=== PATIENT | female | born 1960 | race Caucasian/White ===

== ENCOUNTER → 2019-01-16 | Outpatient (CLI) | payer SELFPAY ==
--- NOTE | 2019-01-16 16:35 | XR ---
EXAMINATION TYPE: XR ribs LT DATE OF EXAM: 01/16/2019 COMPARISON: None HISTORY: Pain, fall TECHNIQUE: Two-view left RIBS FINDINGS: There are subtle lucencies extending through the cortex of the posterior lateral 11th and l ateral slightly posterior 10th ribs. This area appears to correlate with the patient's reported pain. No pneumothorax is evident. No additional areas suspicious for fracture are evident. IMPRESSION: 1. Posterior lateral fractures left 10th and 11th ribs.
== END | disposition home or self-care (01) ==
LOC: RADXRMAIN 13:20
PROVIDERS: ATTEND Family Medicine
DX: S22.42XA Multiple fractures of ribs, left side, initial encounter for closed fracture (principal)

== ENCOUNTER 2021-06-06 10:35 | Emergency (ER) | payer OTHER ==
[2021-06-06 10:50] VITALS: BP 161/85; PULSE 52; RESP 18; TEMP 98
[2021-06-06] MEDS ORDERED: SODIUM CHLORIDE 0.9% 1,000 ML IV STA (11:14)
[2021-06-06] MEDS ORDERED: ONDANSETRON 4 MG/2 ML VIAL IVP STA (11:15)
[2021-06-06] MEDS ORDERED: LORazepam 2 MG/ML INJ IV STA (11:15)
[2021-06-06 11:56] LABS: Basophils # (A) 0.1 k/uL (0-0.2); Basophils % (A) 1 %; Eosinophils # (A) 0.2 k/uL (0-0.7); Eosinophils % (A) 3 %; HCT 36.8 % (34.0-46.0); HGB 12.8 gm/dL (11.4-16.0); Lymphocytes # (A) 1.1 k/uL (1.0-4.8); Lymphocytes % (A) 16 %; MCH 34.1 pg (25.0-35.0); MCHC 34.8 g/dL (31.0-37.0); Mean Platelet Volume 9.2; Monocytes # (A) 0.5 k/uL (0-1.0); Monocytes % (A) 7 %; Neutrophils # (A) 4.8 k/uL (1.3-7.7); Neutrophils % (A) 70 %; Platelet Count 164 k/uL (150-450); RBC 3.75 m/uL (3.80-5.40); RDW 13.2 % (11.5-15.5); WBC 6.8 k/uL (3.8-10.6)
[2021-06-06 12:12] LABS: ALT 15 U/L (4-34); AST 27 U/L (14-36); African American GFR (CKD) >90 (>60 ml/min/1.73 sqM); Albumin 3.4 g/dL (3.5-5.0); Alkaline Phosphatase 97 U/L (38-126); Anion Gap 7 mmol/L; Blood Urea Nitrogen 11 mg/dL (7-17); Calcium 8.9 mg/dL (8.4-10.2); Carbon Dioxide 24 mmol/L (22-30); Chloride 104 mmol/L (98-107); Glucose 132 mg/dL (74-99); Non-African American GFR(CKD) >90 (>60 ml/min/1.73 sqM); Potassium 3.7 mmol/L (3.5-5.1); Sodium 135 mmol/L (137-145); Total Bilirubin 0.5 mg/dL (0.2-1.3); Total Protein 6.5 g/dL (6.3-8.2)
[2021-06-06 12:19] LABS: INR 0.9 (<1.2); Partial Thromboplastin Time 22.5 sec (22.0-30.0)
--- NOTE | 2021-06-06 12:19 | XR ---
EXAMINATION TYPE: XR chest 2V DATE OF EXAM: 06/06/2021 COMPARISON: NONE HISTORY: Weakness. TECHNIQUE: Frontal and lateral views of the chest are obtained. FINDINGS: There is mild chronic parenchymal change without suspicious focal air space opacity, pleur al effusion, or pneumothorax seen. The cardiac silhouette size is stable and within normal limits. O verlying EKG leads. Underlying scoliotic curvature or positioning seen. IMPRESSION: No acute process.
--- NOTE | 2021-06-06 12:22 | CT ---
EXAMINATION TYPE: CT brain wo con DATE OF EXAM: 06/06/2021 COMPARISON: None HISTORY: Weakness, dizziness, and vomiting. CT DLP: 1062.4 mGycm Automated exposure control for dose reduction was used. Helical imaging through the brain. FINDINGS: Periventricular, subcortical decreased attenuation is noted, there is no hemorrhage or hydrocephalus. Cerebral vascular calcifications are present. Calvarium is intact. Inflammatory change present withi n the maxillary sinus on the left, ethmoid air cells, sphenoid sinus, frontal sinus is atrophic. Orbi ts are symmetric. IMPRESSION: AGE-RELATED CHANGES OF ATROPHY AND PROBABLE CHRONIC SMALL VESSEL ISCHEMIA, CONSIDER MRI, FOLLOW-UP INDICATED. SINUS DISEASE.
--- NOTE | 2021-06-06 13:03 | ED ---
General Adult HPI - General Chief complaint: Dizziness Stated complaint: Vomiting/dizzy Time Seen by Provider: 06/06/21 11:05 Source: patient, RN notes reviewed, old records reviewed Mode of arrival: wheelchair Limitations: no limitations - History of Present Illness Initial comments: 61-year-old female presenting for evaluation of generalized weakness, dizziness. She states that she feels that the room is spinning. This began earlier today and was associated with nausea vomiting. She denies headache. Denies focal numbness or weakness. Denies any changes in her speech. She has had a cough as well as some congestion. No central chest pain. No palpitations. - Related Data Previous Rx's Medication Instructions Recorded Meclizine [Antivert] 25 mg PO BID PRN #10 tab 06/06/21 Allergies Allergy/AdvReac Type Severity Reaction Status Date / Time No Known Allergies Allergy Verified 06/06/21 11:53 Review of Systems ROS Statement: Those systems with pertinent positive or pertinent negative responses have been documented in the HPI. ROS Other: All systems not noted in ROS Statement are negative. Past Medical History Past Medical History: Myocardial Infarction ([place]) History of Any Multi-Drug Resistant Organisms: None Reported Past Surgical History: Appendectomy, Back Surgery, Heart Catheterization With Stent, Hysterectomy Additional Past Surgical History / Comment(s): R oophrectomy Past Psychological History: No Psychological Hx Reported Smoking Status: Current every day smoker Past Alcohol Use History: None Reported Past Drug Use History: None Reported General Exam Limitations: no limitations General appearance: alert, in no apparent distress Head exam: Present: atraumatic, normocephalic Eye exam: Present: normal appearance, PERRL ENT exam: Present: normal exam Neck exam: Present: normal inspection. Absent: tenderness, meningismus Respiratory exam: Present: rhonchi. Absent: respiratory distress Cardiovascular Exam: Present: normal rhythm, bradycardia GI/Abdominal exam: Present: soft. Absent: distended, tenderness, guarding, rebound Extremities exam: Present: normal inspection, normal capillary refill. Absent: pedal edema Neurological exam: Present: alert, oriented X3, CN II-XII intact, other (No ataxia, normal finger to nose bilaterally, nonfocal exam NIH is 0). Absent: motor sensory deficit Psychiatric exam: Present: normal affect, normal mood Skin exam: Present: warm, dry, intact. Absent: cyanosis, diaphoretic Course Vital Signs 06/06/21 10:46 Temperature 98 F Pulse Rate 52 L Respiratory 18 Rate Blood Pressure 161/85 O2 Sat by Pulse 96 Oximetry EKG Findings - EKG Comments: EKG Findings:: EKG: Sinus bradycardia, rate 44 OR interval 166, QRS duration 84, QTC [address] segment elevation. Medical Decision Making - Medical Decision Making 61-year-old female presenting with an episode of dizziness and vomiting. Patient is otherwise well-appearing. She is not ataxic there is no nystagmus. She has no focal neurological findings. No headache. No abdominal pain. She has a normal CBC, normal CMP, negative troponin. She has no urinary symptoms but was unable to give a urine analysis in the emergency department. Head CT was performed which shows cerebral atrophy without acute change. Chest x-ray is clear. Patient reevaluated multiple times. She is feeling better, vomiting and vertigo resolved. She is eager for discharge. Strict return parameters were discussed. - Lab Data Result diagrams: 06/06/21 11:24 06/06/21 11:24 Lab Results 06/06/21 06/06/21 06/06/21 Range/Units 11:24 11:24 11:24 WBC 6.8 (3.8-10.6) k/uL RBC 3.75 L (3.80-5.40) m/uL Hgb 12.8 (11.4-16.0) gm/dL Hct 36.8 (34.0-46.0) % MCV 98.0 (80.0-100.0) fL MCH 34.1 (25.0-35.0) pg MCHC 34.8 (31.0-37.0) g/dL RDW 13.2 (11.5-15.5) % Plt Count 164 (150-450) k/uL MPV 9.2 Neutrophils % 70 % Lymphocytes % 16 % Monocytes % 7 % Eosinophils % 3 % Basophils % 1 % Neutrophils # 4.8 (1.3-7.7) k/uL Lymphocytes # 1.1 (1.0-4.8) k/uL Monocytes # 0.5 (0-1.0) k/uL Eosinophils # 0.2 (0-0.7) k/uL Basophils # 0.1 (0-0.2) k/uL PT 10.0 (9.0-12.0) sec INR 0.9 (<1.2) APTT 22.5 (22.0-30.0) sec Sodium 135 L (137-145) mmol/L Potassium 3.7 (3.5-5.1) mmol/L Chloride 104 (98-107) mmol/L Carbon Dioxide 24 (22-30) mmol/L Anion Gap 7 mmol/L BUN 11 (7-17) mg/dL Creatinine 0.67 (0.52-1.04) mg/dL Est GFR (CKD-EPI)AfAm >90 (>60 ml/min/1.73 sqM) Est GFR (CKD-EPI)NonAf >90 (>60 ml/min/1.73 sqM) Glucose 132 H (74-99) mg/dL Plasma Lactic Acid [place] (0.7-2.0) mmol/L Calcium 8.9 (8.4-10.2) mg/dL Magnesium 2.0 (1.6-2.3) mg/dL Total Bilirubin 0.5 (0.2-1.3) mg/dL AST 27 (14-36) U/L ALT 15 (4-34) U/L Alkaline Phosphatase 97 (38-126) U/L Troponin I (0.000-0.034) ng/mL Total Protein 6.5 (6.3-8.2) g/dL Albumin 3.4 L (3.5-5.0) g/dL Coronavirus (PCR) (Not Detectd) 06/06/21 06/06/21 06/06/21 Range/Units 11:24 11:24 11:37 WBC (3.8-10.6) k/uL RBC (3.80-5.40) m/uL Hgb (11.4-16.0) gm/dL Hct (34.0-46.0) % MCV (80.0-100.0) fL MCH (25.0-35.0) pg MCHC (31.0-37.0) g/dL RDW (11.5-15.5) % Plt Count (150-450) k/uL MPV Neutrophils % % Lymphocytes % % Monocytes % % Eosinophils % % Basophils % % Neutrophils # (1.3-7.7) k/uL Lymphocytes # (1.0-4.8) k/uL Monocytes # (0-1.0) k/uL Eosinophils # (0-0.7) k/uL Basophils # (0-0.2) k/uL PT (9.0-12.0) sec INR (<1.2) APTT (22.0-30.0) sec Sodium (137-145) mmol/L Potassium (3.5-5.1) mmol/L Chloride (98-107) mmol/L Carbon Dioxide (22-30) mmol/L Anion Gap mmol/L BUN (7-17) mg/dL Creatinine (0.52-1.04) mg/dL Est GFR (CKD-EPI)AfAm (>60 ml/min/1.73 sqM) Est GFR (CKD-EPI)NonAf (>60 ml/min/1.73 sqM) Glucose (74-99) mg/dL Plasma Lactic Acid [place] 1.1 (0.7-2.0) mmol/L Calcium (8.4-10.2) mg/dL Magnesium (1.6-2.3) mg/dL Total Bilirubin (0.2-1.3) mg/dL AST (14-36) U/L ALT (4-34) U/L Alkaline Phosphatase (38-126) U/L Troponin I <0.012 (0.000-0.034) ng/mL Total Protein (6.3-8.2) g/dL Albumin (3.5-5.0) g/dL Coronavirus (PCR) Not Detected (Not Detectd) Disposition Clinical Impression: Vertigo Disposition: HOME SELF-CARE Condition: Good Instructions (If sedation given, give patient instructions): Dizziness (ED) Prescriptions: Meclizine [Antivert] 25 mg PO BID PRN #10 tab PRN Reason: Vertigo Is patient prescribed a controlled substance at d/c from ED?: No Referrals: Bello Travis MD [Primary Care Provider] - 1-2 days Time of Disposition: 14:50
== END 2021-06-06 15:30 | disposition home or self-care (01) ==
LOC: EC 10:35
DX: R42 Dizziness and giddiness (principal); I25.2 Old myocardial infarction; F17.200 Nicotine dependence, unspecified, uncomplicated
CPT/HCPCS: 93005; 80053; 83605; 83735; 84484; 85025; 85610; 85730; 87635; 71046; 70450; 99284; 96374; 96375; J2060; J2405

== ENCOUNTER 2021-10-04 08:56 | Inpatient (IN) | payer OTHER ==
[2021-10-04] MEDS ORDERED: SODIUM CHLORIDE 0.9% 500 ML 500 ML IV STA (09:04)
[2021-10-04] MEDS ORDERED: KETOROLAC 15 MG/ML 1 ML VIAL IVP STA (09:16)
--- NOTE | 2021-10-04 09:22 | ED ---
General Adult HPI <Olvin Durand - Last Filed: 10/04/21 09:56> - General Source: patient, RN notes reviewed, old records reviewed Mode of arrival: wheelchair Limitations: no limitations - History of Present Illness -: days(s) (2) Location: left, upper extremity (arm) Severity scale (1-10): 4 Quality: constant, other ("feels like gas pain") Consistency: constant Improves with: none Worsens with: none Associated Symptoms: other (Epigastric pain) Treatments Prior to Arrival: Aspirin <Serge De Anda - Last Filed: 10/04/21 15:11> - General Chief complaint: Extremity Injury, Upper Stated complaint: L arm pain Time Seen by Provider: 10/04/21 09:10 - History of Present Illness Initial comments: This is a well-appearing 61-year-old female that presents to the emergency room with 2 days of left arm pain and epigastric pain. Patient states that the arm pain did not go away so she called her daughter to bring her to the hospital today. She states that the pain in the left arm originates mid forearm and goes up into her neck. She denies any chest pain or shortness of breath. No nausea, vomiting, diarrhea or fevers. She states that she did feel a little sweaty this morning. She does have a history of an [place] [address] Person. She did take a baby aspirin this morning. (Serge De Anda) - Related Data Home Medications Medication Instructions Recorded Confirmed Meclizine [Antivert] 25 mg PO DAILY PRN 10/04/21 10/04/21 Allergies Allergy/AdvReac Type Severity Reaction Status Date / Time No Known Allergies Allergy Verified 10/04/21 11:01 Review of Systems ROS Other: All systems not noted in ROS Statement are negative. <Olvin Durand - Last Filed: 10/04/21 09:56> ROS Other: All systems not noted in ROS Statement are negative. <Serge De Anda - Last Filed: 10/04/21 15:11> ROS Statement: Those systems with pertinent positive or pertinent negative responses have been documented in the HPI. Past Medical History Past Medical History: Myocardial Infarction ([place]) History of Any Multi-Drug Resistant Organisms: None Reported Past Surgical History: Appendectomy, Back Surgery, Heart Catheterization With Stent, Hysterectomy Additional Past Surgical History / Comment(s): R oophrectomy Past Psychological History: No Psychological Hx Reported Smoking Status: Current every day smoker Past Alcohol Use History: None Reported Past Drug Use History: None Reported <Serge De Anda - Last Filed: 10/04/21 15:11> General Exam Limitations: no limitations General appearance: alert, in no apparent distress Head exam: Absent: atraumatic Eye exam: Absent: scleral icterus, conjunctival injection Neck exam: Present: normal inspection, full ROM. Absent: tenderness, meni ngismus, lymphadenopathy, thyromegaly Respiratory exam: Present: normal lung sounds bilaterally. Absent: respiratory distress, wheezes, rales, rhonchi, stridor, chest wall tenderness, accessory muscle use, decreased breath sounds Cardiovascular Exam: Present: bradycardia (51), normal heart sounds. Absent: irregular rhythm, JVD GI/Abdominal exam: Present: soft. Absent: distended, tenderness, guarding, rebound, rigid Extremities exam: Present: normal inspection, normal capillary refill. Absent: tenderness, pedal edema, joint swelling Left Upper Arm exam: Present: normal inspection, full ROM. Absent: tenderness Elbow exam: Present: normal inspection, full ROM. Absent: tenderness Forearm Wrist exam: Present: normal inspection, full ROM, tenderness (mid forearm with deep palpation). Absent: swelling, erythema, tenderness over anatomical snuff box Hand Wrist exam: Present: normal inspection, full ROM. Absent: tenderness, swelling, erythema Vascular: Present: normal capillary refill, radial pulse. Absent: vascular compromise Back exam: Absent: tenderness, CVA tenderness (R), CVA tenderness (L) Neurological exam: Present: alert, oriented X3 Psychiatric exam: Present: normal affect, normal mood Skin exam: Present: warm, dry, intact, normal color. Absent: rash, cyanosis, diaphoretic, petechiae, pallor <Serge De Anda - Last Filed: 10/04/21 15:11> Course - Reevaluation(s) Time: 09:30 <Serge De Anda - Last Filed: 10/04/21 15:11> Vital Signs 10/04/21 10/04/21 10/04/21 08:57 09:56 10:03 Temperature 96.5 F L Pulse Rate 49 L 58 L 51 L Respiratory 18 19 18 Rate Blood Pressure 160/83 193/84 184/83 O2 Sat by Pulse 99 99 100 Oximetry - Reevaluation(s) Reevaluation #1: 10/04/21 09:43 Dr. Durand reviewed EKG, at bedside to evaluate patient. (Serge De Anda) EKG Findings - EKG Results: EKG: sinus rhythm EKG shows: bradycardia (Ventricular rate 51, GA interval 0.128, QRS 0.94, QTC 0.493; old EKG 10/04/21; ST elevation noted in leads III and aVF) <Serge De Anda - Last Filed: 10/04/21 15:11> Medical Decision Making - Lab Data Result diagrams: 10/04/21 09:23 10/04/21 09:23 <Olvin Durand - Last Filed: 10/04/21 09:56> - Lab Data Result diagrams: 10/04/21 09:23 10/04/21 09:23 <Serge De Anda - Last Filed: 10/04/21 15:11> - Medical Decision Making PA attestation: I, Dr. Olvin Durand, personally saw and examined the patient. I have reviewed and agree with the resident/PA findings, including all diagnostic interpretations and treatment plans as written unless otherwise stated. I was present for the guy portions of any procedures performed and inclusive time noted for any critical care statement. Patient was seen and evaluated at the bedside along with nurse practitioner. Briefly patient is a 61-year-old female presents to the emergency Department with atypical chest pain with typical features. She initially states that she had epigastric pain and left wrist pain that radiated up her upper extremity into her axilla. Initial EKG showed mild See elevations in 2 of the 3 inferior leads. Repeat EKG showed dynamic changes with STEMI changes in inferior leads and also reciprocal changes. Code STEMI page. Case discussed with furniture restorer television news photographer, Dr. Manriquez was agreeable with [facility] activation. Patient given full dose of aspirin. (Olvin Durand) 61-year-old female that presents with left arm pain and epigastric pain for 2 days. EKG shows some concerning ST changes in leads III and aVF. Dr. Durand at bedside to evaluate patient. Repeat EKG completed and given to Dr. Bayudan now showing ST elevating with reciprocal changes. Troponin is positive at 0.40 . Code STEMI was paged and patient was taken to [facility]. (Serge De Anda) - Lab Data Lab Results 10/04/21 10/04/21 10/04/21 Range/Units 09:23 09:23 09:23 WBC 5.6 (3.8-10.6) k/uL RBC 4.18 (3.80-5.40) m/uL Hgb 13.9 (11.4-16.0) gm/dL Hct 41.6 (34.0-46.0) % MCV 99.5 (80.0-100.0) fL MCH 33.1 (25.0-35.0) pg MCHC 33.3 (31.0-37.0) g/dL RDW 13.7 (11.5-15.5) % Plt Count 159 (150-450) k/uL MPV 8.6 Neutrophils % 73 % Lymphocytes % 17 % Monocytes % 5 % Eosinophils % 3 % Basophils % 1 % Neutrophils # 4.1 (1.3-7.7) k/uL Lymphocytes # 0.9 L (1.0-4.8) k/uL Monocytes # 0.3 (0-1.0) k/uL Eosinophils # 0.2 (0-0.7) k/uL Basophils # 0.0 (0-0.2) k/uL PT 10.0 (9.0-12.0) sec INR 0.9 (<1.2) APTT 21.9 L (22.0-30.0) sec Sodium (137-145) mmol/L Potassium (3.5-5.1) mmol/L Chloride (98-107) mmol/L Carbon Dioxide (22-30) mmol/L Anion Gap mmol/L BUN (7-17) mg/dL Creatinine (0.52-1.04) mg/dL Est GFR (CKD-EPI)AfAm (>60 ml/min/1.73 sqM) Est GFR (CKD-EPI)NonAf (>60 ml/min/1.73 sqM) Glucose (74-99) mg/dL Plasma Lactic Acid [place]isteo (0.7-2.0) mmol/L Calcium (8.4-10.2) mg/dL Total Bilirubin (0.2-1.3) mg/dL AST (14-36) U/L ALT (4-34) U/L Alkaline Phosphatase (38-126) U/L Troponin I (0.000-0.034) ng/mL Total Protein (6.3-8.2) g/dL Albumin (3.5-5.0) g/dL Amylase (30-110) U/L Lipase (23-300) U/L Urine Color Light Yellow Urine Appearance Clear (Clear) Urine pH 6.5 (5.0-8.0) Ur Specific [place] 1.050 H (1.001-1.035) Urine Protein Negative (Negative) Urine Glucose (UA) Negative (Negative) Urine Ketones Negative (Negative) Urine Blood Negative (Negative) Urine Nitrite Negative (Negative) Urine Bilirubin Negative (Negative) Urine Urobilinogen <2.0 (<2.0) mg/dL Ur Leukocyte Esterase Negative (Negative) 10/04/21 10/04/21 10/04/21 Range/Units 09:23 09:23 09:23 WBC (3.8-10.6) k/uL RBC (3.80-5.40) m/uL Hgb (11.4-16.0) gm/dL Hct (34.0-46.0) % MCV (80.0-100.0) fL MCH (25.0-35.0) pg MCHC (31.0-37.0) g/dL RDW (11.5-15.5) % Plt Count (150-450) k/uL MPV Neutrophils % % Lymphocytes % % Monocytes % % Eosinophils % % Basophils % % Neutrophils # (1.3-7.7) k/uL Lymphocytes # (1.0-4.8) k/uL Monocytes # (0-1.0) k/uL Eosinophils # (0-0.7) k/uL Basophils # (0-0.2) k/uL PT (9.0-12.0) sec INR (<1.2) APTT (22.0-30.0) sec Sodium 134 L (137-145) mmol/L Potassium 4.6 (3.5-5.1) mmol/L Chloride 103 (98-107) mmol/L Carbon Dioxide 26 (22-30) mmol/L Anion Gap 5 mmol/L BUN 16 (7-17) mg/dL Creatinine 0.77 (0.52-1.04) mg/dL Est GFR (CKD-EPI)AfAm >90 (>60 ml/min/1.73 sqM) Est GFR (CKD-EPI)NonAf 83 (>60 ml/min/1.73 sqM) Glucose 122 H (74-99) mg/dL Plasma Lactic Acid [place] 1.0 (0.7-2.0) mmol/L Calcium 8.6 (8.4-10.2) mg/dL Total Bilirubin 0.7 (0.2-1.3) mg/dL AST 34 (14-36) U/L ALT 15 (4-34) U/L Alkaline Phosphatase 67 (38-126) U/L Troponin I 0.400 H* (0.000-0.034) ng/mL Total Protein 7.5 (6.3-8.2) g/dL Albumin 4.1 (3.5-5.0) g/dL Amylase 99 (30-110) U/L Lipase 146 (23-300) U/L Urine Color Urine Appearance (Clear) Urine pH (5.0-8.0) Ur Specific [place] (1.001-1.035) Urine Protein (Negative) Urine Glucose (UA) (Negative) Urine Ketones (Negative) Urine Blood (Negative) Urine Nitrite (Negative) Urine Bilirubin (Negative) Urine Urobilinogen (<2.0) mg/dL Ur Leukocyte Esterase (Negative) Critical Care Time Critical Care Time: Yes Total Critical Care Time: 35 <Serge De Anda - Last Filed: 10/04/21 15:11> Disposition <Olvin Durand - Last Filed: 10/04/21 09:56> Decision Date: 10/04/21 <Serge De Anda - Last Filed: 10/04/21 15:11> Clinical Impression: STEMI (ST elevation myocardial infarction) Disposition: ADMITTED IP TO THIS HOSP
[2021-10-04] MEDS ORDERED: PANTOPRAZOLE 40 MG/10 ML VIAL IVP STA (09:30)
[2021-10-04] MEDS ORDERED: ASPIRIN 81 MG PO STA ×2 (09:30→09:44)
[2021-10-04 09:37] LABS: Basophils % (A) 1 %; Eosinophils # (A) 0.2 k/uL (0-0.7); Eosinophils % (A) 3 %; HCT 41.6 % (34.0-46.0); HGB 13.9 gm/dL (11.4-16.0); Lymphocytes # (A) 0.9 k/uL (1.0-4.8); Lymphocytes % (A) 17 %; MCH 33.1 pg (25.0-35.0); MCHC 33.3 g/dL (31.0-37.0); MCV 99.5 fL (80.0-100.0); Mean Platelet Volume 8.6; Monocytes # (A) 0.3 k/uL (0-1.0); Monocytes % (A) 5 %; Neutrophils # (A) 4.1 k/uL (1.3-7.7); Neutrophils % (A) 73 %; Platelet Count 159 k/uL (150-450); RBC 4.18 m/uL (3.80-5.40); RDW 13.7 % (11.5-15.5); WBC 5.6 k/uL (3.8-10.6)
[2021-10-04] MEDS ORDERED: HYDROmorphone 0.5 MG/0.5 ML SYRINGE IVP STA (09:41)
[2021-10-04 09:44] LABS: ALT 15 U/L (4-34); AST 34 U/L (14-36); African American GFR (CKD) >90 (>60 ml/min/1.73 sqM); Albumin 4.1 g/dL (3.5-5.0); Alkaline Phosphatase 67 U/L (38-126); Amylase 99 U/L (30-110); Anion Gap 5 mmol/L; Blood Urea Nitrogen 16 mg/dL (7-17); Calcium 8.6 mg/dL (8.4-10.2); Carbon Dioxide 26 mmol/L (22-30); Chloride 103 mmol/L (98-107); Glucose 122 mg/dL (74-99); Lipase 146 U/L (23-300); Non-African American GFR(CKD) 83 (>60 ml/min/1.73 sqM); Potassium 4.6 mmol/L (3.5-5.1); Sodium 134 mmol/L (137-145); Total Bilirubin 0.7 mg/dL (0.2-1.3); Total Protein 7.5 g/dL (6.3-8.2)
[2021-10-04] MEDS ORDERED: HEPARIN SODIUM 1,000 UN/ML (10ML VL) IV PRN (09:45)
[2021-10-04] MEDS ORDERED: HEPARIN SODIUM 1,000 UN/ML (10ML VL) IV ONE (09:45)
[2021-10-04] MEDS ORDERED: HEPARIN SOD,PORK IN 0.45% NACL 25,000 UNIT in 0.45% NACL 1 250ML.BAG IV SCH (09:45)
[2021-10-04] MEDS ORDERED: NALOXONE 0.4 MG/ML 1 ML VIAL IV PRN (09:46)
[2021-10-04 09:48] LABS: INR 0.9 (<1.2)
[2021-10-04 09:50] LABS: Partial Thromboplastin Time 21.9 sec (22.0-30.0)
[2021-10-04] MEDS: SODIUM CHLORIDE 0.9% 1,000 ML IV SCH ×2 (10:02→20:11)
[2021-10-04] MEDS ORDERED: HEPARIN SODIUM 1,000 UN/ML (10ML VL) ONE (10:15)
[2021-10-04] MEDS ORDERED: VERAPAMIL 2.5 MG/ML 2 ML AMP ONE (10:15)
[2021-10-04] MEDS ORDERED: LIDOCAINE 1% INJ 10MG/ML (20 ML MDV) ONE (10:15)
[2021-10-04] MEDS ORDERED: fentaNYL (PF) 50 MCG/ML 2 ML AMP ONE (10:15)
--- NOTE | 2021-10-04 10:17 | P.CRDCN ---
History of Present Illness Consult date: 10/04/21 History of present illness: History of Present Illness: The patient is a 61-year-old female with a known history of chronic tobacco use who presented with bilateral arm discomfort going on for the last few days worse today. Her initial EKG showed mild ST segment changes but subsequently had significant ST elevation inferiorly with ST depression anteriorly. The patient has a prior history of CAD status post [place] [address] Person but has not been followed. She has some dyspnea on exertion but no chronic chest discomfort. She denies any dizziness, palpitations or syncope. She denies any PND, orthopnea or peripheral edema. She is only taking aspirin and meclizine on a when necessary basis. She smokes on a regular basis. She denies any diabetes, her lipid profile is not available to me. Review of Systems: Respiratory: She has chronic tobacco use and some dyspnea on exertion GI: She had nausea and vomiting today. No history of peptic ulcer disease. No recent GI bleed. : No hematuria or dysuria. Nervous System: No stroke or seizure. Physical Examination: 61-year-old female with small body weight, no apparent distress. Blood pressure 184/80 with a heart rate in the 50s Head: Normocephalic. Eyes: Sclerae nonicteric. Neck: Good carotid upstroke, no bruit, no jugular venous distention. Lungs: Decrease air exchange bilaterally Heart: Regular rate and rhythm, S1-S2, no S3, no rub. No murmur. Abdomen: Soft nontender, positive bowel sounds no organomegaly. Extremities: No edema, intact distal pulses. Labs: Significant EKG shows sinus mechanism with ST segment elevation in lead [address] depression in the anterior precordial leads. Troponin 0.4, BUN/creatinine 16 and 0.77, hemoglobin 13.9. Impression: 1. Acute inferolateral wall myocardial infarction with ST depression anteriorly consistent with probable RV infarct or posterior extension 2. History of chronic tobacco use 3. Prior history of CAD and stenting, details not available Plan: 1. Proceed with emergency cardiac catheterization, the procedure as well as the risks and the complications were discussed with the patient and her family. They are in full understanding and agreement 2. Add statin 3. Obtain an echocardiogram with Doppler 4. Depending on her progress further recommendations will be made 5. Thank you for this consult we will follow with you. Past Medical History Past Medical History: Myocardial Infarction ([place]) History of Any Multi-Drug Resistant Organisms: None Reported Past Surgical History: Appendectomy, Back Surgery, Heart Catheterization With Stent, Hysterectomy Additional Past Surgical History / Comment(s): R oophrectomy Past Psychological History: No Psychological Hx Reported Smoking Status: Current every day smoker Past Alcohol Use History: None Reported Past Drug Use History: None Reported Medications and Allergies Home Medications Medication Instructions Recorded Confirmed Type Meclizine [Antivert] 25 mg PO BID PRN #10 tab 06/06/21 Rx Allergies Allergy/AdvReac Type Severity Reaction Status Date / Time No Known Allergies Allergy Verified 10/04/21 09:02 Physical Exam Vitals: Vital Signs Temp Pulse Resp BP Pulse Ox 10/04/21 10:03 51 L 18 184/83 100 10/04/21 09:56 58 L 19 193/84 99 10/04/21 08:57 96.5 F L 49 L 18 160/83 99 Intake and Output 10/03/21 10/04/21 10/04/21 22:59 06:59 14:59 Other: Weight 40.37 kg Results 10/04/21 09:23 10/04/21 09:23 Cardiac Enzymes 10/04/21 10/04/21 Range/Units 09:23 09:23 AST 34 (14-36) U/L Troponin I 0.400 H* (0.000-0.034) ng/mL Coagulation 10/04/21 Range/Units 09:23 PT 10.0 (9.0-12.0) sec APTT 21.9 L (22.0-30.0) sec CBC 10/04/21 Range/Units 09:23 WBC 5.6 (3.8-10.6) k/uL RBC 4.18 (3.80-5.40) m/uL Hgb 13.9 (11.4-16.0) gm/dL Hct 41.6 (34.0-46.0) % Plt Count 159 (150-450) k/uL Comprehensive Metabolic Panel 10/04/21 Range/Units 09:23 Sodium 134 L (137-145) mmol/L Potassium 4.6 (3.5-5.1) mmol/L Chloride 103 (98-107) mmol/L Carbon Dioxide 26 (22-30) mmol/L BUN 16 (7-17) mg/dL Creatinine 0.77 (0.52-1.04) mg/dL Glucose 122 H (74-99) mg/dL Calcium 8.6 (8.4-10.2) mg/dL AST 34 (14-36) U/L ALT 15 (4-34) U/L Alkaline Phosphatase 67 (38-126) U/L Total Protein 7.5 (6.3-8.2) g/dL Albumin 4.1 (3.5-5.0) g/dL Current Medications Generic Name Dose Route Start Last Admin Trade Name Freq PRN Reason Stop Dose Admin Heparin Sodium (Porcine) 0 unit 10/04/21 09:45 Heparin Sodium 1,000 Un/Ml (10ml Vl) IV PER PROTOCOL PRN Low PTT Protocol Heparin Sodium/Sodium Chloride 250 mls @ 4.844 mls/hr 10/04/21 09:45 25,000 unit/ Sodium Chloride IV .Q24H PRINCE Protocol 12 UNITS/KG/HR Sodium Chloride 1,000 mls @ 80 mls/hr 10/04/21 10:00 10/04/21 10:02 Saline 0.9% IV 80 mls/hr .[id number] PRINCE Administration Naloxone HCl 0.2 mg 10/04/21 09:46 Naloxone 0.4 Mg/Ml 1 Ml Vial IV Q2M PRN Opioid Reversal Intake and Output 10/03/21 10/04/21 10/04/21 22:59 06:59 14:59 Other: Weight 40.37 kg Patient Weight 10/05/21 06:59 Weight 40.37 kg 10/04/21 09:23 10/04/21 09:23
--- NOTE | 2021-10-04 10:22 | XR ---
EXAMINATION TYPE: XR chest 1V portable DATE OF EXAM: 10/04/2021 9:54 AM COMPARISON:Chest radiographs from 06/06/2021 TECHNIQUE: XR chest 1V portable Frontal view of the chest. CLINICAL INDICATION:Female, 61 years old with history of abdominal pain; FINDINGS: Lungs/Pleura: There is flattening of the diaphragm with increased lucency of the lungs. No evidence o f pneumothorax, pleural effusion or focal consolidation. Pulmonary vascularity: Unremarkable. Heart/mediastinum: Cardiomediastinal silhouette is unremarkable. Musculoskeletal: No acute osseous pathology. IMPRESSION: 1. No acute cardiopulmonary disease process. 2. COPD changes.
[2021-10-04] MEDS ORDERED: fentaNYL (PF) 50 MCG/ML 2 ML AMP IV ONE (10:28)
[2021-10-04] MEDS ORDERED: LIDOCAINE 1% INJ 10MG/ML (20 ML MDV) SQ ONE (10:30)
[2021-10-04] MEDS ORDERED: IV FLUID CONTINUATION 1,000 ML IV ONE (10:33)
[2021-10-04] MEDS ORDERED: VERAPAMIL SYRINGE (5 MG/10 ML) INTRAARTER ONE (10:33)
[2021-10-04] MEDS ORDERED: TICAGRELOR 90 MG TAB ONE (10:37)
[2021-10-04] MEDS ORDERED: TICAGRELOR 90 MG TAB PO ONE (10:41)
[2021-10-04] MEDS: NITROGLYCERIN 1000MCG/10ML SYRINGE INTRACORON ONE ×2 (10:42→10:59)
[2021-10-04] MEDS ORDERED: IOPAMIDOL-370 125ML BTL INJ ONE (10:52)
[2021-10-04] MEDS ORDERED: amLODIPine 5 MG TAB ONE (11:14)
[2021-10-04] MEDS ORDERED: amLODIPine 5 MG TAB PO ONE (11:15)
[2021-10-04] MEDS ORDERED: IOPAMIDOL-370 100ML BTL INJ ONE (11:20)
[2021-10-04] MEDS ORDERED: NITROGLYCERIN SL TABS 0.4 MG TAB SUBLINGUAL PRN (11:28)
[2021-10-04] MEDS ORDERED: MAG HYDROX/AL HYDROX/SIMETH 30 ML CUP PO PRN (11:28)
[2021-10-04] MEDS ORDERED: ZOLPIDEM 5 MG TAB PO PRN (11:28)
[2021-10-04] MEDS ORDERED: ATROPINE SULFATE 0.1 MG/ML 10ML SYRINGE IV PRN (11:28)
[2021-10-04] MEDS ORDERED: RX INFO: IV CONTRAST WAS GIVEN 1 EACH MISC MISCELLANE PRN (11:28)
[2021-10-04] MEDS ORDERED: SODIUM CHLORIDE 0.9% 1,000 ML in EMPTY BAG 1 BAG IV SCH (11:30)
--- NOTE | 2021-10-04 11:45 | P.CARDCATH ---
Date of Procedure: 10/04/21 Description of Procedure: Cardiac Catheterization: The patient is a 53-year-old female with a known history of coronary disease, status post stenting of the circumflex in 2008, history of chronic tobacco use who has not been followed in the office and presents with arm discomfort. Initial EKG shows no acute diagnostic changes and on a follow-up EKG she had ST segment elevation in the inferior leads. Recommendations were made regarding cardiac catheterization, the risks and the complications were discussed with the patient who is in full understanding and agreement. Procedure Description: Patient was brought to prosthetic lab technician in fasting semi-sedated state after receiving Fentanyl and Benadryl achieiving moderate conscious sedated state. Using Xylocaine Anesthesia and Seldinger technique, a 6-Cambodian sheath was introduced in the right radial artery . Subsequently, selective coronary angiography performed using a 5-Cambodian 3-1/2 bend left Herminia and 6-Cambodian 4 bend right guiding catheter. After performing angioplasty and stenting of the RCA images of the left coronary system were performed. Multiple views of the coronary artery including hemiaxial views were obtained. The 5-Cambodian Pigtail catheter was used to cross the aortic valve and LVEDP was calculated. . There was no immediate complication. Patient was returned to room in stable condition. Of note, the patient received a total of 2000 units of intravenous heparin as well as intra-arterial verapamil. There was no immediate complications. Findings: Fluoroscopy showed severe calcifications of the coronary arteries Left main: This is a short sized vessel, bifurcating into LAD and left circumflex left main has no evidence of high-grade stenosis LAD: This is a large size vessel, reaching to the apex giving rise to 2 small diagonal branch the LAD has intimal disease in the proximal and midsegment of 20-30% with no high-grade stenosis Left circumflex: This is a nondominant vessel, giving rise to 2 large obtuse margin branch. The stented segment proximally is patent with mild in-stent restenosis of 2030%, there is diffuse intimal disease in the proximal ascending in the obtuse marginal branch with no high-grade stenosis. RCA: This is a large dominant vessel, bifurcating distally to PDA and PLV, the mid segment is calcified and has areas stenosis up to 70%. At the distal segment prior to the bifurcation there is 99% stenosis. The PLV has 60-70% stenosis Left Ventriculogram: Was not performed Hemodynamics: There was no gradient across the aortic valve, LVEDP 20 mmHg Conclusion: 1. Calcified coronary arteries 2. Subtotally occluded distal RCA with diffuse significant disease in the midsegment 3. Patent stent in the circumflex with mild disease 4. Mild disease in the RCA Recommendations: I have recommended to proceed with angioplasty and stenting, the procedure as well as the risks and the complications were discussed with the patient who was in full understanding and agreement.
[2021-10-04 11:48] LABS: Glucose,Whole Blood 117 mg/dL (75-99)
--- NOTE | 2021-10-04 11:52 | P.CARDCATH ---
Date of Procedure: 10/04/21 Description of Procedure: PERCUTANEOUS TRANSLUMINAL CORONARY ANGIOPLASTY CLINICAL INFORMATION: The patient is a 61-year-old female with a known history of coronary disease who presented with arm discomfort, initial EKG showed no acute changes on the subsequent EKG she had ST segment elevation inferiorly, she underwent cardiac catheterization and was found to have subtotally occluded distal RCA with diffuse significant disease in the mid RCA. Recommendations were made regarding angioplasty and stenting. The procedure as well as the risks and the complications were discussed with the patient who is in full agreement and understanding. PROCEDURE: A 6 [place] 4 bend right Herminia guiding catheter was introduced into the system. After cannulating the right coronary ostium, a 0.014 balanced medium J-wire was advanced across the lesion and positioned distally. Following that the 2.5 x 12 mm Treck balloon was advanced into inflation at 8 hira were done. Following that a 2.5 x 15 mm Xience myra point stent was deployed. It was dilated at 16. Proximal to that stent 2.5 x 33 mm Xience myra point stent deployed and postdilated at 16 hira and after removing the balloon another 2.75 x 28 mm Xience myra point stent was deployed and postdilated at 16 hira. Following that a 2.0 x 3 mm NC Treck balloon was advanced and multiple inflation at maximum of 10 hira were done. After the last inflation, after appropriate wait, the balloon and the guidewire were withdrawn back into the guiding catheter. Images were obtained and repeated. Those images reveal stable successful stenting. At that point, the guiding catheter, the balloon, and guidewire were removed. Images of the left coronary system and LVEDP were obtained The sheath was removed. Hemostasis was obtained with deployment for TR band. There were no immediate complications. The patient was returned to the room in stable condition. Of note, the patient received 2000 units of heparin as well as Brilinta. Her ACT was followed. She had arm discomfort and EKG changes that resolved at the end of the procedure RESULTS: Successful stenting of the distal RCA with a long lesion in the midsegment with reduction of stenosis from 99 % to 0 %. RECOMMENDATIONS: The patient will be continued on dual antiplatelet treatment for one year. The importance of close follow-up and aggressive risk modification was discussed with the patient and her family and therefore and standing and agreement. Duration of sedation 54 minutes.
[2021-10-04 12:25] LABS: Appearance,Urine Clear (Clear); Bilirubin,Urine Negative (Negative); Blood,Urine Negative (Negative); Color,Urine Light Yellow; Glucose,Urine (UA) Negative (Negative); Ketones,Urine Negative (Negative); Leukocyte Esterase,Urine Negative (Negative); Nitrite,Urine Negative (Negative); PH, Urine 6.5 (5.0-8.0); Protein,Urine Negative (Negative); Urobilinogen,Urine <2.0 mg/dL (<2.0)
[2021-10-04] MEDS: lisinopriL 5 MG TAB PO SCH ×2 (12:36→20:05)
--- NOTE | 2021-10-04 16:00 | P.HPIM ---
History of Present Illness This is a pleasant 61 years old female with past medical history of coronary artery disease and stent placement, she is current cigarette smoker, who presents with bilateral arm pain for the last 2 days, this morning her pain was worse so she decided to come to the hospital. She denies any chest pain or dyspnea, she does not look in distress while sitting in bed. No other specific complaints. She admits to smoking half pack per day and she was counseled to quit. No alcohol or illicit drug Review of Systems Review of systems CONSTITUTIONAL: No fever, no malaise, no fatigue. HEENT: No recent visual problems or hearing problems. Denied any sore throat. CARDIOVASCULAR: No orthopnea, PND, no palpitations, no syncope. PULMONARY: No shortness of breath, no cough, no hemoptysis. GASTROINTESTINAL: No diarrhea, no nausea, no vomiting, no abdominal pain. Normoactive bowel sounds. NEUROLOGICAL: No headaches, no weakness, no numbness. HEMATOLOGICAL: Denies any bleeding or petechiae. GENITOURINARY: Denies any burning micturition, frequency, or urgency. MUSCULOSKELETAL/RHEUMATOLOGICAL: Denies any joint pain, swelling, or any muscle pain. ENDOCRINE: Denies any polyuria or polydipsia. Past Medical History Past Medical History: Myocardial Infarction ([place]) History of Any Multi-Drug Resistant Organisms: None Reported Past Surgical History: Appendectomy, Back Surgery, Heart Catheterization With S tent, Hysterectomy Additional Past Surgical History / Comment(s): R oophrectomy Past Psychological History: No Psychological Hx Reported Smoking Status: Current every day smoker Past Alcohol Use History: None Reported Past Drug Use History: None Reported - Past Family History Mother Family Medical History: Unable to Obtain Medications and Allergies Home Medications Medication Instructions Recorded Confirmed Type Meclizine [Antivert] 25 mg PO DAILY PRN 10/04/21 10/04/21 History Allergies Allergy/AdvReac Type Severity Reaction Status Date / Time No Known Allergies Allergy Verified 10/04/21 11:01 Physical Exam Vitals: Vital Signs Temp Pulse Resp BP Pulse Ox 10/04/21 09:56 58 L 19 193/84 99 10/04/21 08:57 96.5 F L 49 L 18 160/83 99 Intake and Output 10/03/21 10/04/21 10/04/21 22:59 06:59 14:59 Other: Weight 40.37 kg -GENERAL: The patient is alert and oriented x3, not in any acute distress. Thin built HEENT: Pupils are round and equally reacting to light. EOMI. No scleral icterus. No conjunctival pallor. Normocephalic, atraumatic. No pharyngeal erythema. No thyromegaly. CARDIOVASCULAR: S1 and S2 present. No murmurs, rubs, or gallops. PULMONARY: Chest is clear to auscultation, no wheezing or crackles. ABDOMEN: Soft, nontender, nondistended, normoactive bowel sounds. No palpable organomegaly. MUSCULOSKELETAL: No joint swelling or deformity. EXTREMITIES: No cyanosis, clubbing, or pedal edema. NEUROLOGICAL: Gross neurological examination did not reveal any focal deficits. SKIN: No rashes. no petechiae. Results CBC & Chem 7: 10/04/21 09:23 10/04/21 09:23 Labs: Abnormal Lab Results - Last 24 Hours (Table) 10/04/21 10/04/21 10/04/21 Range/Units 09:23 09:23 09:23 Lymphocytes # 0.9 L (1.0-4.8) k/uL APTT 21.9 L (22.0-30.0) sec Sodium 134 L (137-145) mmol/L Glucose 122 H (74-99) mg/dL Assessment and Plan Assessment: Acute ST elevation myocardial infarction Nicotine dependence Elevated blood pressure, deep monitoring for possible hypertension History of coronary artery disease with previous stenting Thin built with BMI of 15.8, possible elements of mild to moderate protein- calorie malnutrition Plan: This is a pleasant 61 race old female who presents with STEMI Patient is taken to cardiac cath emergently Follow-up with muffler mechanic recommendation Follow up on echocardiogram consult dietitian Labs and medication were reviewed.. Continue same treatment. Continue with symptomatic treatment. Resume home medication. Monitor lytes and vitals. DVT and GI prophylaxis. Further recommendations as per clinical course of the patient DVT prophylaxis: Subcutaneous heparin GI Prophylaxis: Pepcid
[2021-10-04 16:12] LABS: Chol/HDL Ratio 3.92 Ratio; LDL Cholesterol,Calculated 112.8 mg/dL (0.0-131.0)
--- NOTE | 2021-10-04 16:44 | ECHOF ---
Referral Reason:mi MEASUREMENTS -------- HEIGHT: 160.0 cm WEIGHT: 40.4 kg BP: 184/83 IVSd: 1.4 cm (0.6 - 1.1) LVIDd: 3.8 cm (3.9 - 5.3) LVPWd: 1.4 cm (0.6 - 1.1) EDV(Teich): 63 ml IVSs: 1.6 cm LVIDs: 2.8 cm LVPWs: 1.8 cm %IVS Thck: 13 % ESV(Teich): 29 ml EF(Teich): 54 % %FS: 27 % SV(Teich): 34 ml RVIDd: 3.4 cm (< 3.3) RA Diam: 3.6 cm LALs A4C: 5.3 cm LAAs A4C: 21.8 cm LAESV A-L A4C: 76 ml LAESV MOD A4C: 74 ml LALs A2C: 5.1 cm LAAs A2C: 16.5 cm LAESV A-L A2C: 45 ml LAESV MOD A2C: 42 ml LAESV(A-L): 60 ml LAESV Index (A-L): 43.70 ml/m Ao Diam: 3.2 cm (2.0 - 3.7) LA Diam: 3.2 cm (2.7 - 3.8) AV Cusp: 1.9 cm (1.5 - 2.6) EPSS: 0.6 cm MV E Tutu: 0.71 m/s MV DecT: 252 ms MV Dec [place]: 2.8 m/s MV A Tutu: 1.29 m/s MV E/A Ratio: 0.55 MV PHT: 73 ms AV Vmax: 1.55 m/s AV maxP.58 mmHg TR Vmax: 2.28 m/s TR maxP.86 mmHg RAP: 5.00 mmHg RVSP: 25.86 mmHg MV EF SLOPE: 78.11 mm/s (70 - 150) MV EXCURSION: 20.02 mm (> 18.000) FINDINGS -------- Sinus rhythm. This was a technically adequate study. The left ventricular size is normal. There is moderate concentric left ventricular hypertrophy. O verall left ventricular systolic function is low-normal with, an EF between 50 - 55 %. Basal inferi or LV wall motion is hypokinetic. Basal inferoseptal LV wall motion is hypokinetic. The right ventricle is mildly enlarged. LA is moderately dilated 34-39 ml/m2 The right atrial size is normal. Interatrial and interventricular septum intact. The aortic valve is trileaflet, and appears structurally normal. No aortic stenosis or regurgitation. The mitral valve leaflets are mildly thickened. Moderate mitral regurgitation is present. The tricuspid valve appears structurally normal. Mild tricuspid regurgitation present. Right vent ricular systolic pressure is normal at < 35 mmHg. The right ventricular systolic pressure, as measu red by Doppler, is 25.86mmHg. Trace/mild (physiologic) pulmonic regurgitation. The aortic root size is normal. IVC Not well visulized. There is no pericardial effusion. CONCLUSIONS -------- 1. There is moderate concentric left ventricular hypertrophy. 2. Overall left ventricular systolic function is low-normal with, an EF between 50 - 55 %. 3. Basal inferior LV wall motion is hypokinetic. 4. Basal inferoseptal LV wall motion is hypokinetic. 5. The right ventricle is mildly enlarged. 6. LA is moderately dilated 34-39 ml/m2 7. The aortic valve is trileaflet, and appears structurally normal. No aortic stenosis or regurgitati on. 8. Moderate mitral regurgitation is present. 9. Mild tricuspid regurgitation present. 10. Trace/mild (physiologic) pulmonic regurgitation. FUEL CELL REPAIRER: Tawanna Ashraf RDCS
[2021-10-04] MEDS ORDERED: ACETAMINOPHEN TAB 325 MG TAB PO PRN (19:53)
[2021-10-04] MEDS: ATORVASTATIN 80 MG TAB PO SCH (20:05)
[2021-10-04] MEDS: HEPARIN SODIUM,PORCINE/PF 5,000 UNIT/0.5 ML SYRINGE SQ SCH (20:06)
[2021-10-04] MEDS: FAMOTIDINE 20 MG/2 ML VIAL IV SCH (20:06)
[2021-10-04] MEDS: TICAGRELOR 90 MG TAB PO SCH (20:06)
[2021-10-04] MEDS: METOPROLOL TARTRATE 25 MG TAB PO SCH (20:06)
[2021-10-05 04:16] LABS: Calcium 8.1 mg/dL (8.4-10.2); Potassium 4.3 mmol/L (3.5-5.1)
--- NOTE | 2021-10-05 09:25 | P.PN ---
Subjective Progress Note Date: 10/05/21 PROGRESS NOTE The patient is a 61-year-old male with a history of CAD, chronic tobacco use who presented with an acute myocardial infarction and underwent cardiac catheterization and stenting of the long segment of the RCA. She is doing well this morning, denies any chest discomfort, dizziness or palpitations. She is in sinus mechanism. She has no further arm discomfort. She continues to be on aspirin once a day, Lipitor 80 mg daily, Zestril 5 mg twice a day, metoprolol 25 mg twice a day PHYSICAL EXAMINATION: Blood pressure 138/70 heart rate 58 LUNGS: [Clear to auscultation] HEART: [Regular rate and rhythm, S1, S2. No S3. No systolic murmur] ABDOMEN: [Soft, nontender, no organomegaly] EXTREMETIES: Right radial pulse intact, no edema LAB: BUN 18, creatinine 0.84, troponin 11.5. Echocardiogram with ejection fraction 50-55% IMPRESSION: 1. Status post acute inferolateral wall myocardial infarction and stenting of the RCA 2. Prior stenting of the left circumflex, patent 3. Chronic tobacco use 4. hyperlipidemia PLAN: 1. Decrease dose of beta marcela because of bradycardia 2. Increase physical activity 3. Transfer to telemetry 4. If stable probable discharge tomorrow. Objective - Vital Signs Vital signs: Vital Signs Temp 97.7 F 10/05/21 04:00 Pulse 58 L 10/05/21 07:00 Resp 15 10/05/21 07:00 BP 162/86 10/05/21 07:00 Pulse Ox 91 L 10/05/21 07:00 Intake & Output 10/04/21 10/05/21 10/05/21 18:59 06:59 18:59 Intake Total 695 950 80 Output Total 1350 1125 200 Balance -655 -175 -120 Weight 40.37 kg 41.8 kg Intake: IV 695 950 80 Sodium Chloride 0.9% 1, 545 950 80 000 ml @ 80 mls/hr IV . [id number] [facility] Rx#:[id number] Output: Urine 1350 1125 200 - Labs CBC & Chem 7: 10/04/21 09:23 10/05/21 03:37 Labs: Abnormal Lab Results - Last 24 Hours (Table) 10/04/21 10/04/21 10/04/21 Range/Units 09:23 09:23 09:23 Lymphocytes # 0.9 L (1.0-4.8) k/uL APTT 21.9 L (22.0-30.0) sec Sodium (137-145) mmol/L BUN (7-17) mg/dL Glucose (74-99) mg/dL POC Glucose (mg/dL) (75-99) mg/dL Calcium (8.4-10.2) mg/dL Troponin I (0.000-0.034) ng/mL Triglycerides (0.00-149.00) mg/dL Cholesterol (0.00-200.00) mg/dL VLDL Cholesterol, Calc (5.00-40.00) mg/dL Ur Specific [place] 1.050 H (1.001-1.035) 10/04/21 10/04/21 10/04/21 Range/Units :03 04: 09: Lymphocytes # (1.0-4.8) k/uL APTT (22.0-30.0) sec Sodium 134 L (137-145) mmol/L BUN (7-17) mg/dL Glucose 122 H (74-99) mg/dL POC Glucose (mg/dL) (75-99) mg/dL Calcium (8.4-10.2) mg/dL Troponin I 0.400 H* (0.000-0.034) ng/mL Triglycerides 207.00 H (0.00-149.00) mg/dL Cholesterol 207.00 H (0.00-200.00) mg/dL VLDL Cholesterol, Calc 41.40 H (5.00-40.00) mg/dL Ur Specific [place] (1.001-1.035) 10/04/21 10/04/21 10/04/21 Range/Units 11:46 11:55 15:35 Lymphocytes # (1.0-4.8) k/uL APTT (22.0-30.0) sec Sodium (137-145) mmol/L BUN (7-17) mg/dL Glucose (74-99) mg/dL POC Glucose (mg/dL) 117 H (75-99) mg/dL Calcium (8.4-10.2) mg/dL Troponin I 3.590 H* 11.500 H* (0.000-0.034) ng/mL Triglycerides (0.00-149.00) mg/dL Cholesterol (0.00-200.00) mg/dL VLDL Cholesterol, Calc (5.00-40.00) mg/dL Ur Specific [place] (1.001-1.035) 10/05/21 Range/Units 03:37 Lymphocytes # (1.0-4.8) k/uL APTT (22.0-30.0) sec Sodium 133 L (137-145) mmol/L BUN 18 H (7-17) mg/dL Glucose (74-99) mg/dL POC Glucose (mg/dL) (75-99) mg/dL Calcium 8.1 L (8.4-10.2) mg/dL Troponin I (0.000-0.034) ng/mL Triglycerides (0.00-149.00) mg/dL Cholesterol (0.00-200.00) mg/dL VLDL Cholesterol, Calc (5.00-40.00) mg/dL Ur Specific [place] (1.001-1.035)
[2021-10-05] MEDS: TICAGRELOR 90 MG TAB PO SCH ×2 (09:37→20:29)
[2021-10-05] MEDS: FAMOTIDINE 20 MG/2 ML VIAL IV SCH (09:37)
[2021-10-05] MEDS: lisinopriL 5 MG TAB PO SCH ×2 (09:37→20:29)
[2021-10-05] MEDS: HEPARIN SODIUM,PORCINE/PF 5,000 UNIT/0.5 ML SYRINGE SQ SCH ×2 (09:37→20:28)
[2021-10-05] MEDS: ASPIRIN 81 MG PO SCH (09:37)
--- NOTE | 2021-10-05 15:56 | P.PN ---
Subjective This is a pleasant 61 years old female with past medical history of coronary artery disease and stent placement, she is current cigarette smoker, who presents with bilateral arm pain for the last 2 days, this morning her pain was worse so she decided to come to the hospital. She denies any chest pain or dyspnea, she does not look in distress while sitting in bed. No other specific complaints. She admits to smoking half pack per day and she was counseled to quit. No alcohol or illicit drug 10/05/2021 Patient seen in the ICU, fully awake and oriented, asymptomatic, no arm pain or chest pain or other symptoms. She is status post PCI to the distal RCA, she is currently placed on aspirin and brillinta , and the importance of dual antiplat elet therapy are explained to her. Creatinine 0.8 Ejection fraction 50-55% Objective - Vital Signs Vital signs: Vital Signs Temp 98.1 F 10/05/21 08:00 Pulse 50 L 10/05/21 08:00 Resp 18 10/05/21 08:00 BP 159/72 10/05/21 08:00 Pulse Ox 95 10/05/21 08:00 Intake & Output 10/04/21 10/05/21 10/05/21 18:59 06:59 18:59 Intake Total 695 950 160 Output Total 1350 1125 650 Balance -877 -425 -490 Weight 40.37 kg 41.8 kg Intake: IV 695 950 160 Sodium Chloride 0.9% 1, 545 950 160 000 ml @ 80 mls/hr IV . [id number] ON LICENSE OF [facility] Rx#:[id number] Output: Urine 1350 1125 650 - Exam GENERAL: The patient is alert and oriented x3, not in any acute distress. Well developed, well nourished. HEENT: Pupils are round and equally reacting to light. EOMI. No scleral icterus. No conjunctival pallor. Normocephalic, atraumatic. No pharyngeal erythema. No thyromegaly. CARDIOVASCULAR: S1 and S2 present. No murmurs, rubs, or gallops. PULMONARY: Chest is clear to auscultation, no wheezing or crackles. ABDOMEN: Soft, nontender, nondistended, normoactive bowel sounds. No palpable organomegaly. MUSCULOSKELETAL: No joint swelling or deformity. EXTREMITIES: No cyanosis, clubbing, or pedal edema. NEUROLOGICAL: Gross neurological examination did not reveal any focal deficits. SKIN: No rashes. no petechiae. - Labs CBC & Chem 7: 10/04/21 09:23 10/05/21 03:37 Labs: Abnormal Lab Results - Last 24 Hours (Table) 10/04/21 10/04/21 10/04/21 Range/Units 09:23 09:23 11:55 Sodium (137-145) mmol/L BUN (7-17) mg/dL Calcium (8.4-10.2) mg/dL Troponin I 3.590 H* (0.000-0.034) ng/mL Triglycerides 207.00 H (0.00-149.00) mg/dL Cholesterol 207.00 H (0.00-200.00) mg/dL VLDL Cholesterol, Calc 41.40 H (5.00-40.00) mg/dL Ur Specific [place] 1.050 H (1.001-1.035) 10/04/21 10/05/21 Range/Units 15:35 03:37 Sodium 133 L (137-145) mmol/L BUN 18 H (7-17) mg/dL Calcium 8.1 L (8.4-10.2) mg/dL Troponin I 11.500 H* (0.000-0.034) ng/mL Triglycerides (0.00-149.00) mg/dL Cholesterol (0.00-200.00) mg/dL VLDL Cholesterol, Calc (5.00-40.00) mg/dL Ur Specific [place] (1.001-1.035) Assessment and Plan Assessment: Acute ST elevation myocardial infarction, status post PCI to distal RCA Nicotine dependence Elevated blood pressure, possible hypertension History of coronary artery disease with previous stenting Thin built with BMI of 15.8, possible elements of mild to moderate protein- calorie malnutrition Plan: This is a pleasant 61 race old female who presents with STEMI Continue with aspirin and brillinta Continue with antihypertensive medication including metoprolol Follow-up with full stack software engineer recommendation consult dietitian Labs and medication were reviewed.. Continue same treatment. Continue with symptomatic treatment. Resume home medication. Monitor lytes and vitals. DVT and GI prophylaxis. Further recommendations as per clinical course of the patient DVT prophylaxis: Subcutaneous heparin GI Prophylaxis: Pepcid
[2021-10-05] MEDS: METOPROLOL TARTRATE 25 MG TAB PO SCH (18:43)
[2021-10-05] MEDS: ATORVASTATIN 80 MG TAB PO SCH (20:28)
[2021-10-05] MEDS: METOPROLOL TARTRATE 12.5 MG TAB PO SCH (20:28)
--- NOTE | 2021-10-06 08:42 | P.DS ---
Providers Date of admission: 10/04/21 09:47 Attending physician: Bello Travis Consults: 10/04/21 09:46 Consult Physician Stat Consulting Provider: Maame Manriquez Consult Reason/Comments: stemi Do you want consulting provider notified?: Already Contacted 10/04/21 11:28 Consult Physician Routine Consulting Provider: [facility] Consult Reason/Comments: Post Interventional patient Do you want consulting provider notified?: Already Contacted Primary care physician: Bello Travis Hospital Course: This discharge summary 59-year-old white female who has essentially had enzymatic elevation after having chest pressure. The patient ended up having cardiac catheterization with appropriate stent placement. The patient did quite well and will be discharged once cleared by cardiology. She's pain-free tolerating diet without difficulty and started on empiric treatment for post ID. Patient Condition at Discharge: Stable Plan - Discharge Summary Discharge Rx Participant: Yes New Discharge Prescriptions: New Aspirin 81 mg PO DAILY Ticagrelor [Brilinta] 90 mg PO BID #60 tab Atorvastatin [Lipitor] 80 mg PO HS #30 tab Metoprolol Tartrate [Lopressor] 12.5 mg PO BID #60 tab lisinopriL [Zestril] 5 mg PO BID #60 tab Nitroglycerin Sl Tabs [Nitrostat] 0.4 mg SUBLINGUAL Q5M PRN #50 tab PRN Reason: Chest Pain Continue Meclizine [Antivert] 25 mg PO DAILY PRN PRN Reason: Vertigo Discharge Medication List Meclizine [Antivert] 25 mg PO DAILY PRN 10/04/21 [History] Aspirin 81 mg PO DAILY 10/06/21 [Rx] Atorvastatin [Lipitor] 80 mg PO HS #30 tab 10/06/21 [Rx] Metoprolol Tartrate [Lopressor] 12.5 mg PO BID #60 tab 10/06/21 [Rx] Nitroglycerin Sl Tabs [Nitrostat] 0.4 mg SUBLINGUAL Q5M PRN #50 tab 10/06/21 [Rx] Ticagrelor [Brilinta] 90 mg PO BID #60 tab 10/06/21 [Rx] lisinopriL [Zestril] 5 mg PO BID #60 tab 10/06/21 [Rx] Follow up Appointment(s)/Referral(s): Bello Travis MD [Primary Care Provider] - 1-2 days
[2021-10-06 08:51] VITALS: BP 160/70; PULSE 48; RESP 17; TEMP 97.4
[2021-10-06] MEDS: HEPARIN SODIUM,PORCINE/PF 5,000 UNIT/0.5 ML SYRINGE SQ SCH (08:57)
[2021-10-06] MEDS: lisinopriL 5 MG TAB PO SCH (08:57)
[2021-10-06] MEDS: ASPIRIN 81 MG PO SCH (08:57)
[2021-10-06] MEDS: TICAGRELOR 90 MG TAB PO SCH (08:57)
[2021-10-06] MEDS ORDERED: FAMOTIDINE 20 MG TAB PO SCH (09:00)
[2021-10-06 09:02] LABS: Calcium 8.4 mg/dL (8.4-10.2); Potassium 3.9 mmol/L (3.5-5.1)
[2021-10-06] MEDS: METOPROLOL TARTRATE 12.5 MG TAB PO SCH (09:52)
--- NOTE | 2021-10-06 10:52 | P.PN ---
Subjective Progress Note Date: 10/06/21 HISTORY OF PRESENT ILLNESS: Patient is status post cardiac catheterization with PCI to the RCA. Patient examined this morning at the bedside. Patient denies chest pain or pressure. She denies shortness of breath. Patient's heart rate is currently running in the 40s. Her beta marcela was decreased yesterday artery secondary to bradycardia. Vital signs are stable. Right groin cardiac catheterization site with pulse present. PHYSICAL EXAM: VITAL SIGNS: Reviewed. GENERAL: Well-developed in no acute distress. NECK: Supple. No JVD or thyromegaly LUNGS: Respirations even and unlabored. Lungs essentially clear to auscultation bilaterally. HEART: Regular rate and rhythm. S1 and S2 heard. EXTREMITIES: Normal range of motion. No clubbing or cyanosis. Peripheral pulses intact. No lower extremity edema ASSESSMENT: 1. Status post acute inferolateral wall myocardial infarction and stenting of the RCA 2. Prior stenting of the left circumflex, patent 3. Chronic tobacco use 4. Hyperlipidemia PLAN: Continue current cardiac medications Continue dual antiplatelet therapy with aspirin and Brilinta Discontinue beta marcela secondary to bradycardia with heart rates in the 30s and 40s. Will reassess on an outpatient basis Patient may be discharged home this afternoon She is to follow up outpatient with Dr. Person Nurse practitioner note has been reviewed by physician. Signing provider agrees with the documented findings, assessment, and plan of care. Objective - Vital Signs Vital signs: Vital Signs Temp 97.4 F L 10/06/21 08:05 Pulse 48 L 10/06/21 08:05 Resp 17 10/06/21 08:05 BP 160/70 10/06/21 08:05 Pulse Ox 99 10/06/21 08:05 Intake & Output 10/05/21 10/06/21 10/06/21 18:59 06:59 18:59 Intake Total 160 240 Output Total 650 200 Balance -490 -200 240 Intake: IV 160 Sodium Chloride 0.9% 1, 160 000 ml @ 80 mls/hr IV . [id number] [facility] Rx#:[id number] Oral 240 Output: Urine 650 200 Other: Voiding Method Toilet # Voids 2 1 - Labs CBC & Chem 7: 10/04/21 09:23 10/06/21 08:16 Labs: Abnormal Lab Results - Last 24 Hours (Table) 10/06/21 Range/Units 08:16 Sodium 136 L (137-145) mmol/L BUN 19 H (7-17) mg/dL Glucose 141 H (74-99) mg/dL
[2021-10-06 13:26] VITALS: BMI 16.3
== END 2021-10-06 11:46 | disposition home or self-care (01) | DRG 247 ==
LOC: EC 08:56 → 2SICU 09:47 → 3SCARD 10-05 18:23
PROVIDERS: ADMIT Family Medicine; ATTEND Family Medicine
PROC: 4A023N7 Measurement of Cardiac Sampling and Pressure, Left Heart, Percutaneous Approach (ICD-10-PCS; principal; 2021-10-04 10:15)
PROC: 027036Z Dilation of Coronary Artery, One Artery with Three Drug-eluting Intraluminal Devices, Percutaneous Approach (ICD-10-PCS; principal; 2021-10-04 10:15)
PROC: B2111ZZ Fluoroscopy of Multiple Coronary Arteries using Low Osmolar Contrast (ICD-10-PCS; principal; 2021-10-04 10:15)
DX: I21.19 ST elevation (STEMI) myocardial infarction involving other coronary artery of inferior wall (principal); E44.0 Moderate protein-calorie malnutrition; Z68.1 Body mass index [BMI] 19.9 or less, adult; E78.5 Hyperlipidemia, unspecified; F17.210 Nicotine dependence, cigarettes, uncomplicated; R03.0 Elevated blood-pressure reading, without diagnosis of hypertension; I25.10 Atherosclerotic heart disease of native coronary artery without angina pectoris; I25.2 Old myocardial infarction; Z79.899 Other long term (current) drug therapy; Z90.710 Acquired absence of both cervix and uterus; Z95.5 Presence of coronary angioplasty implant and graft; Z71.3 Dietary counseling and surveillance; Z98.890 Other specified postprocedural states; Z90.721 Acquired absence of ovaries, unilateral; Z90.49 Acquired absence of other specified parts of digestive tract
CPT/HCPCS: 36415; 71045; 80048; 80053; 80061; 81003; 82150; 83605; 83690; 84484; 85025; 85610; 85730; 93005; 93306; 93458; 96361; 96374; 96375; 99291

== ENCOUNTER → 2021-12-13 | Outpatient (CLI) | payer SELFPAY ==
[2021-12-13 19:41] LABS: ALT 28 U/L (8-44); AST 31 U/L (13-35); African American GFR (CKD) 72.6 (60.0-200.0); Albumin 4.5 g/dL (3.8-4.9); Albumin/Globulin Ratio 1.68 (1.60-3.17); Alkaline Phosphatase 82 U/L (41-126); BUN/Creat Ratio 20.95 Ratio (12.00-20.00); Blood Urea Nitrogen 20.3 mg/dL (9.0-27.0); Calcium 9.3 mg/dL (8.7-10.3); Carbon Dioxide 22.1 mmol/L (20.0-27.5); Chloride 102 mmol/L (96-109); Chol/HDL Ratio 2.35 Ratio; Globulin 2.7 g/dL (1.6-3.3); Glucose 107 mg/dL (70-110); LDL Cholesterol,Calculated 62.7 mg/dL (0.0-131.0); Non-African American GFR(CKD) 62.7 (60.0-200.0); Potassium 4.8 mmol/L (3.5-5.5); Sodium 136 mmol/L (135-145); Total Protein 7.2 g/dL (6.2-8.2); VLDL Calculation 16.46 mg/dL (5.00-40.00)
== END | disposition home or self-care (01) ==
LOC: LABWHC1 10:49
PROVIDERS: ATTEND Internal Medicine Interventional Cardiology
DX: E78.2 Mixed hyperlipidemia (principal)
CPT/HCPCS: 36415; 80053; 80061

== ENCOUNTER → 2022-02-03 | Outpatient (CLI) | payer BC ==
--- NOTE | 2022-02-03 12:41 | MM ---
Reason for Exam: Screening (asymptomatic). Last mammogram was performed 10 year(s) and 0 month(s) ago. Patient History: Menarche at age 11. First Full-Term at age 18. Right ovary removed at age 24. Patient used Hormonal Contraceptives for 1 year. 1981, Lumpectomy on the Right side. Benign Excisional Biopsy on the right side. Maternal cousin had breast cancer, age 37. Maternal aunt had breast cancer under age 50. Maternal cousin had breast cancer, age 55. Risk Values: Bessy 5 year model risk: 1.3%. NCI Lifetime model risk: 5.9%. Prior Study Comparison: 06/16/2006 Bilateral Screening Mammogram, [facility]. 06/20/2007 Bilateral Screening Mammogram, [facility]. 02/05/2012 Bilateral Screening Mammogram, [facility]. Tissue Density: There are scattered fibroglandular densities. Findings: Analyzed By CAD. There is no suspicious group of microcalcifications or new suspicious mass in either breast. Benign-appearing calcifications within both breasts. Overall Assessment: Benign, BI-RAD 2 Management: Screening Mammogram of both breasts in 1 year. A clinical breast exam by your physician is recommended on an annual basis and results should be correlated with mammographic findings. Electronically signed and approved by: Jose Jones D.O.
== END | disposition home or self-care (01) ==
LOC: RADMAMWWP 07:05
PROVIDERS: ATTEND Family Medicine
DX: Z12.31 Encounter for screening mammogram for malignant neoplasm of breast (principal); Z80.3 Family history of malignant neoplasm of breast
CPT/HCPCS: 77063; 77067

== ENCOUNTER → 2022-04-23 | Outpatient (CLI) | payer BC ==
[2022-04-23 15:06] LABS: ALT 24 U/L (8-44); AST 29 U/L (13-35); African American GFR (CKD) 81.3 (60.0-200.0); Albumin 4.4 g/dL (3.8-4.9); Albumin/Globulin Ratio 1.67 (1.60-3.17); Alkaline Phosphatase 63 U/L (41-126); BUN/Creat Ratio 24.37 Ratio (12.00-20.00); Blood Urea Nitrogen 21.4 mg/dL (9.0-27.0); Calcium 9.3 mg/dL (8.7-10.3); Carbon Dioxide 24.5 mmol/L (20.0-27.5); Chloride 106 mmol/L (96-109); Chol/HDL Ratio 2.27 Ratio; Globulin 2.6 g/dL (1.6-3.3); Glucose 93 mg/dL (70-110); LDL Cholesterol,Calculated 49.1 mg/dL (0.0-131.0); Non-African American GFR(CKD) 70.1 (60.0-200.0); Potassium 5.1 mmol/L (3.5-5.5); Sodium 140 mmol/L (135-145); VLDL Calculation 15.94 mg/dL (5.00-40.00)
== END | disposition home or self-care (01) ==
LOC: LABWHC1 09:33
PROVIDERS: ATTEND Internal Medicine Interventional Cardiology
DX: I10 Essential (primary) hypertension (principal); E78.2 Mixed hyperlipidemia
CPT/HCPCS: 36415; 80053; 80061

== ENCOUNTER → 2022-07-20 | Outpatient (CLI) | payer BC ==
[2022-07-20 14:50] LABS: HCT 35.1 % (37.2-46.3); HGB 11.1 g/dL (12.0-15.0); MCH 32.8 pg (27.0-32.0); MCHC 31.6 g/dL (32.0-37.0); MCV 103.8 fL (80.0-97.0); Mean Platelet Volume 12.7 fL (9.5-12.2); NRBC Per 100 WBC 0 /100 WBCS (0.0-0.0); Platelet Count 156 X 10*3/uL (140-440); RBC 3.38 X 10*6/uL (4.10-5.20); WBC 5.73 X 10*3/uL (4.50-10.00)
[2022-07-20 15:10] LABS: African American GFR (CKD) 69.4 (60.0-200.0); Anion Gap 14.8 mmol/L (10.00-18.00); Blood Urea Nitrogen 13.1 mg/dL (9.0-27.0); Carbon Dioxide 19.2 mmol/L (20.0-27.5); Non-African American GFR(CKD) 59.9 (60.0-200.0); Potassium 5.3 mmol/L (3.5-5.5)
== END | disposition home or self-care (01) ==
LOC: LABPAT 10:22
PROVIDERS: ATTEND Internal Medicine Interventional Cardiology
DX: Z01.812 Encounter for preprocedural laboratory examination (principal); I25.10 Atherosclerotic heart disease of native coronary artery without angina pectoris
CPT/HCPCS: 36415; 80051; 82565; 84520; 85027

== ENCOUNTER 2022-07-30 05:48 | Day surgery (SDC) | payer BC ==
[2022-07-30] MEDS ORDERED: ALPRAZolam 0.25 MG TAB PO PRN (05:51)
[2022-07-30] MEDS ORDERED: HEPARIN SODIUM,PORCINE 10,000 UNIT in SODIUM CHLORIDE 0.9% 1,000 ML IRRIGATION PRN (05:51)
[2022-07-30] MEDS ORDERED: HEPARIN SODIUM,PORCINE 2,500 UNIT in SODIUM CHLORIDE 0.9% 250 ML IRRIGATION PRN (05:51)
[2022-07-30] MEDS ORDERED: NITROGLYCERIN SL TABS 0.4 MG TAB SUBLINGUAL PRN ×2 (05:51→08:44)
[2022-07-30] MEDS ORDERED: ALPRAZolam 0.5 MG TAB PO PRN (05:51)
[2022-07-30] MEDS ORDERED: SODIUM CHLORIDE 0.9% 1,000 ML in EMPTY BAG 1 BAG IV SCH ×2 (06:00→08:45)
[2022-07-30 06:24] VITALS: RESP 16; TEMP 97.9
[2022-07-30] MEDS ORDERED: SODIUM CHLORIDE 0.9% 1,000 ML IV ONE (06:24)
[2022-07-30] MEDS ORDERED: ATORVASTATIN 80 MG TAB PO ONE (07:00)
[2022-07-30] MEDS ORDERED: ASPIRIN 325 MG TAB PO ONE (07:00)
[2022-07-30] MEDS ORDERED: fentaNYL (PF) 50 MCG/ML 2 ML AMP ONE (07:31)
[2022-07-30] MEDS ORDERED: HEPARIN SODIUM 1,000 UN/ML (10ML VL) ONE (07:31)
[2022-07-30] MEDS ORDERED: fentaNYL (PF) 50 MCG/ML 2 ML AMP IV ONE (07:50)
[2022-07-30] MEDS ORDERED: LIDOCAINE 1% INJ 10MG/ML (5 ML VIAL-PF) SQ ONE (07:54)
[2022-07-30] MEDS: VERAPAMIL SYRINGE (5 MG/10 ML) INTRAARTER ONE ×2 (08:04→08:09)
[2022-07-30] MEDS ORDERED: MIDAZOLAM 2 MG/2 ML VIAL IV ONE (08:07)
[2022-07-30] MEDS ORDERED: HEPARIN SODIUM 1,000 UN/ML (10ML VL) IV ONE (08:08)
[2022-07-30] MEDS ORDERED: VERAPAMIL 2.5 MG/ML 2 ML AMP ONE (08:08)
[2022-07-30] MEDS ORDERED: NITROGLYCERIN 1000MCG/10ML SYRINGE INTRACORON ONE (08:33)
[2022-07-30] MEDS ORDERED: IOPAMIDOL-370 125ML BTL INJ ONE (08:38)
[2022-07-30] MEDS ORDERED: ATROPINE SULFATE 0.1 MG/ML 10ML SYRINGE IV PRN (08:44)
[2022-07-30] MEDS ORDERED: ZOLPIDEM 5 MG TAB PO PRN (08:44)
[2022-07-30] MEDS ORDERED: MAG HYDROX/AL HYDROX/SIMETH 30 ML CUP PO PRN (08:44)
[2022-07-30] MEDS ORDERED: RX INFO: IV CONTRAST WAS GIVEN 1 EACH MISC MISCELLANE PRN (08:44)
--- NOTE | 2022-07-30 08:54 | P.CARDCATH ---
Date of Procedure: 07/30/22 Description of Procedure: Cardiac Catheterization: The patient is a 62-year-old female with known history of hypertension hyperlipidemia history of coronary disease and prior PCI who had a recent abnormal MPI. Recommendations were made regarding cardiac catheterization, the risks and the complications were discussed with the patient who is in full understanding and agreement. Procedure Description: Patient was brought to label stitcher in fasting semi-sedated state after receiving Fentanyl and Benadryl achieiving moderate conscious sedated state. Using Xylocaine Anesthesia and Seldinger technique, a 6-Yemeni sheath was introduced in the right radial artery . Subsequently, selective coronary angiography was performed using a 3.5-Yemeni 5 bend Herminia catheter. Multiple views of the coronary artery including hemiaxial views were obtained. The left Herminia catheter was used to cross the aortic valve and LVEDP was calculated. Following that a 6-Yemeni right 4 bend Herminia catheter was introduced into system and the ostium of the RCA was cannulated. A 0.014 BMW J-wire was positioned in the distal RCA subsequently a 2.5 x 12 mm NC Treck balloon was advanced and inflation up to 12 hira were done, after removing the balloon a 3.0 x 12 mm Xience myra point was deployed at 14 hira, after removing the balloon 3.0 x 15 mm NC Treck was advanced and multiple inflation up to 12 hira were done. After removing the wire images were obtained and revealed stable successful stenting. Following that, catheter and sheath were removed. Hemostasis was obtained with deployment of TR band . There was no immediate complication. Patient was returned to room in stable condition. Of note, the patient received a total of 5000 units of intravenous heparin as well as intra-arterial verapamil. She was continued on Brilinta, she had no chest discomfort or significant EKG changes. Her ACT was monitored. Findings: Left main: This is a short sized vessel, bifurcating into LAD and left circumflex, left main has no high-grade stenosis LAD: This is a large size vessel, reaching to the apex, the LAD has mild disease of 10-20% in the midsegment with no high-grade stenosis Left circumflex: This is a large size vessel nondominant giving rise to a large obtuse marginal branch, the stented segment in the proximal left circumflex is patent with 20% in-stent restenosis, the obtuse marginal branch has mild disease with no high-grade stenosis RCA: This is a large dominant vessel bifurcating into PDA and by mouth the mid stented segment of the RCA has a focal area of stenosis of 85-90% the rest of the vessel has no high-grade stenosis Left Ventriculogram: Not performed Hemodynamics: There was no gradient across the aortic valve , LVEDP was 16-18 mmHg Conclusion: 1. In-stent restenosis in the mid RCA 2. Patent stent of the left circumflex with mild disease 3. Mild mid LAD disease 4. Successful stenting of the mid RCA with reduction of stenosis from 85% to 0% Recommendations: The patient will continue on aspirin and Brilinta without any disruption in addition to aggressive coronary risks modifications. The findings and the recommendations were discussed with the patient and the family and they were in full understanding and agreement. Duration of sedation is 42 minutes.
[2022-07-30 13:29] VITALS: BP 123/65; PULSE 54
[2022-07-30] MEDS ORDERED: ATORVASTATIN 80 MG TAB PO SCH (21:00)
[2022-07-30] MEDS ORDERED: TICAGRELOR 90 MG TAB PO SCH (21:00)
[2022-07-31] MEDS ORDERED: lisinopriL 5 MG TAB PO SCH (09:00)
[2022-07-31] MEDS ORDERED: ASPIRIN 81 MG PO SCH (09:00)
== END 2022-07-30 13:51 | disposition home or self-care (01) ==
LOC: CATHCVL 05:48
PROVIDERS: ATTEND Internal Medicine Interventional Cardiology
DX: I25.10 Atherosclerotic heart disease of native coronary artery without angina pectoris (principal); E78.2 Mixed hyperlipidemia; I25.2 Old myocardial infarction; R00.1 Bradycardia, unspecified; I65.23 Occlusion and stenosis of bilateral carotid arteries; Z95.5 Presence of coronary angioplasty implant and graft; Z79.899 Other long term (current) drug therapy; Z87.891 Personal history of nicotine dependence; Z79.51 Long term (current) use of inhaled steroids; Z79.01 Long term (current) use of anticoagulants; Z79.82 Long term (current) use of aspirin
CPT/HCPCS: 93458; C9600; C1769 ×3; C1887; C1894; C1725 ×2; C1874; J2250; J2001; J3010; J1644; Q9967

== ENCOUNTER → 2022-10-10 | Outpatient (CLI) | payer BC ==
[2022-10-10 16:47] LABS: ALT 28 U/L (8-44); AST 30 U/L (13-35); African American GFR (CKD) 61.9 (60.0-200.0); Albumin 4.4 g/dL (3.8-4.9); Albumin/Globulin Ratio 1.63 (1.60-3.17); Alkaline Phosphatase 76 U/L (41-126); BUN/Creat Ratio 14.36 Ratio (12.00-20.00); Blood Urea Nitrogen 15.8 mg/dL (9.0-27.0); Calcium 9.2 mg/dL (8.7-10.3); Carbon Dioxide 23.7 mmol/L (20.0-27.5); Chloride 105 mmol/L (96-109); Chol/HDL Ratio 2.42 Ratio; Globulin 2.7 g/dL (1.6-3.3); Glucose 103 mg/dL (70-110); LDL Cholesterol,Calculated 57.3 mg/dL (0.0-131.0); Non-African American GFR(CKD) 53.4 (60.0-200.0); Potassium 4.6 mmol/L (3.5-5.5); Sodium 139 mmol/L (135-145); Total Protein 7.1 g/dL (6.2-8.2); VLDL Calculation 18.94 mg/dL (5.00-40.00)
== END | disposition home or self-care (01) ==
LOC: LABWHC1 09:31
PROVIDERS: ATTEND Internal Medicine Interventional Cardiology
DX: E78.2 Mixed hyperlipidemia (principal)
CPT/HCPCS: 36415; 80053; 80061

== ENCOUNTER 2022-11-24 09:57 | Observation (INO) | payer BC ==
[2022-11-24] MEDS ORDERED: ASPIRIN 81 MG PO STA (10:21)
[2022-11-24 10:57] LABS: Basophils % (A) 0 %; Eosinophils # (A) 0.1 k/uL (0-0.7); Eosinophils % (A) 2 %; HCT 36.4 % (34.0-46.0); HGB 12.5 gm/dL (11.4-16.0); Lymphocytes # (A) 0.6 k/uL (1.0-4.8); Lymphocytes % (A) 11 %; MCHC 34.3 g/dL (31.0-37.0); Monocytes # (A) 0.3 k/uL (0-1.0); Monocytes % (A) 6 %; Neutrophils # (A) 4.7 k/uL (1.3-7.7); Neutrophils % (A) 80 %; Platelet Count 148 k/uL (150-450); RBC 3.67 m/uL (3.80-5.40); RDW 13.4 % (11.5-15.5); WBC 5.8 k/uL (3.8-10.6)
[2022-11-24 11:10] VITALS: RESP 16
[2022-11-24 11:21] LABS: Albumin 4.4 g/dL (3.5-5.0); Calcium 9.1 mg/dL (8.4-10.2); Magnesium 1.8 mg/dL (1.6-2.3); Potassium 4.9 mmol/L (3.5-5.1); Total Bilirubin 0.8 mg/dL (0.2-1.3); Total Protein 7.4 g/dL (6.3-8.2)
[2022-11-24 11:22] LABS: INR 0.9 (<1.2); Partial Thromboplastin Time 22.1 sec (22.0-30.0); Prothrombin Time 9.9 sec (9.0-12.0)
--- NOTE | 2022-11-24 11:26 | XR ---
EXAMINATION TYPE: XR chest 2V DATE OF EXAM: 11/24/2022 COMPARISON: 10/04/2021 INDICATION: Chest pain TECHNIQUE: Frontal and lateral views of the chest are obtained. FINDINGS: The heart size is normal. The pulmonary vasculature is normal. The lungs are clear. There is hyperinflation and flattening of diaphragms compatible with COPD. IMPRESSION: 1. No acute pulmonary process. 2. COPD
--- NOTE | 2022-11-24 12:49 | ED ---
Chest Pain HPI - General Chief Complaint: Chest Pain Stated Complaint: Dizzy Time Seen by Provider: 11/24/22 10:07 Source: patient, RN notes reviewed Mode of arrival: ambulatory Limitations: no limitations - History of Present Illness Initial Comments: 62-year-old female presents emergency Department chief complaint of chest discomfort, lightheadedness. Patient states she started feeling lightheaded or dizzy. She states she then developed chest discomfort. Patient states mild pain. Patient does have significant cardiac history including 5 stents last in July of this year. Patient's hoop punch and coiler operator helper is Dr. prem peck. Patient's PCP is Dr. Villegas. Patient does have history of smoking but states that she is not having increasing shortness of breath. - Related Data Home Medications Medication Instructions Recorded Confirmed Metoprolol Tartrate 25 mg PO BID 07/27/22 11/24/22 lisinopriL [Zestril] 5 mg PO DAILY 07/27/22 11/24/22 Acetaminophen Tab [Tylenol Tab] 1,000 mg PO Q6H PRN 11/24/22 11/24/22 Previous Rx's Medication Instructions Recorded Atorvastatin [Lipitor] 80 mg PO HS #30 tab 10/06/21 Ticagrelor [Brilinta] 90 mg PO BID #60 tab 10/06/21 Allergies Allergy/AdvReac Type Severity Reaction Status Date / Time No Known Allergies Allergy Verified 11/24/22 11:53 Review of Systems ROS Statement: Those systems with pertinent positive or pertinent negative responses have been documented in the HPI. ROS Other: All systems not noted in ROS Statement are negative. EKG Findings - EKG Comments: EKG Findings:: EKG performed at 10:12 sinus pericardial rate of 47 MS 141/90 QT/QTC 468/431 - EKG Results: EKG: interpreted by KRISTI Past Medical History Past Medical History: Hypertension, Myocardial Infarction ([place]) Last Myocardial Infarction Date:: 10/04/21 History of Any Multi-Drug Resistant Organisms: None Reported Past Surgical History: Heart Catheterization With Stent Additional Past Surgical History / Comment(s): R oophrectomy Date of Last Stent Placement:: 10/04/21 Past Psychological History: No Psychological Hx Reported Smoking Status: Former smoker Past Alcohol Use History: None Reported Past Drug Use History: None Reported - Past Family History Mother Family Medical History: Unable to Obtain Father Family Medical History: Coronary Artery Disease (CAD) General Exam Limitations: no limitations Course Vital Signs 11/24/22 11/24/22 10:01 11:07 Temperature 97.7 F Pulse Rate 52 L 42 L Respiratory 22 16 Rate Blood Pressure 142/54 126/52 O2 Sat by Pulse 96 98 Oximetry Chest Pain MDM - MDM Was pt. sent in by a medical professional or institution (LIZETTE Kelley, SALES AND SERVICE REPRESENTATIVE, urgent care, hospital, or intermediate...) When possible be specific @ -No Did you speak to anyone other than the patient for history (EMS, parent, family, police, friend...)? What history was obtained from this source @ -No Did you review nursing and triage notes (agree or disagree)? Why? @ -I reviewed and agree with nursing and triage notes Were old charts reviewed (outside hosp., previous admission, EMS record, old EKG, old radiological studies, urgent care reports/EKG's, intermediate records)? Report findings @ -Review prior EKGs Differential Diagnosis (chest pain, altered mental status, abdominal pain women, abdominal pain men, vaginal bleeding, weakness, fever, dyspnea, syncope, headache, dizziness, GI bleed, back pain, seizure, CVA, palpatations, mental health, musculoskeletal)? @ -Differential Chest Pain: Stable Angina, Unstable Angina, STEMI, NSTEMI Aortic Dissection, Pneumothorax, Musculoskeletal, Esophageal Spasm GERD, Cholecystitis, Pancreatitis, Zoster, this is not meant to be an all-inclusive list. le EKG interpreted by me (3pts min.). @ -As above X-rays interpreted by me (1pt min.). @ -Chest x-ray shows no acute infiltrate or pneumothorax CT interpreted by me (1pt min.). @ -None done U/S interpreted by me (1pt. min.). @ -None done What testing was considered but not performed or refused? (CT, X-rays, U/S, labs)? Why? @ -None What meds were considered but not given or refused? Why? @ -None Did you discuss the management of the patient with other professionals (professionals i.e. LIZETTE Kelley, SALES AND SERVICE REPRESENTATIVE, lab, RT, psych nurse, social insurance adviser, sprayer automatic spray machine, teacher, biological technical officer, test case developer)? Give summary @ -[facility] for admission with cardiology consult and repeat troponins Was smoking cessation discussed for >3mins.? @ -No Was critical care preformed (if so, how long)? @ -No Were there social determinants of health that impacted care today? How? (Homelessness, low income, unemployed, alcoholism, drug addiction, transportation, low edu. Level, literacy, decrease access to med. care, [facility], rehab)? @ -no Was there de-escalation of care discussed even if they declined (Discuss DNR or withdrawal of care, Hospice)? DNR status @ -No What co-morbidities impacted this encounter? (DM, HTN, Smoking, COPD, CAD, Cancer, CVA, ARF, Chemo, Hep., AIDS, mental health diagnosis, sleep apnea, morbid obesity)? @ -CAD Was patient admitted / discharged? Hospital course, mention meds given and route, prescriptions, significant lab abnormalities, going to OR and other pertinent info. @ -Admitted patient has significant cardiac history patient went of chest pain, lightheadedness. Patient will have cardiac observation and canals evaluation Undiagnosed new problem with uncertain prognosis? @ -No Drug Therapy requiring intensive monitoring for toxicity (Heparin, Nitro, I nsulin, Cardizem)? @ -No Were any procedures done? @ -No Diagnosis/symptom? @ -Chest pain Acute, or Chronic, or Acute on Chronic? @ -Acute Uncomplicated (without systemic symptoms) or Complicated (systemic symptoms)? @ -uncomplicated Side effects of treatment? @ -No Exacerbation, Progression, or Severe Exacerbation? @ -No Poses a threat to life or bodily function? How? (Chest pain, USA, HI, pneumonia, PE, COPD, DKA, ARF, appy, cholecystitis, CVA, Diverticulitis, Homicidal, Suicidal, threat to staff... and all critical care pts) @ -yes cardiac arrest risk Disposition Clinical Impression: Chest pain Disposition: ADMITTED IP TO THIS HOSP Condition: Fair Referrals: Dayron Villegas MD [Primary Care Provider] - 1-2 days Time of Disposition: 12:11
[2022-11-24] MEDS ORDERED: NITROGLYCERIN SL TABS 0.4 MG TAB SUBLINGUAL PRN (12:54)
--- NOTE | 2022-11-24 13:44 | P.HPIM ---
History of Present Illness This is a pleasant 62 years old female with past medical history of hypertension, coronary artery disease status post multiple stents as she describes Presents because of chest pain. Her chest pain started this morning, and smiled about 3/10 in severity, central, nonradiating, no relieving or precipitating factors, nonspecific in character She has history of multiple stents last one was last July 2022 and her pediatric physician assistant Dr. Manriquez. Patient states she was taking her aspirin and Brilinta regularly and as she supposed to and that she took her doses of these 2 medications this morning. She confirmed to me she is on aspirin 81 mg at home Patient denies any other associated symptoms. No dyspnea or coughing. No GI, urinary or neurological symptoms. Earlier this morning she had lightheadedness but is resolved now Vital showing mild bradycardia with heart rate 52 and 42. Patient is afebrile. Labs are reviewed she has unremarkable CBC, INR, BMP, liver enzymes. Troponin is negative 0.012. ProBNP is 401. Chest x-ray: No acute process, COPD in emergency room she was given aspirin 2431 Review of Systems Review of systems CONSTITUTIONAL: No fever, no malaise, no fatigue. HEENT: No recent visual problems or hearing problems. Denied any sore throat. CARDIOVASCULAR: No orthopnea, PND, no palpitations, no syncope. PULMONARY: No shortness of breath, no cough, no hemoptysis. GASTROINTESTINAL: No diarrhea, no nausea, no vomiting, no abdominal pain. Normoactive bowel sounds. NEUROLOGICAL: No headaches, no weakness, no numbness. HEMATOLOGICAL: Denies any bleeding or petechiae. GENITOURINARY: Denies any burning micturition, frequency, or urgency. MUSCULOSKELETAL/RHEUMATOLOGICAL: Denies any joint pain, swelling, or any muscle pain. ENDOCRINE: Denies any polyuria or polydipsia. Past Medical History Past Medical History: Hypertension, Myocardial Infarction ([place]) Last Myocardial Infarction Date:: 10/04/21 History of Any Multi-Drug Resistant Organisms: None Reported Past Surgical History: Heart Catheterization With Stent Additional Past Surgical History / Comment(s): R oophrectomy Date of Last Stent Placement:: 10/04/21 Past Psychological History: No Psychological Hx Reported Smoking Status: Former smoker Past Alcohol Use History: None Reported Past Drug Use History: None Reported - Past Family History Mother Family Medical History: Unable to Obtain Father Family Medical History: Coronary Artery Disease (CAD) Medications and Allergies Home Medications Medication Instructions Recorded Confirmed Type Atorvastatin [Lipitor] 80 mg PO HS #30 tab 10/06/21 11/24/22 Rx Ticagrelor [Brilinta] 90 mg PO BID #60 tab 10/06/21 11/24/22 Rx Metoprolol Tartrate 25 mg PO BID 07/27/22 11/24/22 History lisinopriL [Zestril] 5 mg PO DAILY 07/27/22 11/24/22 History Acetaminophen Tab [Tylenol Tab] 1,000 mg PO Q6H PRN 11/24/22 11/24/22 History Allergies Allergy/AdvReac Type Severity Reaction Status Date / Time No Known Allergies Allergy Verified 11/24/22 11:53 Physical Exam Vitals: Vital Signs Temp Pulse Resp BP Pulse Ox 11/24/22 11:07 42 L 16 126/52 98 11/24/22 10:01 97.7 F 52 L 22 142/54 96 Intake and Output 11/23/22 11/24/22 11/24/22 22:59 06:59 14:59 Other: Weight 45.359 kg GENERAL: The patient is alert and oriented x3, not in any acute distress. Well developed, well nourished. HEENT: Pupils are round and equally reacting to light. EOMI. No scleral icterus. No conjunctival pallor. Normocephalic, atraumatic. No pharyngeal erythema. No thyromegaly. CARDIOVASCULAR: S1 and S2 present. No murmurs, rubs, or gallops. PULMONARY: Chest is clear to auscultation, no wheezing or crackles. ABDOMEN: Soft, nontender, nondistended, normoactive bowel sounds. No palpable organomegaly. MUSCULOSKELETAL: No joint swelling or deformity. EXTREMITIES: No cyanosis, clubbing, or pedal edema. NEUROLOGICAL: Gross neurological examination did not reveal any focal deficits. SKIN: No rashes. no petechiae. Results CBC & Chem 7: 11/24/22 10:42 11/24/22 10:42 Labs: Abnormal Lab Results - Last 24 Hours (Table) 11/24/22 11/24/22 Range/Units 10:42 10:42 RBC 3.67 L (3.80-5.40) m/uL Plt Count 148 L (150-450) k/uL Lymphocytes # 0.6 L (1.0-4.8) k/uL Sodium 135 L (137-145) mmol/L BUN 21 H (7-17) mg/dL Glucose 102 H (74-99) mg/dL AST 37 H (14-36) U/L Assessment and Plan Assessment: Chest pain, rule out cardiac causes History of coronary artery disease status post stent Symptomatic bradycardia secondary to medication effect Hypertension Hyperlipidemia Plan: we'll do serial troponin Continue with antiplatelet therapy Cardiology consult Check TSH Hold metoprolol for bradycardia. Continue with lisinopril Labs and medication were reviewed.. Continue same treatment. Continue with symptomatic treatment. Resume home medication. Monitor labs and vitals. DVT and GI prophylaxis. Further recommendations as per clinical course of the patient DVT prophylaxis: Subcutaneous heparin GI Prophylaxis: Pepcid PT/OT: Pending Prognosis is guarded
[2022-11-24] MEDS ORDERED: FAMOTIDINE 20 MG/2 ML VIAL IV SCH (21:00)
[2022-11-24] MEDS ORDERED: ATORVASTATIN 80 MG TAB PO SCH (21:00)
[2022-11-24] MEDS: HEPARIN SODIUM,PORCINE/PF 5,000 UNIT/0.5 ML SYRINGE SQ SCH (21:35)
[2022-11-24] MEDS: TICAGRELOR 90 MG TAB PO SCH (21:43)
[2022-11-25 08:19] VITALS: BP 152/74; PULSE 65; TEMP 98.2
[2022-11-25] MEDS ORDERED: ASPIRIN 325 MG TAB PO SCH (09:00)
[2022-11-25] MEDS ORDERED: ASPIRIN 81 MG PO SCH (09:00)
[2022-11-25] MEDS ORDERED: lisinopriL 5 MG TAB PO SCH (09:00)
[2022-11-25] MEDS ORDERED: METOPROLOL TARTRATE 12.5 MG TAB PO SCH (09:00)
[2022-11-25] MEDS: TICAGRELOR 90 MG TAB PO SCH (09:12)
[2022-11-25] MEDS: HEPARIN SODIUM,PORCINE/PF 5,000 UNIT/0.5 ML SYRINGE SQ SCH (09:13)
[2022-11-25 09:18] LABS: Chol/HDL Ratio 2.51 Ratio; LDL Cholesterol,Calculated 67.5 mg/dL (0.0-131.0); VLDL Calculation 13.22 mg/dL (5.00-40.00)
--- NOTE | 2022-11-25 17:01 | CONS ---
CONSULTATION HISTORY OF PRESENT ILLNESS: This is a 62-year-old lady with a history of hypertension, hyperlipidemia, and CAD, who underwent a recent cardiac catheterization in July of this year by Dr. Manriquez. The cardiac catheterization was performed in July of 2022, and at that time, there was an in-stent restenosis in the mid RCA, and this was dilated with excellent result. The circumflex stent was patent, and LAD has mild disease. Procedure was performed on July 30, 2022. She has done well since then. She has no major symptoms. However, she continues to smoke on and off and vapes tobacco. She came into the hospital because she felt a little lightheaded. On arrival, her EKG suggested sinus bradycardia in the low 50s. She has not had any symptoms of recurrence. She did not describe any chest discomfort to suggest angina. She had some sharp pains. She is comfortable resting. Three sets of troponins are normal. Her main complaint was lightness and dizziness, and she notices this 2 hours after taking the metoprolol. PAST MEDICAL HISTORY: CAD with a prior history of multivessel PCI. Last one was the restenotic lesion in the mid RCA addressed by Dr. Manriquez. Prior to that, she had stenting in September of 2021, and also, prior to that, she had a circumflex stenting in 2008. MEDICATIONS AT HOME: Include: 1. Brilinta. 2. Aspirin. 3. Lisinopril. 4. Metoprolol. 5. Atorvastatin 80 mg daily. PHYSICAL EXAMINATION: VITAL SIGNS: Blood pressure is 118/70, pulse rate is about 64 per minute. HEENT: Unremarkable. Fundus was not examined by me. NECK: Supple. No JVD. I do not hear a carotid bruit. HEART: Reveals S1 and S2 heard normally. LUNGS: Reveal diminished air entry. ABDOMEN: Soft and nontender. LOWER EXTREMITIES: Reveal normal pulses. No edema. CENTRAL NERVOUS SYSTEM: Normal. DIAGNOSTIC STUDIES: EKG revealed sinus bradycardia, poor R-wave progression, prominent T waves, no acute changes. IMPRESSION: 1. Lightheadedness, probably related to some bradycardia secondary to beta-marcela. 2. Atypical chest pain. 3. Coronary artery disease with multivessel percutaneous coronary intervention. Recent intervention was in July 2022. 4. Hypertension. 5. Hyperlipidemia. RECOMMENDATIONS: The patient's symptoms do not suggest acute ischemic syndrome. I am recommending that we decrease the dose of metoprolol tartrate to 12.5 mg in the morning only. Continue statin, aspirin, Brilinta, and other medications. Increase the activity, and she can be discharged and see Dr. Manriquez in 2 weeks. I discussed my thoughts in detail with the patient. Thank you very much for the consult. TESS / MUSAN: [id number] /
[2022-11-25] MEDS ORDERED: FAMOTIDINE 20 MG TAB PO SCH (21:00)
--- NOTE | 2022-11-26 06:48 | P.DS ---
Providers Date of admission: 11/24/22 12:20 Expected date of discharge: 11/25/22 Attending physician: Vitaly Dawson MD Consults: 11/24/22 12:54 Consult Physician Urgent Consulting Provider: Maame Manriquez Consult Reason/Comments: chest pain Do you want consulting provider notified?: Yes Primary care physician: Dayron Villegas Hospital Course: Final diagnosis Chest pain, ruled out cardiac causes History of coronary artery disease status post stent Symptomatic bradycardia secondary to medication effect Hypertension Hyperlipidemia Discharge disposition Patient is being discharged in a stable condition with guarded prognosis to home. Patient will follow-up with Dr. Villegas in the outpatient setting upon discharge. Patient is to continue with lower dose metoprolol and outpatient follow-up with cardiology as scheduled. Total time taken is greater than 35 minutes. Hospital course This is a 62-year-old female who was recently admitted with chest pain and being closely monitored. Patient was found to have some bradycardia and does take metoprolol. Cardiology evaluated the patient with adjustments to medications and has been cleared for outpatient follow-up. Patient reports chest pain has improved. Please refer to cardiology no for further HPI. Currently no reports of chest pain, shortness of breath, or palpitations. Patient is afebrile. No reports of nausea or vomiting and patient is tolerating diet. Patient will be discharged home today. Physical exam: Gen: This is a 62-year-old female who is awake, alert and oriented 3, thin built, elderly appearing HEENT: Head is atraumatic, normocephalic. Pupils equal, round. Sclerae is anicteric. NECK: Supple. No JVD. No lymphadenopathy. No thyromegaly. LUNGS: Clear to auscultation. No wheezes or rhonchi. No intercostal retractions. HEART: Regular rate and rhythm. No murmur. ABDOMEN: Soft. Bowel sounds are present. No masses. No tenderness. EXTREMITIES: No pedal edema. No calf tenderness. NEUROLOGICAL: Patient is awake, alert and oriented x3. Cranial nerves 2 through 12 are grossly intact. Please refer to medication reconciliation sheet for a list of medications. The impression and plan of care has been dictated by Catherine Dominique, Nurse Practitioner as directed. Dr. Cristiana MD I have performed a history and examination and MDM of this patient, discussed the same with the dictator, and agree with the dictator's assessment and plan as written ,documented as a scribe. Based on total visit time, I have performed more than 50% of the visit. Patient Condition at Discharge: Good Plan - Discharge Summary New Discharge Prescriptions: New Aspirin 81 mg PO DAILY #30 tab Metoprolol Tartrate [Lopressor] 12.5 mg PO DAILY 30 Days #30 tab Nitroglycerin Sl Tabs [Nitrostat] 0.4 mg SUBLINGUAL Q5M PRN #20 tab PRN Reason: Chest Pain Famotidine [Pepcid] 20 mg PO HS #30 tab Continue Ticagrelor [Brilinta] 90 mg PO BID #60 tab Atorvastatin [Lipitor] 80 mg PO HS #30 tab lisinopriL [Zestril] 5 mg PO DAILY Acetaminophen Tab [Tylenol] 1,000 mg PO Q6H PRN PRN Reason: Pain Discontinued Metoprolol Tartrate 25 mg PO BID Discharge Medication List Atorvastatin [Lipitor] 80 mg PO HS #30 tab 10/06/21 [Rx] Ticagrelor [Brilinta] 90 mg PO BID #60 tab 10/06/21 [Rx] lisinopriL [Zestril] 5 mg PO DAILY 07/27/22 [History] Acetaminophen Tab [Tylenol] 1,000 mg PO Q6H PRN 11/24/22 [History] Aspirin 81 mg PO DAILY #30 tab 11/25/22 [Rx] Famotidine [Pepcid] 20 mg PO HS #30 tab 11/25/22 [Rx] Metoprolol Tartrate [Lopressor] 12.5 mg PO DAILY 30 Days #30 tab 11/25/22 [Rx] Nitroglycerin Sl Tabs [Nitrostat] 0.4 mg SUBLINGUAL Q5M PRN #20 tab 11/25/22 [Rx] Follow up Appointment(s)/Referral(s): Dayron Villegas MD [Primary Care Provider] - 1-2 days Maame Manriquez MD [STAFF PHYSICIAN] - 12/09/22 4:15 pm Patient Instructions/Handouts: Chest Pain (DC) Activity/Diet/Wound Care/Special Instructions: Activity Limited until follow-up Follow-up with primary care provider discharge Follow-up cardiology outpatient in one week Continue taking medications as prescribed Discharge Disposition: HOME SELF-CARE
== END 2022-11-25 13:15 | disposition home or self-care (01) ==
LOC: EC 09:57 → 6NMEDSUR 12:20
PROVIDERS: ADMIT Internal Medicine; ATTEND Internal Medicine
DX: R07.89 Other chest pain (principal); J44.9 Chronic obstructive pulmonary disease, unspecified; I25.2 Old myocardial infarction; R00.1 Bradycardia, unspecified; T44.7X5A Adverse effect of beta-adrenoreceptor antagonists, initial encounter; I25.10 Atherosclerotic heart disease of native coronary artery without angina pectoris; E78.5 Hyperlipidemia, unspecified; I10 Essential (primary) hypertension; F17.290 Nicotine dependence, other tobacco product, uncomplicated; Z95.5 Presence of coronary angioplasty implant and graft; Z79.899 Other long term (current) drug therapy; Z79.02 Long term (current) use of antithrombotics/antiplatelets; Z82.49 Family history of ischemic heart disease and other diseases of the circulatory system; Z79.82 Long term (current) use of aspirin
CPT/HCPCS: 36415; 71046; 80053; 80061; 83735; 83880; 84443; 84484; 85025; 85610; 85730; 93005; 94760; 96372; 96374; 99285

== ENCOUNTER 2023-01-18 12:49 | Emergency (ER) | payer BC ==
[2023-01-18 13:26] LABS: Basophils % (A) 1 %; Eosinophils # (A) 0.1 k/uL (0-0.7); Eosinophils % (A) 3 %; HCT 35.5 % (34.0-46.0); Lymphocytes # (A) 0.6 k/uL (1.0-4.8); Lymphocytes % (A) 17 %; MCH 34.5 pg (25.0-35.0); MCHC 33.8 g/dL (31.0-37.0); MCV 102.1 fL (80.0-100.0); Macrocytosis Slight; Mean Platelet Volume 9.8; Monocytes # (A) 0.2 k/uL (0-1.0); Monocytes % (A) 6 %; Neutrophils # (A) 2.4 k/uL (1.3-7.7); Neutrophils % (A) 71 %; Platelet Count 119 k/uL (150-450); RBC 3.48 m/uL (3.80-5.40); RDW 12.9 % (11.5-15.5); WBC 3.4 k/uL (3.8-10.6)
[2023-01-18 13:38] LABS: ALT 32 U/L (4-34); AST 42 U/L (14-36); African American GFR (CKD) 82 (>60 ml/min/1.73 sqM); Albumin 4.4 g/dL (3.5-5.0); Alkaline Phosphatase 89 U/L (38-126); Anion Gap 8 mmol/L; Blood Urea Nitrogen 18 mg/dL (7-17); Calcium 9.3 mg/dL (8.4-10.2); Carbon Dioxide 25 mmol/L (22-30); Chloride 104 mmol/L (98-107); Glucose 101 mg/dL (74-99); Magnesium 1.8 mg/dL (1.6-2.3); Non-African American GFR(CKD) 71 (>60 ml/min/1.73 sqM); Potassium 4.5 mmol/L (3.5-5.1); Sodium 137 mmol/L (137-145); Total Bilirubin 0.7 mg/dL (0.2-1.3); Total Protein 7.5 g/dL (6.3-8.2)
[2023-01-18 13:52] VITALS: RESP 18
[2023-01-18 13:52] LABS: INR 0.9 (<1.2); Prothrombin Time 9.7 sec (9.0-12.0)
[2023-01-18 13:53] LABS: Partial Thromboplastin Time 21.9 sec (22.0-30.0)
--- NOTE | 2023-01-18 14:27 | ED ---
Chest Pain HPI - General Chief Complaint: Chest Pain Stated Complaint: Sent by Esme Butt pain Time Seen by Provider: 01/18/23 12:55 Source: patient Mode of arrival: ambulatory Limitations: no limitations - History of Present Illness Initial Comments: 62-year-old female sent into the emergency department by Dr. Villegas. Patient went into his office and was complaining of left shoulder pain. She did have an area overlying redness and therefore he was concerned for possible shingles. The patient does have several risk factors for heart and vascular disease and therefore he did recommend that she should be fully evaluated. The pain is reproducible upon palpation and movement. Denies any anterior chest pain. No shortness of breath. No numbness, tingling or weakness in her extremities. No other alleviating, precipitating modifying factors - Related Data Home Medications Medication Instructions Recorded Confirmed lisinopriL [Zestril] 5 mg PO DAILY 07/27/22 11/24/22 Acetaminophen Tab [Tylenol] 1,000 mg PO Q6H PRN 11/24/22 11/24/22 Previous Rx's Medication Instructions Recorded Atorvastatin [Lipitor] 80 mg PO HS #30 tab 10/06/21 Ticagrelor [Brilinta] 90 mg PO BID #60 tab 10/06/21 Aspirin 81 mg PO DAILY #30 tab 11/25/22 Famotidine [Pepcid] 20 mg PO HS #30 tab 11/25/22 Metoprolol Tartrate [Lopressor] 12.5 mg PO DAILY 30 Days #30 tab 11/25/22 Nitroglycerin Sl Tabs [Nitrostat] 0.4 mg SUBLINGUAL Q5M PRN #20 tab 11/25/22 valACYclovir HCL [Valacyclovir] 1,000 mg PO TID #21 tab 01/18/23 Allergies Allergy/AdvReac Type Severity Reaction Status Date / Time No Known Allergies Allergy Verified 01/18/23 12:54 Review of Systems ROS Statement: Those systems with pertinent positive or pertinent negative responses have been documented in the HPI. ROS Other: All systems not noted in ROS Statement are negative. Past Medical History Past Medical History: Hypertension, Myocardial Infarction ([place]) Last Myocardial Infarction Date:: 10/04/21 History of Any Multi-Drug Resistant Organisms: None Reported Past Surgical History: Heart Catheterization With Stent Additional Past Surgical History / Comment(s): R oophrectomy Past Anesthesia/Blood Transfusion Reactions: No Reported Reaction Date of Last Stent Placement:: 10/04/21 Past Psychological History: No Psychological Hx Reported Smoking Status: Former smoker Past Alcohol Use History: None Reported Past Drug Use History: None Reported - Past Family History Mother Family Medical History: Unable to Obtain Father Family Medical History: Coronary Artery Disease (CAD) General Exam Limitations: no limitations General appearance: alert, in no apparent distress Head exam: Present: atraumatic, normocephalic, normal inspection Eye exam: Present: normal appearance, PERRL, EOMI. Absent: scleral icterus, conjunctival injection, periorbital swelling ENT exam: Present: normal exam, mucous membranes moist Neck exam: Present: normal inspection. Absent: tenderness, meningismus, lymphadenopathy Respiratory exam: Present: normal lung sounds bilaterally, chest wall tenderness (left area of redness over the shoulder blade. No vesicles). Absent: respiratory distress, wheezes, rales, rhonchi, stridor Cardiovascular Exam: Present: regular rate, normal rhythm, normal heart sounds. Absent: systolic murmur, diastolic murmur, rubs, gallop, clicks GI/Abdominal exam: Present: soft, normal bowel sounds. Absent: distended, tenderness, guarding, rebound, rigid Extremities exam: Present: normal inspection, full ROM, normal capillary refill. Absent: tenderness, pedal edema, joint swelling, calf tenderness Back exam: Present: normal inspection Neurological exam: Present: alert, oriented X3, CN II-XII intact Psychiatric exam: Present: normal affect, normal mood Skin exam: Present: warm, dry, intact, normal color. Absent: rash Course Vital Signs 01/18/23 01/18/23 01/18/23 12:51 13:46 16:27 Temperature 98.4 F 97.8 F Pulse Rate 95 71 96 Respiratory 20 18 18 Rate Blood Pressure 120/70 129/57 132/78 O2 Sat by Pulse 100 99 96 Oximetry Chest Pain MDM - MDM Was pt. sent in by a medical professional or institution (, PA, RIDE MECHANIC, urgent care, hospital, or penitentiary...) When possible be specific @ -Dr. Villegas send the patient in for cardiac eval Did you speak to anyone other than the patient for history (EMS, parent, family, police, friend...)? What history was obtained from this source @ -Dr. Villegas Did you review nursing and triage notes (agree or disagree)? Why? @ -I reviewed and agree with nursing and triage notes Were old charts reviewed (outside hosp., previous admission, EMS record, old EKG, old radiological studies, urgent care reports/EKG's, penitentiary records)? Report findings @ -No old charts were reviewed Differential Diagnosis (chest pain, altered mental status, abdominal pain women, abdominal pain men, vaginal bleeding, weakness, fever, dyspnea, syncope, headache, dizziness, GI bleed, back pain, seizure, CVA, palpatations, mental health, musculoskeletal)? @ -Differential Chest Pain: Stable Angina, Unstable Angina, STEMI, NSTEMI Aortic Dissection, Pneumothorax, Musculoskeletal, Esophageal Spasm GERD, Cholecystitis, Pancreatitis, Zoster, this is not meant to be an all-inclusive list. EKG interpreted by me (3pts min.). @ -Yes and demonstrates sinus rhythm with a rate of 77. NV interval 147. QRS 80. QTC of 416. No acute ST segment elevations or depressions X-rays interpreted by me (1pt min.). @ -None done CT interpreted by me (1pt min.). @ -Yes and demonstrates no acute process U/S interpreted by me (1pt. min.). @ -None done What testing was considered but not performed or refused? (CT, X-rays, U/S, labs)? Why? @ -None What meds were considered but not given or refused? Why? @ -Pain meds were offered however patient refused Did you discuss the management of the patient with other professionals (professionals i.e. , PA, RIDE MECHANIC, lab, RT, psych nurse, executive secretary social welfare, manual lathe machinist, teacher, correction officer reformatory, porter sample case)? Give summary @ -No Was smoking cessation discussed for >3mins.? @ -No Was critical care preformed (if so, how long)? @ -No Were there social determinants of health that impacted care today? How? (Homelessness, low income, unemployed, alcoholism, drug addiction, transportation, low edu. Level, literacy, decrease access to med. care, fdc, rehab)? @ -No Was there de-escalation of care discussed even if they declined (Discuss DNR or withdrawal of care, Hospice)? DNR status @ -No What co-morbidities impacted this encounter? (DM, HTN, Smoking, COPD, CAD, Cancer, CVA, ARF, Chemo, Hep., AIDS, mental health diagnosis, sleep apnea, morbid obesity)? @ -Hypertension, nicotine abuse Was patient admitted / discharged? Hospital course, mention meds given and route, prescriptions, significant lab abnormalities, going to OR and other pertinent info. @ -Upon arrival patient's placed into room 21. A thorough history and physical exam was performed. IV access is established lavatory scissor conducted. D- dimer is elevated at 1.6. I did perform a CTA of the chest which does not d emonstrate any signs of dissection. No pneumothorax. No PE. Results are discussed with the patient. She does not go home at this time. I did provide her with a prescription for valacyclovir. Informed her should her rash beginning the blister that she needs to start taking the antiviral. Follow up with her primary care doctor. She does have a stress test on Wednesday. Return for any new or worsening symptoms. Patient agreeable to the plan and was discharged in stable condition Undiagnosed new problem with uncertain prognosis? @ -Yes Drug Therapy requiring intensive monitoring for toxicity (Heparin, Nitro, Insulin, Cardizem)? @ -No Were any procedures done? @ -No Diagnosis/symptom? @ -Acute left-sided scapular pain Acute, or Chronic, or Acute on Chronic? @ -Acute Uncomplicated (without systemic symptoms) or Complicated (systemic symptoms)? @ -Complicated Side effects of treatment? @ -No Exacerbation, Progression, or Severe Exacerbation? @ -No Poses a threat to life or bodily function? How? (Chest pain, [place], [place], pneumonia, PE, COPD, DKA, ARF, appy, cholecystitis, CVA, Diverticulitis, Homicidal, Suicidal, threat to staff... and all critical care pts) @ -yes patient presents with chest pain Disposition Clinical Impression: Back pain Disposition: HOME SELF-CARE Condition: Stable Instructions (If sedation given, give patient instructions): Back Pain (ED) Additional Instructions: If your rash becomes blistery, please start taking the medications I prescribed. Follow-up with your doctor and have your stress test completed on Wednesday. Return for any new or worsening symptoms Prescriptions: valACYclovir HCL [Valacyclovir] 1,000 mg PO TID #21 tab Is patient prescribed a controlled substance at d/c from ED?: No Referrals: Dayron Villegas MD [Primary Care Provider] - 1-2 days Time of Disposition: 16:15
--- NOTE | 2023-01-18 14:44 | CT ---
EXAMINATION TYPE: CT chest angio for PE CT DLP: 188.3 mGycm, Automated exposure control for dose reduction was used. DATE OF EXAM: 01/18/2023 2:20 PM COMPARISON: Chest radiograph from same day. . CLINICAL INDICATION:Female, 62 years old with history of chest pain; TECHNIQUE/CONTRAST: CTA scan of the thorax is performed without and with IV Contrast, patient injected with 100 ml mL of Isovue 370, pulmonary embolism protocol. MIP images are created and reviewed these are created on a separate workstation.. FINDINGS: Pulmonary Artery: There is no evidence for a filling defect within the pulmonary vasculature to sugge st acute pulmonary embolism. The pulmonary artery is of normal size. Lungs/Pleura: No evidence of focal consolidation, pleural effusion or pneumothorax. Centrilobular emp hysema changes throughout the lungs. Airway: Large airways are patent. Heart: Heart is within normal limits for size. Atherosclerosis of the coronary arteries. Vasculature: No evidence of aortic aneurysm. Mediastinum: No gross evidence of adenopathy. Musculoskeletal: No acute osseous abnormalities Soft Tissues: Unremarkable. Lower neck: No significant findings. Upper Abdomen: No significant findings. IMPRESSION: 1. No evidence of pulmonary embolism. 2. Moderate to severe centrilobular emphysema changes. Consider low-dose lung cancer screening yearl y. 3. Coronary artery atherosclerosis.
[2023-01-18 16:29] VITALS: BP 132/78; PULSE 96; TEMP 97.8
== END 2023-01-18 16:29 | disposition home or self-care (01) ==
LOC: EC 12:49
DX: M54.9 Dorsalgia, unspecified (principal); J43.2 Centrilobular emphysema; I25.10 Atherosclerotic heart disease of native coronary artery without angina pectoris; I10 Essential (primary) hypertension; I25.2 Old myocardial infarction; Z87.891 Personal history of nicotine dependence; Z79.899 Other long term (current) drug therapy
CPT/HCPCS: 36415; 93005; 85379; 80053; 83735; 84484; 85025; 85610; 85730; 71275; 99285; Q9967

== ENCOUNTER → 2023-02-04 | Outpatient (CLI) | payer BC ==
--- NOTE | 2023-02-05 07:35 | MM ---
Reason for Exam: Screening (asymptomatic). Last screening mammogram was performed 12 month(s) ago. Patient History: Menarche at age 11. First Full-Term at age 18. Right ovary removed at age 24. Postmenopausal. Patient used Hormonal Contraceptives for 1 year. 1981, Lumpectomy on the Right side. Benign Excisional Biopsy on the right side. Maternal cousin had breast cancer, age 37. Maternal aunt had breast cancer, age 40. Maternal cousin had breast cancer, age 55. Risk Values: Bessy 5 year model risk: 1.3%. NCI Lifetime model risk: 5.7%. Prior Study Comparison: 06/20/2007 Bilateral Screening Mammogram, [facility]. 02/05/2012 Bilateral Screening Mammogram, [facility]. 02/03/2022 Bilateral MG 3D screening mammo w/cad, [facility]. Tissue Density: There are scattered fibroglandular densities. Findings: Analyzed By CAD. There is no suspicious group of microcalcifications or new suspicious mass in either breast. Overall Assessment: Benign, BI-RAD 2 Management: Screening Mammogram of both breasts in 1 year. . Patient should continue monthly self-breast exams. A clinical breast exam by your physician is recommended on an annual basis. This exam should not preclude additional follow-up of suspicious palpable abnormalities. Note on Bessy scores and lifetime risk: 1. A Bessy score greater than 3% is considered moderate risk. If this is the case, consider specialist referral to assess eligibility for a risk reducing agent. 2. If overall lifetime risk for the development of breast cancer is 20% or higher, the patient may qualify for future screening with alternating mammogram and breast MRI. Electronically signed and approved by: Oziel Onofre M.D. Radiologis
== END | disposition home or self-care (01) ==
LOC: RADMAMWWP 07:12
PROVIDERS: ATTEND Family Medicine
DX: Z12.31 Encounter for screening mammogram for malignant neoplasm of breast (principal); Z78.0 Asymptomatic menopausal state; Z80.3 Family history of malignant neoplasm of breast
CPT/HCPCS: 77063; 77067

== ENCOUNTER → 2023-04-24 | Outpatient (CLI) | payer BC ==
[2023-04-24 14:03] LABS: ALT 16 U/L (8-44); AST 24 U/L (13-35); Chol/HDL Ratio 2.19 Ratio; LDL Cholesterol,Calculated 55.8 mg/dL (0.0-131.0)
== END | disposition home or self-care (01) ==
LOC: LABWHC1 09:41
PROVIDERS: ATTEND Internal Medicine Interventional Cardiology
DX: E78.2 Mixed hyperlipidemia (principal)
CPT/HCPCS: 36415; 80061; 84450; 84460

== ENCOUNTER → 2023-10-11 | Outpatient (CLI) | payer BC ==
[2023-10-11 17:11] LABS: ALT 11 U/L (8-44); AST 21 U/L (13-35); Albumin 4.2 g/dL (3.8-4.9); Albumin/Globulin Ratio 1.68 Ratio (1.60-3.17); Alkaline Phosphatase 67 U/L (41-126); Blood Urea Nitrogen 26.4 mg/dL (9.0-27.0); Calcium 9.4 mg/dL (8.7-10.3); Carbon Dioxide 22.4 mmol/L (21.6-31.8); Chloride 108 mmol/L (96-109); Globulin 2.5 g/dL (1.6-3.3); Glucose 98 mg/dL (70-110); LDL Cholesterol,Calculated 113.1 mg/dL (0.0-131.0); Potassium 5.2 mmol/L (3.5-5.5); Sodium 141 mmol/L (135-145); Total Bilirubin 0.4 mg/dL (0.3-1.2); Total Protein 6.7 g/dL (6.2-8.2)
== END | disposition home or self-care (01) ==
LOC: LABWHC1 09:15
PROVIDERS: ATTEND Internal Medicine Interventional Cardiology
DX: I10 Essential (primary) hypertension (principal); E78.2 Mixed hyperlipidemia
CPT/HCPCS: 36415; 80053; 80061

== ENCOUNTER → 2024-02-07 | Outpatient (CLI) | payer BC ==
--- NOTE | 2024-02-07 09:10 | CTL ---
EXAMINATION TYPE: CT Low Dose Lung DATE OF EXAM: 02/07/2024 7:24 AM CLINICAL INDICATION:Female, 63 years old with history of Z87.891 personal hx tobacco use; history smo ker , history of tobacco use. COMPARISON: 01/18/2023. TECHNIQUE: Multiple axial non-contrast scans were obtained from approximately the lung apices through the upper abdomen. Coronal and sagittal reformatted images were obtained. Low dose technique was uti lized. CT DLP: 54.5 mGycm, Automated exposure control for dose reduction was used. CT Contrast: Contrast used: None Oral contrast used: None FINDINGS: ======== Lack of intravenous contrast and low dose technique limits the evaluation of the vascular and soft ti ssue structures. LUNGS: No evidence of pulmonary fibrosis. No evidence of focal consolidation, pneumothorax or pleural effusion. Centrilobular emphysema changes. Nodules: RUL: None. RML: None. RLL: 4 mm series 4 image 216. Stable back to 2022 CINTHYA: Calcified granuloma series 4 image 205. LLL: None. AIRWAY: Patent and unremarkable. HEART: Size within normal limits. Moderate atherosclerosis of the arterial vasculature. MEDIASTINUM: No gross evidence of adenopathy. VASCULATURE: No aortic aneurysm. MUSCULOSKELETAL: No acute osseous abnormalities SOFT TISSUES/LYMPH NODES: Unremarkable. LOWER NECK: No significant findings. UPPER ABDOMEN: No significant findings. IMPRESSION: 1. No clinically significant pulmonary nodules. 2. Severe emphysema. CT LUNG RAD AND CT CHEST RECOMMENDATION: Lung-Rad 2 Benign Appearance or Behavior: Continue annual sc reening with LDCT in 12 months. S Modifier (other clinically significant findings): None Recommend smoking cessation (if current smoker), or continuation of smoking cessation (if prior smoke r). Annual screening for lung cancer with low-dose computed tomography is recommended in adults ages 55 to 77 years who have a 30 pack-year smoking history and currently smoke or have quit within the pa st 15 years. Screening should be discontinued once a person has not smoked for 15 years or develops a health problem that substantially limits life expectancy or the ability or willingness to have curat bhavana lung surgery. Lung rads 2021 [email or web address]
== END | disposition home or self-care (01) ==
LOC: RADCTMAIN 06:57
PROVIDERS: ATTEND Family Medicine
DX: Z12.2 Encounter for screening for malignant neoplasm of respiratory organs (principal); J43.9 Emphysema, unspecified; Z87.891 Personal history of nicotine dependence
CPT/HCPCS: 71271

== ENCOUNTER → 2024-02-14 | Outpatient (CLI) | payer BC ==
--- NOTE | 2024-03-08 20:23 | MM ---
Reason for Exam: Screening (asymptomatic). Last mammogram was performed 1 year(s) and 1 month(s) ago. Patient History: Menarche at age 11. First Full-Term at age 18. Right ovary removed at age 24. Postmenopausal. Patient used Hormonal Contraceptives for 1 year. 1981, Lumpectomy on the Right side. Benign Excisional Biopsy on the right side. Maternal cousin had breast cancer, age 37. Maternal aunt had breast cancer, age 40. Maternal cousin had breast cancer, age 55. Risk Values: Bessy 5 year model risk: 1.4%. NCI Lifetime model risk: 5.6%. Prior Study Comparison: 02/05/2012 Bilateral Screening Mammogram, [facility]. 02/03/2022 Bilateral MG 3D screening mammo w/cad, [facility]. 02/04/2023 Bilateral MG 3D screening mammo w/cad, [facility]. Tissue Density: There are scattered areas of fibroglandular density. Findings: Analyzed By CAD. A few benign oil cyst calcifications noted. There is no suspicious group of microcalcifications or new suspicious mass in either breast. Overall Assessment: Benign, BI-RAD 2 Management: Screening Mammogram of both breasts in 1 year. . Patient should continue monthly self-breast exams. A clinical breast exam by your physician is recommended on an annual basis. This exam should not preclude additional follow-up of suspicious palpable abnormalities. Note on Bessy scores and lifetime risk: 1. A Bessy score greater than 3% is considered moderate risk. If this is the case, consider specialist referral to assess eligibility for a risk reducing agent. 2. If overall lifetime risk for the development of breast cancer is 20% or higher, the patient may qualify for future screening with alternating mammogram and breast MRI. Electronically signed and approved by: Rossana Wiggins M.D. Radiologist
== END | disposition home or self-care (01) ==
LOC: RADMAMWWP 07:13
PROVIDERS: ATTEND Family Medicine
DX: Z12.31 Encounter for screening mammogram for malignant neoplasm of breast (principal); Z78.0 Asymptomatic menopausal state; Z80.3 Family history of malignant neoplasm of breast; Z90.721 Acquired absence of ovaries, unilateral; R92.323 Mammographic fibroglandular density, bilateral breasts
CPT/HCPCS: 77063; 77067

== ENCOUNTER → 2024-03-30 | Outpatient (CLI) | payer MEDICARE, BC ==
--- NOTE | 2024-04-10 21:35 | BD ---
EXAMINATION TYPE: Axial Bone Density DATE OF EXAM: 03/30/2024 CLINICAL HISTORY: 64 years old Female. ICD-10 CODE: Z78.0 ASYMPTOMATIC MENOPAUSAL STATE Height: 63.5 Weight: 105.6 FRAX RISK QUESTIONS: Alcohol (3 or more units per day): no Family History (Parent hip fracture): no Glucocorticoids (More than 3mos): inhaler past 3 months x times a day (Ex: prednisone, prednisolone, methylprednisolone, dexamethasone, and hydrocortisone). History of Fracture in Adulthood: ribs Secondary Osteoporosis: 1. Type 1 Diabetes: no 2. Hyperthyroidism: no 3. Menopause before 45: no 4. Malnutrition: no 5. Chronic liver disease: no Rheumatoid Arthritis: no Current Tobacco Use: no RISK FACTORS HISTORY OF: Hip Fracture (Right/Left): no Spine Fracture: no History of Wrist Fracture: no Surgery to Spine/Hip(right/left)/Wrist (right/left): no MEDICATIONS: Thyroid Medications: no Osteoporosis Medications: no EXAM MEASUREMENTS: Bone mineral densitometry was performed using the [employer] System. Bone mineral density as measured about the Lumbar spine is: ----- L1-L4(G/cm2): 1.42 T Score Values are as follows: ----- L1: -2.3 ----- L2: -2.0 ----- L3: 0.0 ----- L4: 2.3 ----- L1-L4: -0.3 Z Score Values are as follows: ----- L1: -0.2 ----- L2: 0.2 ----- L3: 2.1 ----- L4: 4.5 ----- L1-L4: 1.8 Baseline Study Bone mineral density about the R hip (g/cm2): 0.807 Bone mineral density about the L hip (g/cm2): 0.723 T Score values are as follows: -----R Neck: -1.8 -----L Neck: -2.2 -----R Total: -1.6 -----L Total: -2.3 Z Score values are as follows: -----R Neck: 0.0 -----L Neck: -0.4 -----R Total: 0.0 -----L Total: -0.7 Baseline Study FRAX%s: The graph provided illustrates a 16.2% chance for a major osteoporotic fx and a 3.2% chance f or the hips probability for fx in 10 years time. IMPRESSION: Osteopenia (T Score between -2.5 and -1). There is slightly increased risk of fracture and the patient may be considered for treatment. Re-Screen 2-5 years. NOTE: T-SCORE=SD OF THE YOUNG ADULT MEAN. [facility], , 04/10/2024 9:32 PM
== END | disposition home or self-care (01) ==
LOC: RADBDWWP 07:42
PROVIDERS: ATTEND Family Medicine
DX: Z78.0 Asymptomatic menopausal state
CPT/HCPCS: 77080

== ENCOUNTER → 2024-04-29 | Outpatient (CLI) | payer MEDICARE, BC ==
[2024-04-30 10:23] LABS: Chol/HDL Ratio 2.58 Ratio; LDL Cholesterol,Calculated 68.2 mg/dL (0.0-131.0)
== END | disposition home or self-care (01) ==
LOC: LABWHC1 10:30
PROVIDERS: ATTEND Nurse Practitioner Adult Health
DX: E78.2 Mixed hyperlipidemia (principal)
CPT/HCPCS: 36415; 80061

== ENCOUNTER 2024-05-19 05:43 | Day surgery (SDC) | payer MEDICARE, BC ==
[2024-05-19] MEDS: SODIUM CHLORIDE 0.9% 1,000 ML IV SCH (06:18)
[2024-05-19] MEDS: IV FLUID CONTINUATION 1,000 ML IV ONE (06:19)
[2024-05-19 06:34] VITALS: TEMP 97.8
[2024-05-19] MEDS: BENZOCAINE SPRAY 1 CAN TOPICAL ONE (07:20)
[2024-05-19] MEDS: fentaNYL (PF) 50 MCG/ML 2 ML AMP IVP ONE (07:22)
[2024-05-19] MEDS: MIDAZOLAM 2 MG/2 ML VIAL IVP ONE (07:22)
--- NOTE | 2024-05-19 07:45 | P.PCN ---
Date of Procedure: 05/19/24 Description of Procedure: Indication: Mitral regurgitation Procedure Description: After explaining the procedure to the patient, it's risk and complications, blood pressure, heart rate and O2 saturation were monitored. The throat was sprayed with Cetacaine. Patient received 2 mg intravenous Versed, 50 mcg intravenous fentanyl. The probe was introduced into the esophagus without difficulty. Images were obtained. Following that, the probe was removed. There was no immediate complication. Findings: Left atrial size appears to be normal, left atrial appendage is normal. Left ventricular size and systolic function are normal. The aortic valve is tricuspid valve with mild thickening of the leaflets. The mitral valve revealed thickening of the tip of the anterior mitral valve leaflet with evidence of prolapse. The tricuspid and pulmonic valve are normal. Descending thoracic aorta revealed mild atherosclerotic changes. No pericardial fusion was noted. Contrast bubble study revealed no shunting across the interatrial septum with Valsalva maneuver. Doppler: Pulse wave and color Doppler were obtained, and revealed severe eccentric mitral regurgitation with mild tricuspid and aortic regurgitation. There was no shunting across the interatrial septum. Conclusion: 1. Normal left ventricular size and systolic function 2. Normal appearance of the left atrial appendage 3. Thickening of the anterior mitral valve leaflets with prolapse and severe eccentric mitral regurgitation 4. Mild tricuspid and aortic regurgitation 5. No shunting across the interatrial septum Duration of sedation 15 minutes
[2024-05-19 07:55] VITALS: PULSE 56; RESP 16
[2024-05-19] MEDS ORDERED: lisinopriL 5 MG TAB PO SCH (09:00)
[2024-05-19] MEDS ORDERED: ASPIRIN 81 MG PO SCH (09:00)
[2024-05-19 09:12] VITALS: BP 121/60
[2024-05-19] MEDS ORDERED: ATORVASTATIN 80 MG TAB PO SCH (21:00)
== END 2024-05-19 09:09 | disposition home or self-care (01) ==
LOC: CATHCVL 05:43
PROVIDERS: ATTEND Internal Medicine Interventional Cardiology
DX: I25.10 Atherosclerotic heart disease of native coronary artery without angina pectoris (principal); I08.0 Rheumatic disorders of both mitral and aortic valves; I10 Essential (primary) hypertension; E78.2 Mixed hyperlipidemia; I73.9 Peripheral vascular disease, unspecified; F17.210 Nicotine dependence, cigarettes, uncomplicated; I65.23 Occlusion and stenosis of bilateral carotid arteries; Z79.02 Long term (current) use of antithrombotics/antiplatelets; Z79.899 Other long term (current) drug therapy
CPT/HCPCS: 93312; 93320; 93325; J2250; J3010

== ENCOUNTER → 2024-06-13 | Outpatient (CLI) | payer MEDICARE, BC ==
[2024-06-13 14:47] LABS: HCT 34.8 % (37.2-46.3); MCH 33.4 pg (27.0-32.0); MCHC 31.6 g/dL (32.0-37.0); MCV 105.8 FL (80.0-97.0); Mean Platelet Volume 11.5 FL (9.5-12.2); NRBC Per 100 WBC 0 X 10*3/uL (0.00-0.01); Platelet Count 167 X 10*3/uL (140-440); RBC 3.29 X 10*6/uL (4.10-5.20); RDW 13.4 % (11.5-14.5); WBC 4.43 X 10*3/uL (4.50-10.00)
[2024-06-13 15:06] LABS: Blood Urea Nitrogen 26.7 mg/dL (9.0-27.0); Carbon Dioxide 24.5 mmol/L (21.6-31.8); Chloride 104 mmol/L (96-109); Potassium 5.1 mmol/L (3.5-5.5); Sodium 140 mmol/L (135-145)
== END | disposition home or self-care (01) ==
LOC: LABPAT 08:07
PROVIDERS: ATTEND Internal Medicine Interventional Cardiology
DX: Z01.812 Encounter for preprocedural laboratory examination (principal); I34.0 Nonrheumatic mitral (valve) insufficiency
CPT/HCPCS: 80051; 82565; 84520; 85027

== ENCOUNTER 2024-06-21 05:35 | Day surgery (SDC) | payer MEDICARE, BC ==
[2024-06-19 15:20] VITALS: BMI 18.8
[2024-06-21] MEDS ORDERED: ALPRAZolam 0.5 MG TAB PO PRN (06:19)
[2024-06-21] MEDS ORDERED: NITROGLYCERIN SL TABS 0.4 MG TAB SUBLINGUAL PRN (06:19)
[2024-06-21] MEDS ORDERED: ALPRAZolam 0.25 MG TAB PO PRN (06:19)
[2024-06-21 07:05] VITALS: RESP 16; TEMP 98.2
[2024-06-21] MEDS: ASPIRIN 325 MG TAB PO STA (07:13)
[2024-06-21] MEDS: SODIUM CHLORIDE 0.9% 1,000 ML in EMPTY BAG 1 BAG IV ONE (07:13)
[2024-06-21] MEDS: ATORVASTATIN 80 MG TAB PO STA (07:13)
[2024-06-21] MEDS: IV FLUID CONTINUATION 1,000 ML IV ONE (07:15)
[2024-06-21] MEDS: fentaNYL (PF) 50 MCG/ML 2 ML AMP IVP ONE (07:45)
[2024-06-21] MEDS: LIDOCAINE 1% INJ 10MG/ML (20 ML MDV) SQ ONE (07:50)
[2024-06-21] MEDS: MIDAZOLAM 2 MG/2 ML VIAL IVP ONE (08:10)
[2024-06-21] MEDS: IOPAMIDOL-370 100ML BTL INJ ONE (08:21)
[2024-06-21] MEDS: HEPARIN SODIUM,PORCINE (1 ML) 2,500 UNIT in SODIUM CHLORIDE 0.9% 250 ML IRRIGATION PRN (08:21)
[2024-06-21] MEDS: HEPARIN SODIUM,PORCINE 10,000 UNIT in SODIUM CHLORIDE 0.9% 1,000 ML IRRIGATION PRN (08:21)
[2024-06-21 08:29] LABS: O2 Sat Blood Gas 49.8 %
[2024-06-21 08:31] LABS: O2 Sat Blood Gas 96.4 %
[2024-06-21 08:32] LABS: O2 Sat Blood Gas 56.8 %
[2024-06-21] MEDS ORDERED: RX INFO: IV CONTRAST WAS GIVEN 1 EACH MISC MISCELLANE PRN (08:35)
[2024-06-21] MEDS ORDERED: SODIUM CHLORIDE 0.9% 1,000 ML IV SCH (08:45)
--- NOTE | 2024-06-21 08:45 | P.CARDCATH ---
Date of Procedure: 06/21/24 Description of Procedure: Cardiac Catheterization: The patient is a 64-year-old female with known history of hypertension, hyperlipidemia, multivessel stenting who has been complaining of progressive symptoms of dyspnea and was found to have severe mitral regurgitation with mitral valve prolapse. Recommendations were made regarding cardiac catheterization, the risks and the complications were discussed with the patient who is in full understanding and agreement. Procedure Description: Patient was brought to label machine operator in fasting semi-sedated state after receiving Fentanyl and Benadryl achieiving moderate conscious sedated state. Using Xylocaine Anesthesia and modified Seldinger technique, using micropuncture needle a 6-[place] sheath was introduced in the right femoral artery . Attempt to cannulate the right radial artery were unsuccessful in advancing the wire with poor pulse. The venous access catheter in the right basilic vein was exchanged to a 6 [place] sheath. Right heart catheterization was performed using Gal[place]-Catherine catheter. Multiple samples and pressures were obtained. Cardiac o utput by thermodilution was calculated. Subsequently, selective coronary angiography was performed using a 6-[place] 4 bend Herminia catheter. Multiple views of the coronary artery including hemiaxial views were obtained. The left Herminia catheter was used to cross the aortic valve and LVEDP was calculated. Following that, catheter and sheath were removed. Hemostasis was obtained with compression of the right groin and the right brachial area.. There was no immediate complication. Patient was returned to room in stable condition. Findings: Fluoroscopy: There is significant calcifications involving the left main, LAD and the right coronary artery. Left main: This is a short size vessel, bifurcating into LAD and left circumflex, left main has no obstructive disease LAD: This is a large size vessel, calcified, reaching to the apex. The proximal LAD has 20 to 30% plaque, the rest of the vessel has no high-grade stenosis Left circumflex: This is a nondominant vessel, large in caliber, giving rise to 2 obtuse marginal branch. The left circumflex proximally has 20 to 30% plaque with mild intimal disease in the second obtuse marginal branch. The rest of the vessel has no high-grade stenosis RCA: This is a large dominant vessel, bifurcating distally to PDA and PLV the right coronary artery has stents from the proximal to the distal segment. There is a focal in-stent restenosis of about 70% in the midsegment the rest of the vessel has intimal disease with no high-grade stenosis Left Ventriculogram: Not performed Hemodynamics: Pulmonary artery systolic of 47, diastolic 20 with a mean of 30 mmHg. Pulmonary capillary wedge pressure A-wave of 23 V wave of 22 with a mean of 15 mmHg, right ventricle systolic of 48 with end-diastolic of 12 mmHg, right atrium A wave of 12 V wave of 10 with a mean of 10 mmHg. There was no gradient across the aortic valve, left ventricle end-diastolic pressure of 15 to 18 mmHg. Cardiac output by thermodilution of 4.5 L/min with an index of 3.1 L/min/m. Cardiac output by Joseph 3.7 L/min with an index of 2.5 L/min/m. Right atrial saturation 57% pulmonary artery 50% with arterial saturation of 96%. Conclusion: 1. Calcified coronary arteries 2. In-stent restenosis of the mid right coronary artery 3. Mild to moderate pulmonary hypertension 4. Right dominance Recommendations: I have recommended to proceed with evaluation for mitral valve repair and bypass to the RCA in view of her symptoms and progressive mitral regurgitation. The findings and the recommendations were discussed with the patient and the family and they were in full understanding and agreement. Duration of sedation is 39 minutes.
[2024-06-21 16:55] VITALS: BP 137/62; PULSE 54
[2024-06-21] MEDS ORDERED: ATORVASTATIN 40 MG TAB PO SCH (21:00)
[2024-06-22] MEDS ORDERED: IPRATROPIUM 0.5 MG/2.5 ML NEBU INHALATION SCH (08:00)
[2024-06-22] MEDS ORDERED: SYMBICORT 80-4.5 MCG INHALER INHALATION SCH (08:00)
[2024-06-22] MEDS ORDERED: lisinopriL 5 MG TAB PO SCH (09:00)
[2024-06-22] MEDS ORDERED: ASPIRIN 81 MG PO SCH (09:00)
== END 2024-06-21 16:03 | disposition home or self-care (01) ==
LOC: CATHCVL 05:35
PROVIDERS: ATTEND Internal Medicine Interventional Cardiology
DX: T82.855A Stenosis of coronary artery stent, initial encounter (principal); I10 Essential (primary) hypertension; E78.5 Hyperlipidemia, unspecified; I27.20 Pulmonary hypertension, unspecified; I34.0 Nonrheumatic mitral (valve) insufficiency; I65.23 Occlusion and stenosis of bilateral carotid arteries; Z79.82 Long term (current) use of aspirin; Z79.899 Other long term (current) drug therapy; Y83.8 Other surgical procedures as the cause of abnormal reaction of the patient, or of later complication, without mention of misadventure at the time of the procedure
CPT/HCPCS: 99152; 99153; 93460; 85018; 82810; J2250; J1644 ×2; J2003; J3010; Q9967

== ENCOUNTER → 2024-07-26 | Outpatient (CLI) | payer MEDICARE, BC | LOC: CPPFTMAIN 15:43 | PROVIDERS: ATTEND Internal Medicine | DX: R06.2 Wheezing (principal); R06.02 Shortness of breath | CPT/HCPCS: 94060; 94726; 94729 ==

== ENCOUNTER → 2024-08-01 | Outpatient (CLI) | payer MEDICARE, BC ==
--- NOTE | 2024-08-01 15:47 | US ---
EXAMINATION TYPE: US vein mapping BILAT DATE OF EXAM: 08/01/2024 3:18 PM COMPARISON: NONE CLINICAL INDICATION: Female, 64 years old with history of Z01.818 ENCOUNTER FOR OTHER PREPROCEDURAL E XAMINAT; , Preop- Cardiac Surgery TECHNIQUE: Grayscale and color Doppler imaging of the lower extremity venous system. SIDE PERFORMED: Bilateral FINDINGS: DUPLEX FINDINGS: Greater Saphenous: Color flow seen Measurements in mm: Right Greater Saphenous: Groin: 4.9x3.9mm High Thigh: 4.7x2.8mm Mid Thigh: 4.5x3.2 mm Above Knee: 3.6x3.5 mm Knee: 3.6x3.0 mm Below Knee: 3.4x2.5 mm Mid Calf: 2.9x2.0 mm At Ankle: 2.5x1.7 mm Left Greater Saphenous: Groin: 5.4x2.9 mm High Thigh: 2.9x2.5 mm Mid Thigh: 3.2x2.8 mm Above Knee: 2.2x1.7 mm Knee: 2.6x1.7 mm Below Knee: 2.0x1.7 mm Mid Calf: 2.6x1.4 mm At Ankle: 2.6x2.1 mm IMPRESSION: 1. No evidence for occlusion. 2. GSV measurements listed above. 3. Performing surgeon to determine viability as conduit. [facility], , 08/01/2024 3:45 PM
== END | disposition home or self-care (01) ==
LOC: RADUSWWP 14:40
PROVIDERS: ATTEND Surgery
DX: Z01.818 Encounter for other preprocedural examination (principal); I34.2 Nonrheumatic mitral (valve) stenosis; I25.10 Atherosclerotic heart disease of native coronary artery without angina pectoris
CPT/HCPCS: 93970

== ENCOUNTER → 2024-09-06 | Outpatient (CLI) | payer MEDICARE, BC ==
[2024-09-06 15:03] LABS: HCT 35.2 % (37.2-46.3); HGB 10.9 g/dL (12.0-15.0); MCH 32.8 pg (27.0-32.0); Mean Platelet Volume 12.1 FL (9.5-12.2); NRBC Per 100 WBC 0 X 10*3/uL (0.00-0.01); Platelet Count 176 X 10*3/uL (140-440); RBC 3.32 X 10*6/uL (4.10-5.20); RDW 13.2 % (11.5-14.5); WBC 4.53 X 10*3/uL (4.50-10.00)
[2024-09-06 15:19] LABS: Blood Urea Nitrogen 23.9 mg/dL (9.0-27.0); Carbon Dioxide 23.5 mmol/L (21.6-31.8); Chloride 104 mmol/L (96-109); Potassium 5.2 mmol/L (3.5-5.5); Sodium 140 mmol/L (135-145)
== END | disposition home or self-care (01) ==
LOC: LABWHC1 08:24
PROVIDERS: ATTEND Internal Medicine Interventional Cardiology
DX: Z01.812 Encounter for preprocedural laboratory examination (principal); I25.10 Atherosclerotic heart disease of native coronary artery without angina pectoris
CPT/HCPCS: 36415; 80051; 82565; 84520; 85027

== ENCOUNTER 2024-09-13 06:49 | Day surgery (SDC) | payer MEDICARE, BC ==
[2024-09-08 15:52] VITALS: BMI 18.8
[~2024-09-13 06:49] MED LIST: ALPRAZolam 0.25 MG TAB PO PRN; ALPRAZolam 0.5 MG TAB PO PRN; NITROGLYCERIN SL TABS 0.4 MG TAB SUBLINGUAL PRN
[2024-09-13] MEDS: SODIUM CHLORIDE 0.9% 1,000 ML in EMPTY BAG 1 BAG IV SCH (07:07)
[2024-09-13] MEDS: ASPIRIN 325 MG TAB PO STA (07:14)
[2024-09-13 07:24] VITALS: RESP 16; TEMP 96.9
[2024-09-13] MEDS: IV FLUID CONTINUATION 1,000 ML IV ONE (07:48)
[2024-09-13] MEDS: HEPARIN SODIUM,PORCINE (1 ML) 2,500 UNIT in SODIUM CHLORIDE 0.9% 250 ML IRRIGATION PRN (08:59)
[2024-09-13] MEDS: HEPARIN SODIUM,PORCINE 10,000 UNIT in SODIUM CHLORIDE 0.9% 1,000 ML IRRIGATION PRN (08:59)
[2024-09-13] MEDS: LIDOCAINE 1% INJ 10MG/ML (20 ML MDV) SQ ONE (09:38)
[2024-09-13] MEDS: fentaNYL (PF) 50 MCG/ML 2 ML AMP IVP ONE (09:38)
[2024-09-13] MEDS: VERAPAMIL SYRINGE (5 MG/10 ML) INTRAARTER ONE (09:41)
[2024-09-13] MEDS: CLOPIDOGREL 75 MG TAB PO ONE (09:45)
[2024-09-13] MEDS: HEPARIN SODIUM 1,000 UN/ML (10ML VL) IVP ONE (09:45)
[2024-09-13] MEDS: IOPAMIDOL-370 100ML BTL INJ ONE (10:10)
[2024-09-13] MEDS ORDERED: MAG HYDROX/AL HYDROX/SIMETH 30 ML CUP PO PRN (10:24)
[2024-09-13] MEDS ORDERED: ATROPINE SULFATE 0.1 MG/ML 10ML SYRINGE IV PRN (10:24)
[2024-09-13] MEDS ORDERED: NITROGLYCERIN SL TABS 0.4 MG TAB SUBLINGUAL PRN (10:24)
[2024-09-13] MEDS ORDERED: RX INFO: IV CONTRAST WAS GIVEN 1 EACH MISC MISCELLANE PRN (10:24)
[2024-09-13] MEDS ORDERED: ZOLPIDEM 5 MG TAB PO PRN (10:24)
[2024-09-13] MEDS ORDERED: SODIUM CHLORIDE 0.9% 1,000 ML in EMPTY BAG 1 BAG IV SCH (10:30)
--- NOTE | 2024-09-13 10:31 | P.CARDCATH ---
Date of Procedure: 09/13/24 Description of Procedure: PERCUTANEOUS TRANSLUMINAL CORONARY ANGIOPLASTY CLINICAL INFORMATION: The patient is a 64-year-old female with known history of multivessel stenting, severe mitral regurgitation who underwent cardiac catheterization recently and was found to have in-stent restenosis in the mid right coronary artery. She was evaluated for mitral valve repair and CABG but was felt to be a high risk. Recommendations were made regarding angioplasty and stenting. The procedure as well as the risks and the complications were discussed with the patient who was in full understanding and agreement. PROCEDURE: The patient was brought to the [facility] in the fasting semisedated state after receiving fentanyl and Benadryl, using Xylocaine anesthesia in the saltation technique a 6 [place] sheath was introduced in the left radial artery. A 6 [place] FR 4 guiding catheter was introduced into the system. After cannulating the right coronary ostium, a 0.014 BMW J-wire was advanced across the lesion and positioned distally. A Art Qualified eye IVUS catheter was introduced and images were obtained and revealed under deployment of the stent in the midsegment with calcifications. Following that a 3.0 x 20 mm score flex balloon was advanced and inflated at 10 atmosphere. Following that a 3.5 x 20 mm NC trek balloon was advanced and multiple inflation up to 16 hira were done. After removing the balloon repeat IVUS imaging was performed and revealed significant improvement in the lumen diameter. After the last inflation, after appropriate wait, the balloon and the guidewire were withdrawn back into the guiding catheter. Images were obtained and repeated. Those images reveal stable successful stenting. At that point, the guiding catheter, the balloon, and guidewire were removed. The sheath was removed. Hemostasis was obtained with deployment of a TR band. There were no immediate complications. The patient was returned to the room in stable condition. Of note, the patient received 5500 units of heparin as well as Plavix. His ACT was followed. There was no immediate complications. She had EKG changes but no chest discomfort. RESULTS: Successful PTCA of in-stent restenosis of the mid RCA with reduction of stenosis from 80% to less than 5% with IVUS imaging. RECOMMENDATIONS: The patient will continue on aspirin and clopidogrel in addition to aggressive coronary risk modifications, maintaining LDL below 70 mg/dL. She will be evaluated for mitral valve clip. The findings and recommendations were discussed with the patient and the family, they are in full understanding and agreement. Duration of sedation: 30 minutes
[2024-09-13 19:21] VITALS: BP 137/69; PULSE 64
[2024-09-13] MEDS ORDERED: ATORVASTATIN 40 MG TAB PO SCH (21:00)
[2024-09-14] MEDS ORDERED: lisinopriL 5 MG TAB PO SCH (09:00)
[2024-09-14] MEDS ORDERED: CLOPIDOGREL 75 MG TAB PO SCH (09:00)
[2024-09-14] MEDS ORDERED: ASPIRIN 81 MG PO SCH (09:00)
== END 2024-09-13 14:15 | disposition home or self-care (01) ==
LOC: CATHCVL 06:49
PROVIDERS: ATTEND Internal Medicine Interventional Cardiology
DX: T82.855A Stenosis of coronary artery stent, initial encounter (principal); I25.10 Atherosclerotic heart disease of native coronary artery without angina pectoris; I34.0 Nonrheumatic mitral (valve) insufficiency; I65.23 Occlusion and stenosis of bilateral carotid arteries; I10 Essential (primary) hypertension; F17.210 Nicotine dependence, cigarettes, uncomplicated; E78.2 Mixed hyperlipidemia; Z79.02 Long term (current) use of antithrombotics/antiplatelets; Z79.899 Other long term (current) drug therapy
CPT/HCPCS: 92920; 92978; J1644 ×3; J2003; J3010; Q9967

== ENCOUNTER → 2024-11-06 | Outpatient (CLI) | payer MEDICARE, BC ==
[2024-11-06 15:47] LABS: ALT 14 U/L (8-44); AST 22 U/L (13-35); Chol/HDL Ratio 2.46 Ratio; LDL Cholesterol,Calculated 66.3 mg/dL (0.0-131.0); VLDL Calculation 16.86 mg/dL (5.00-40.00)
== END | disposition home or self-care (01) ==
LOC: LABWHC1 09:05
PROVIDERS: ATTEND Internal Medicine Interventional Cardiology
DX: E78.2 Mixed hyperlipidemia (principal)
CPT/HCPCS: 36415; 80061; 84450; 84460

== ENCOUNTER 2024-11-15 16:57 | Inpatient (IN) | payer MEDICARE, BC ==
--- NOTE | 2024-11-15 17:59 | ED ---
General Adult HPI - General Source: patient, RN notes reviewed Mode of arrival: wheelchair Limitations: no limitations <Michelle Quintero - Last Filed: 11/15/24 17:58> <Tami Casey - Last Filed: 11/16/24 02:47> - General Chief complaint: Extremity Problem,Nontraumatic Stated complaint: sent by doctor/R foot swelling Time Seen by Provider: 11/15/24 17:10 - History of Present Illness Initial comments: Quick [id number] male presented to emergency room with referral from primary care provider with concerns for right foot pain and swelling. Patient was urged by primary care to report to emergency room for ultrasound to rule out blood clot. Patient denies history of DVT. Is currently on Plavix. Pain and swelling has been present for the past 4 days. (Michelle Quintero) 64-year-old female presenting with chief complaint of right foot pain and discoloration. Patient has noticed pain and redness to the right foot for the last 4 days. Worse with palpation and range of motion. She was sent by her PCP to the ER. She is having no chest pain or difficulty breathing. She denies any injury or trauma. No numbness or tingling. She does have a scab on the third toe about the size of a pencil eraser. No fever. No nausea or vomiting. Patient is currently on Plavix. (Tami Casey) - Related Data Home Medications Medication Instructions Recorded Confirmed lisinopriL [Zestril] 5 mg PO DAILY 07/27/22 09/13/24 Acetaminophen Tab [Tylenol] 1,000 mg PO DAILY 11/24/22 09/08/24 Atorvastatin [Lipitor] 40 mg PO HS 05/15/24 09/08/24 Fluticasone/Umeclidin/Vilanter 1 puff INHALATION DAILY 05/15/24 09/13/24 [Trelegy Ellipta 100-62.5-25] Ibuprofen [Motrin Ib] 400 mg PO DIRECTED PRN 05/15/24 09/08/24 Calcium Carbonate/Vitamin D3 1,200 mg PO DAILY 06/19/24 09/08/24 [Calcium 600Mg-D3 400 Unit Sfgl] Cholecalciferol (Vitamin D3) 50 mcg PO DAILY 06/19/24 09/08/24 [Vitamin D3 (50 Mcg = 2000 Iu)] Previous Rx's Medication Instructions Recorded Aspirin 81 mg PO DAILY #30 tab 11/25/22 Nitroglycerin Sl Tabs [Nitrostat] 0.4 mg SUBLINGUAL Q5M PRN #20 tab 11/25/22 Clopidogrel [Plavix] 75 mg PO DAILY #90 tablet 09/13/24 Allergies Allergy/AdvReac Type Severity Reaction Status Date / Time No Known Allergies Allergy Verified 11/15/24 17:00 Review of Systems ROS Other: All systems not noted in ROS Statement are negative. <Michelle Quintero - Last Filed: 11/15/24 17:58> ROS Other: All systems not noted in ROS Statement are negative. <Tami Casey - Last Filed: 11/16/24 02:47> ROS Statement: Those systems with pertinent positive or pertinent negative responses have been documented in the HPI. Past Medical History Past Medical History: Chest Pain / Angina, COPD, Hyperlipidemia, Hypertension, Myocardial Infarction (RI) Additional Past Medical History / Comment(s): murmur Last Myocardial Infarction Date:: 10/04/21 History of Any Multi-Drug Resistant Organisms: None Reported Past Surgical History: Heart Catheterization With Stent, Tonsillectomy Additional Past Surgical History / Comment(s): R oophrectomy Past Anesthesia/Blood Transfusion Reactions: No Reported Reaction Additional Past Anesthesia/Blood Transfusion Reaction / Comment(s): NO BLOOD TRANSFUSION HX Date of Last Stent Placement:: 10/04/21 Past Psychological History: No Psychological Hx Reported Smoking Status: Former smoker - Past Family History Mother Family Medical History: Myocardial Infarction (RI) Father Family Medical History: Coronary Artery Disease (CAD) <Michelle Quintero - Last Filed: 11/15/24 17:58> General Exam Limitations: no limitations <Michelle Quintero - Last Filed: 11/15/24 17:58> Limitations: no limitations General appearance: alert, in no apparent distress Head exam: Present: atraumatic, normocephalic, normal inspection Eye exam: Present: normal appearance, EOMI Neck exam: Present: normal inspection. Absent: meningismus Respiratory exam: Present: normal lung sounds bilaterally. Absent: respiratory distress, wheezes, rales, rhonchi, stridor Cardiovascular Exam: Present: regular rate, normal rhythm, normal heart sounds. Absent: systolic murmur, diastolic murmur, rubs, gallop, clicks Right Foot/Toe exam: Present: full ROM, tenderness, erythema (There is erythema to the toes and rubor seen to the foot and ankle). Absent: swelling Neurovascular tendon exam: Present: pulse deficit Neurological exam: Present: alert, oriented X3 Psychiatric exam: Present: normal affect, normal mood <Tami Casey - Last Filed: 11/16/24 02:47> - General Exam Comments Initial Comments: Visual Physical Exam Vital signs reviewed General: Well-appearing, nontoxic, no acute distress. Head: Normocephalic, atraumatic Eyes: PERRLA, EOMI ENT: Airway patent Chest: Nonlabored breathing Skin: No visual rash, normal skin tone Neuro: Alert and oriented 3 Musculoskeletal: No gross abnormalities (Michelle Quintero) Course Vital Signs 11/15/24 11/15/24 11/16/24 16:58 23:52 02:03 Temperature 97.6 F 97.7 F 98.0 F Pulse Rate 63 73 71 Respiratory 16 20 20 Rate Blood Pressure 136/72 121/67 114/54 O2 Sat by Pulse 97 93 L 88 L Oximetry 11/16/24 02:13 Temperature Pulse Rate 75 Respiratory 20 Rate Blood Pressure O2 Sat by Pulse 98 Oximetry Medical Decision Making <Michelle Quintero - Last Filed: 11/15/24 17:58> - Lab Data Result diagrams: 11/15/24 21:25 11/15/24 21:25 <Tami Casey - Last Filed: 11/16/24 02:47> - Medical Decision Making I completed the quick note portion of this chart signed Michelle Quintero PA-C (Michelle Quintero) 64-year-old female presenting with chief complaint of right foot redness and pain. Workup was initiated by triage. Foot x-ray showed no acute osseous process and Doppler ultrasound was negative for DVT. Patient was later placed in a room and examined by myself. Erythema/rubor was noted on exam and pulse deficit was also noted. There is still warmth to the foot, no duskiness or cold extremity. Lab work was obtained which showed white count of 4.24 and hemoglobin of 10.2. CT angio was obtained which shows severe peripheral arterial disease. Given that the patient did have some abrasions to the toes she was given a dose of Kefzol here in the ER. Upon receiving CT results she was started on heparin. She will be admitted with vascular surgery consult. Patient is agreeable with this plan. I discussed this case with my attending Dr. Garcia Was pt. sent in by a medical professional or institution (, PA, MEDICAL ASSISTANT SECRETARY, urgent care, hospital, or intermediate...) When possible be specific @ -PCP Did you speak to anyone other than the patient for history (EMS, parent, family, police, friend...)? What history was obtained from this source @ -No Did you review nursing and triage notes (agree or disagree)? Why? @ -I reviewed and agree with nursing and triage notes Were old charts reviewed (outside hosp., previous admission, EMS record, old EKG, old radiological studies, urgent care reports/EKG's, intermediate records)? Report findings @ -No old charts were reviewed Differential Diagnosis (chest pain, altered mental status, abdominal pain women, abdominal pain men, vaginal bleeding, weakness, fever, dyspnea, syncope, headache, dizziness, GI bleed, back pain, seizure, CVA, palpatations, mental health, musculoskeletal)? @ -Differential Musculoskeletal Muscular strain, contusion, ligament sprain, fracture, arthritis, septic arthritis, bursitis, cellulitis, muscle spasm, nerve compression, DVT, arterial occlusion, herpes zoster, electrolyte abnormality, tumor.... This is not meant to be in all inclusive list EKG interpreted by me (3pts min.). @ -As above X-rays interpreted by me (1pt min.). @ -X-ray shows soft tissue swelling without evidence of fracture or osteomy elitis. Multifocal degenerative changes throughout the joints of the foot CT interpreted by me (1pt min.). @ -CTA of the abdominal aorta with runoff shows severe atherosclerotic changes in the inferior abdominal aorta and distally U/S interpreted by me (1pt. min.). @ -Ultrasound negative for DVT What testing was considered but not performed or refused? (CT, X-rays, U/S, labs)? Why? @ -None What meds were considered but not given or refused? Why? @ -None Did you discuss the management of the patient with other professionals (professionals i.e. , PA, MEDICAL ASSISTANT SECRETARY, lab, RT, psych nurse, social media analyst, dye colorist formulator, teacher, professional security officer, case management associate)? Give summary @ -My attending spoke with the [facility] provider on-call who accepts admission Was smoking cessation discussed for >3mins.? @ -No Was critical care preformed (if so, how long)? @ -No Were there social determinants of health that impacted care today? How? (Homelessness, low income, unemployed, alcoholism, drug addiction, transportation, low edu. Level, literacy, decrease access to med. care, assisted, rehab)? @ -No Was there de-escalation of care discussed even if they declined (Discuss DNR or withdrawal of care, Hospice)? DNR status @ -No What co-morbidities impacted this encounter? (DM, HTN, Smoking, COPD, CAD, Cancer, CVA, ARF, Chemo, Hep., AIDS, mental health diagnosis, sleep apnea, morbid obesity)? @ -Hypertension, hyperlipidemia Was patient admitted / discharged? Hospital course, mention meds given and route, prescriptions, significant lab abnormalities, going to OR and other pertinent info. @ -Admitted, see above for details Undiagnosed new problem with uncertain prognosis? @ -No Drug Therapy requiring intensive monitoring for toxicity (Heparin, Nitro, Insulin, Cardizem)? @ -Heparin Were any procedures done? @ -No Diagnosis/symptom? @ -Severe peripheral arterial disease Acute, or Chronic, or Acute on Chronic? @ -Acute Uncomplicated (without systemic symptoms) or Complicated (systemic symptoms)? @ -Complicated Side effects of treatment? @ -No Exacerbation, Progression, or Severe Exacerbation? @ -No Poses a threat to life or bodily function? How? (Chest pain, [place], RI, pneumonia, PE, COPD, DKA, ARF, appy, cholecystitis, CVA, Diverticulitis, Homicidal, Suicidal, threat to staff... and all critical care pts) @ -Yes (Tami Casey) - Lab Data Lab Results 11/15/24 11/15/24 11/15/24 Range/Units 21:25 21:25 : WBC 4.24 L (4.50-10.00) 10*3/uL RBC 3.03 L (4.10-5.20) 10*6/uL Hgb 10.2 L (12.0-15.0) g/dL Hct 30.8 L (37.2-46.3) % MCV 101.7 H (80.0-97.0) fL MCH 33.7 H (27.0-32.0) pg MCHC 33.1 (32.0-37.0) g/dL Plt Count 183 (140-440) 10*3/uL MPV 10.8 (9.5-12.2) fL Immature Gran % (Auto) 0.2 % Neutrophils % 65.7 % Lymphocytes % 19.1 % Monocytes % 9.9 % Eosinophils % 4.2 % Basophils % 0.9 % Immature Gran # 0.01 (0.00-0.04) 10*3/uL Neutrophils # 2.78 (1.80-7.70) 10*3/uL Lymphocytes # 0.81 L (0.90-5.00) 10*3/uL Monocytes # 0.42 (0.20-1.00) 10*3/uL Eosinophils # 0.18 (0.04-0.35) 10*3/uL Basophils # 0.04 (0.00-0.10) 10*3/uL Sodium 139 (137-145) mmol/L Potassium 5.2 H (3.5-5.1) mmol/L Chloride 107 (98-107) mmol/L Carbon Dioxide 23 (22-30) mmol/L Anion Gap 9 mmol/L BUN 23 H (7-17) mg/dL Creatinine 1.13 H (0.52-1.04) mg/dL Est GFR (CKD-EPI)AfAm 59 (>60 ml/min/1.73 sqM) Est GFR (CKD-EPI)NonAf 51 (>60 ml/min/1.73 sqM) Glucose 95 (74-99) mg/dL Plasma Lactic Acid Aristeo 1.1 (0.7-2.0) mmol/L Calcium 9.7 (8.4-10.2) mg/dL Total Bilirubin 0.6 (0.2-1.3) mg/dL AST 25 (14-36) U/L ALT 16 (4-34) U/L Alkaline Phosphatase 64 (38-126) U/L Total Protein 7.2 (6.3-8.2) g/dL Albumin 4.2 (3.5-5.0) g/dL Disposition <Michelle Quintero - Last Filed: 11/15/24 17:58> Time of Disposition: 02:47 <Tami Casey - Last Filed: 11/16/24 02:47> Clinical Impression: Peripheral arterial occlusive disease Disposition: ADMITTED IP TO THIS HOSP Condition: Serious Referrals: Dayron Villegas MD [Primary Care Provider] - 1-2 days
--- NOTE | 2024-11-15 19:12 | US ---
EXAMINATION TYPE: US venous doppler duplex LE RT DATE OF EXAM: 11/15/2024 6:42 PM COMPARISON: NONE CLINICAL INDICATION: Female, 64 years old with history of pain, swelling; swollen foot, no h/i dvt, o n thinners for afib TECHNIQUE: The lower extremity deep venous system is examined utilizing real time linear array sonog krishna with graded compression, color doppler sonography, and spectral doppler. SIDE PERFORMED: Right FINDINGS: VESSELS IMAGED: Common Femoral Vein Deep Femoral Vein Greater Saphenous Vein * Femoral Vein Popliteal Vein Small Saphenous Vein * Proximal Calf Veins (* superficial vessels) Right Leg: Negative for DVT, Color Doppler imaging shows patency of the vessels. Spectral waveforms are within normal limits. IMPRESSION: No ultrasound evidence for deep venous thrombosis. [facility], , 11/15/2024 7:09 PM
--- NOTE | 2024-11-15 19:55 | XR ---
EXAMINATION TYPE: XR foot complete RT DATE OF EXAM: 11/15/2024 7:39 PM COMPARISON: None CLINICAL INDICATION: Female, 64 years old with history of pain, swelling; PHH, pain TECHNIQUE: XR foot complete RT examined in the AP, oblique, and lateral projections. FINDINGS: Soft tissue swelling without evidence of subcutaneous gas or erosion to suggest osteomyelitis. No donta dence of any acute osseous pathology. Multifocal degeneration changes throughout the joints of the f oot with osteophyte formation and joint space narrowing. Degeneration changes of the first digit me tatarsophalangeal joint with mild joint space narrowing and osteophyte formation. IMPRESSION: 1. Soft tissue swelling without evidence of fracture or osteomyelitis. No evidence for fracture. 2. Multifocal degeneration changes throughout the joints of the foot. [facility], , 11/15/2024 7:53 PM
[2024-11-15] MEDS ORDERED: VANCOMYCIN IV PER PHARMACY 1 EACH MISC MISCELLANE PRN (20:47)
[2024-11-15] MEDS: ceFAZolin 2 GM in DEXTROSE 5% IN WATER 50 ML IVPB ONE (21:35)
[2024-11-15 21:37] LABS: Basophils # (A) 0.04 10*3/uL (0.00-0.10); Basophils % (A) 0.9 %; Eosinophils # (A) 0.18 10*3/uL (0.04-0.35); Eosinophils % (A) 4.2 %; HCT 30.8 % (37.2-46.3); HGB 10.2 g/dL (12.0-15.0); Lymphocytes # (A) 0.81 10*3/uL (0.90-5.00); Lymphocytes % (A) 19.1 %; MCH 33.7 pg (27.0-32.0); MCHC 33.1 g/dL (32.0-37.0); MCV 101.7 fL (80.0-97.0); Mean Platelet Volume 10.8 fL (9.5-12.2); Monocytes # (A) 0.42 10*3/uL (0.20-1.00); Monocytes % (A) 9.9 %; Neutrophils # (A) 2.78 10*3/uL (1.80-7.70); Neutrophils % (A) 65.7 %; Platelet Count 183 10*3/uL (140-440); RBC 3.03 10*6/uL (4.10-5.20); WBC 4.24 10*3/uL (4.50-10.00)
[2024-11-15 22:01] LABS: ALT 16 U/L (4-34); AST 25 U/L (14-36); African American GFR (CKD) 59 (>60 ml/min/1.73 sqM); Albumin 4.2 g/dL (3.5-5.0); Alkaline Phosphatase 64 U/L (38-126); Anion Gap 9 mmol/L; Blood Urea Nitrogen 23 mg/dL (7-17); Calcium 9.7 mg/dL (8.4-10.2); Carbon Dioxide 23 mmol/L (22-30); Chloride 107 mmol/L (98-107); Glucose 95 mg/dL (74-99); Non-African American GFR(CKD) 51 (>60 ml/min/1.73 sqM); Potassium 5.2 mmol/L (3.5-5.1); Sodium 139 mmol/L (137-145); Total Bilirubin 0.6 mg/dL (0.2-1.3); Total Protein 7.2 g/dL (6.3-8.2)
[2024-11-15] MEDS: HYDROmorphone 1 MG/ML 1 ML SYRINGE IVP STA (22:46)
[2024-11-15] MEDS: SODIUM CHLORIDE 0.9% 500 ML 500 ML IV ONE (23:42)
--- NOTE | 2024-11-16 02:14 | CT ---
EXAM: CT Angiography Abdomen and Pelvis With Runoff to the Lower Extremities With Intravenous Contrast CLINICAL HISTORY: CT Reason: L leg pain TECHNIQUE: Axial computed tomographic angiography images of the abdomen, pelvis and lower extremities with intravenous contrast. CTDI is 41.1 mGy and DLP is 1193.5 mGy-cm. This CT exam was performed using one or more of the following dose reduction techniques: automated exposure control, adjustment of the mA and/or kV according to patient size, and/or use of iterative reconstruction technique. MIP reconstructed images were created and reviewed. COMPARISON: No relevant prior studies available. FINDINGS: VASCULATURE: Aorta: Moderate to severe atherosclerotic changes in the inferior abdominal aorta with 2.7 cm ectasia. No abdominal aortic aneurysm. No dissection. 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 30% stenosis of the proximal superior mesenteric artery and 40-50% stenosis of the mid superior mesenteric artery. Renal arteries: Moderate stenosis of the origin of the left renal artery. Right iliac arteries: Heavily calcified plaque causing 70% stenosis of the right common iliac artery and 60-70% stenosis of the left common iliac artery. Right femoral/popliteal arteries: 90% stenosis of the right common femoral artery fill with calcified plaque. The right superficial femoral artery is occluded at its origin. There is reconstitution of a severely diseased small caliber right popliteal artery filled with densely calcified plaque. Right calf/foot arteries: There is three-vessel runoff in the proximal right calf. Probable severe stenosis of the proximal peroneal and anterior tibial arteries. The anterior tibial artery tapers off at the ankle. The posterior tibial and plantar vessels appear patent. Left iliac arteries: 60-70% right and 60% left external iliac artery stenosis. Left femoral/popliteal arteries: Severe stenosis of the origin of the left superficial femoral artery and multifocal moderate to severe stenosis throughout the mid to distal left superficial femoral artery, greatest in the adductor canal. 80% stenosis of the left common femoral artery, felt with calcified plaque. Left calf/foot arteries: In the left calf there is a normal anatomic variant of high takeoff of the anterior tibial artery from the mid popliteal artery. There is three-vessel runoff in the left calf. Lung bases: Mild to moderate emphysematous changes throughout both lungs. No acute infiltrate is seen. ABDOMEN: Liver: Unremarkable. No mass. Gallbladder and bile ducts: Unremarkable. No calcified stones. No ductal dilation. Pancreas: Unremarkable. No ductal dilation. No mass. Spleen: Unremarkable. No splenomegaly. Adrenals: Unremarkable. No mass. Kidneys and ureters: Unremarkable. No hydronephrosis. No solid mass. Stomach and bowel: Unremarkable. No obstruction. No mucosal thickening. PELVIS: Appendix: No findings to suggest acute appendicitis. Bladder: Unremarkable. No mass. Reproductive: Unremarkable as visualized. ABDOMEN, PELVIS and LOWER EXTREMITIES: Intraperitoneal space: Unremarkable. No significant fluid collection. No free air. Bones/joints: Mild to moderate degenerative changes throughout the lumbar spine. No acute fracture or subluxation is seen. Soft tissues: Unremarkable. Lymph nodes: Unremarkable. No enlarged lymph nodes. IMPRESSION: 1. Moderate to severe atherosclerotic changes in the inferior abdominal aorta with 2.7 cm ectasia. 2. 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 3. 30% stenosis of the proximal superior mesenteric artery and 40-50% stenosis of the mid superior mesenteric artery. 4. Heavily calcified plaque causing 70% stenosis of the right common iliac artery and 60-70% stenosis of the left common iliac artery. 5. 60-70% right and 60% left external iliac artery stenosis. 6. 90% stenosis of the right common femoral artery filled with calcified plaque. There is severe stenosis of the right deep femoral artery. 7. The right superficial femoral artery is occluded at its origin. There is reconstitution of a severely diseased small caliber right popliteal artery filled with densely calcified plaque. 8. There is three-vessel runoff in the proximal right calf. Probable severe stenosis of the proximal peroneal and anterior tibial arteries. The anterior tibial artery tapers off at the ankle. The posterior tibial and plantar vessels appear patent. 9. 80% stenosis of the left common femoral artery, filled with calcified plaque. 10. Severe stenosis of the origin of the left superficial femoral artery and multifocal moderate to severe stenosis throughout the mid to distal left superficial femoral artery, greatest in the adductor canal.
[2024-11-16] MEDS ORDERED: NALOXONE 0.4 MG/ML 1 ML VIAL IV PRN (02:35)
[2024-11-16] MEDS ORDERED: HEPARIN SODIUM 1,000 UN/ML (10ML VL) IV PRN (02:38)
[2024-11-16 03:34] LABS: Partial Thromboplastin Time 21.7 sec (22.0-30.0); Prothrombin Time 10.8 sec (10.0-12.5)
[2024-11-16] MEDS: HEPARIN SODIUM 1,000 UN/ML (10ML VL) IV ONE (03:37)
[2024-11-16] MEDS: HEPARIN SOD,PORK IN 0.45% NACL 25,000 UNIT in 0.45% NACL 1 250ML.BAG IV SCH (03:42)
[2024-11-16] MEDS: HYDROmorphone 1 MG/ML 1 ML SYRINGE IVP PRN (06:03)
--- NOTE | 2024-11-16 09:31 | US ---
EXAMINATION TYPE: US arterial LE multi level DATE OF EXAM: 11/16/2024 8:17 AM COMPARISONS: CTA 11/15/24 CLINICAL INDICATION: Female, 64 years old with history of PAD; CT shows severe PAD TECHNIQUE: Systolic pressures were taken of the upper and lower extremity arteries with ankle-brachia l indices and toe brachial indices calculated bilaterally. History of: Smoker: Yes Hypertension: Yes Diabetic: No Hyperlipidemia: Yes TIA/CVA: No Previous Vascular Surgery: No CAD: No PA: Yes Vascular Ulcers: Right Claudication: Bilateral Gangrene: No FINDINGS: Doppler Waveforms: Right: Monophasic Left: Monophasic Brachial Artery systolic pressure: Right: 124 Left: deferred due to IV Posterior Tibial artery systolic pressure: Right: unable to obtain doppler signals Left: 46 Dorsalis Pedis artery systolic pressure: Right: unable to obtain doppler signals Left: 46 Ankle-Brachial Indices: Right: unable to obtain doppler signals to calculate pressures Left: 0.4 IMPRESSION: SAHRA: Right: Unable to obtain Doppler signals to calculate SAHRA. Left: Severe Arterial Disease <0.5, Recommendation: Refer to vascular specialist [facility], , 11/16/2024 9:29 AM
[2024-11-16] MEDS: LACTATED RINGERS 1,000 ML IV SCH (12:13)
--- NOTE | 2024-11-16 12:16 | P.HPIM ---
History of Present Illness Patient is a pleasant 64-year-old female came in with concerns of right foot pain and swelling. Patient is on Plavix patient has a history of coronary artery disease with stents in the past patient had venous Doppler of the lower extremity which did not show any DVT foot x-ray showed multifocal degenerative changes CT angiography of the lower extremity showed significant atherosclerotic vascular disease moderate to severe atherosclerotic changes in the inferior abdominal aorta severe 90% stenosis of the origin of celiac artery 30% stenosis of the superior mesenteric artery heavily calcified plaque 70% stenosis of right common iliac 60 to 70% stenosis of the left common iliac 60 to 70% right and 60% left external iliac stenosis 90% stenosis of the right common femoral artery filled with calcified plaque, right superficial femoral artery is occluded at the origin and possible severe stenosis of the proximal peroneal and anterior tibial arteries, 80% stenosis of the left common femoral artery severe stenosis of the left superficial femoral artery. Patient had extensive peripheral vascular disease along with atherosclerotic vascular disease of abdominal vasculature. Vascular surgery was consulted patient was started on IV heparin. Patient used to be a smoker presently on 2 L of oxygen saturating 94%. REVIEW OF SYSTEMS: All other systems are negative except those mentioned in the HPI PHYSICAL EXAMINATION: GENERAL: The patient is alert and oriented x3, not in any acute distress. Well developed, well nourished. HEENT: Pupils are round and equally reacting to light. EOMI. No scleral icterus. No conjunctival pallor. Normocephalic, atraumatic. No pharyngeal erythema. No thyromegaly. CARDIOVASCULAR: S1 and S2 present. No murmurs, rubs, or gallops. PULMONARY: Chest is clear to auscultation, no wheezing or crackles. ABDOMEN: Soft, nontender, nondistended, normoactive bowel sounds. No palpable organomegaly. MUSCULOSKELETAL: No joint swelling or deformity. EXTREMITIES: No cyanosis, clubbing, or pedal edema. Patient has decreased bilateral pulses in both feet NEUROLOGICAL: Gross neurological examination did not reveal any focal deficits. SKIN: No rashes. Assessment and plan -Severe peripheral vascular disease as mentioned above: Vascular surgery was consulted patient is on IV heparin patient will undergo angiography of the peripheral vessels probably tomorrow -Coronary artery disease with stents in the past with the last stent being pretty decent patient was started on both aspirin and Plavix - COPD without any acute exacerbation - Hyperlipidemia - Hypertension For above-mentioned chronic medical problems patient was resumed on appropriate home medications DVT prophylaxis: Patient is presently on IV heparin Past Medical History Past Medical History: Chest Pain / Angina, COPD, Hyperlipidemia, Hypertension, Myocardial Infarction ([place]) Additional Past Medical History / Comment(s): murmur Last Myocardial Infarction Date:: 10/04/21 History of Any Multi-Drug Resistant Organisms: None Reported Past Surgical History: Heart Catheterization With Stent, Tonsillectomy Additional Past Surgical History / Comment(s): R oophrectomy Past Anesthesia/Blood Transfusion Reactions: No Reported Reaction Additional Past Anesthesia/Blood Transfusion Reaction / Comment(s): NO BLOOD TRANSFUSION HX Date of Last Stent Placement:: 10/04/21 Past Psychological History: No Psychological Hx Reported Smoking Status: Former smoker - Past Family History Mother Family Medical History: Myocardial Infarction ([place]) Father Family Medical History: Coronary Artery Disease (CAD) Medications and Allergies Home Medications Medication Instructions Recorded Confirmed Type lisinopriL [Zestril] 5 mg PO DAILY 07/27/22 11/16/24 History Aspirin 81 mg PO DAILY #30 tab 11/25/22 11/16/24 Rx Fluticasone/Umeclidin/Vilanter 1 puff INHALATION RT-HS 05/15/24 11/16/24 History [Trelegy Ellipta 100-62.5-25] Calcium Carbonate/Vitamin D3 2 tab PO DAILY 06/19/24 11/16/24 History [Calcium 600Mg-D3 400 Unit Sfgl] Clopidogrel [Plavix] 75 mg PO DAILY #90 tablet 09/13/24 11/16/24 Rx Acetaminophen [Tylenol] 650 mg PO Q4H PRN 11/16/24 11/16/24 History Atorvastatin [Lipitor] 40 mg PO HS 11/16/24 11/16/24 History Allergies Allergy/AdvReac Type Severity Reaction Status Date / Time No Known Allergies Allergy Verified 11/16/24 10:16 Physical Exam Vitals: Vital Signs Temp Pulse Resp BP Pulse Ox 11/16/24 08:47 98.3 F 11/16/24 07:37 100 22 120/71 94 L 11/16/24 06:00 62 18 142/76 98 11/16/24 03:50 98.3 F 64 12 130/46 97 11/16/24 03:20 98.1 F 61 20 153/68 100 11/16/24 02:13 75 20 98 11/16/24 02:03 98.0 F 71 20 114/54 88 L 11/15/24 23:52 97.7 F 73 20 121/67 93 L 11/15/24 16:58 97.6 F 63 16 136/72 97 Intake and Output 11/15/24 11/16/24 11/16/24 22:59 06:59 14:59 Other: Weight 49.895 kg Results CBC & Chem 7: 11/15/24 21:25 11/15/24 21:25 Labs: Abnormal Lab Results - Last 24 Hours (Table) 11/15/24 11/15/24 11/16/24 Range/Units 21:25 21:25 02:54 WBC 4.24 L (4.50-10.00) 10*3/uL RBC 3.03 L (4.10-5.20) 10*6/uL Hgb 10.2 L (12.0-15.0) g/dL Hct 30.8 L (37.2-46.3) % MCV 101.7 H (80.0-97.0) fL MCH 33.7 H (27.0-32.0) pg Lymphocytes # 0.81 L (0.90-5.00) 10*3/uL APTT 21.7 L (22.0-30.0) sec Potassium 5.2 H (3.5-5.1) mmol/L BUN 23 H (7-17) mg/dL Creatinine 1.13 H (0.52-1.04) mg/dL 11/16/24 Range/Units 11:06 WBC (4.50-10.00) 10*3/uL RBC (4.10-5.20) 10*6/uL Hgb (12.0-15.0) g/dL Hct (37.2-46.3) % MCV (80.0-97.0) fL MCH (27.0-32.0) pg Lymphocytes # (0.90-5.00) 10*3/uL APTT 42.2 H (22.0-30.0) sec Potassium (3.5-5.1) mmol/L BUN (7-17) mg/dL Creatinine (0.52-1.04) mg/dL
--- NOTE | 2024-11-16 12:24 | P.GSCN ---
History of Present Illness Consult date: 11/16/24 Reason for Consult: Severe peripheral arterial disease Requesting physician: Tami Casey History of present illness: This a pleasant 64-year-old female with past medical history including myocardial infarction, coronary artery disease status post stenting and multiple balloon angioplasty, hypertension, hyperlipidemia, previous smoker greater than 50 years, emphysema and carotid stenosis who came into the emergency department for increased swelling of her right foot and pain. Apparently patient had seen her PCP and wanted her to get a venous duplex and recommended she come to the emergency department. She did undergo venous duplex which was negative for DVT, she had a x-ray of the right foot with no evidence of osteomyelitis or fracture. She had a CT angiogram abdomen pelvis with runoff which showed significant bilateral lower extremity peripheral arterial disease with multiple arteries heavily calcified and stenosed with occlusion of the right SFA at its origin. Vascular surgery was consulted for further evaluation. Patient states that her right foot has become swollen and painful over the last month or so however the last 4 days seem to be getting worse. Most of her pain is at rest with i mprovement when she dangles her legs over the bed. Patient recently underwent repeat cardiac catheterization in September of this year with angioplasty and stent mid RCA. Patient currently denies any shortness of breath or chest pain, no abdominal pain nausea or vomiting. Currently has 2 L oxygen on. Currently on IV heparin continuous infusion, sensorimotor intact. Review of Systems A 14 point review systems was completed all pertinent positives and negatives as stated in the HPI. Past Medical History Past Medical History: Chest Pain / Angina, COPD, Hyperlipidemia, Hypertension, Myocardial Infarction ([place]) Additional Past Medical History / Comment(s): murmur Last Myocardial Infarction Date:: 10/04/21 History of Any Multi-Drug Resistant Organisms: None Reported Past Surgical History: Heart Catheterization With Stent, Tonsillectomy Additional Past Surgical History / Comment(s): R oophrectomy Past Anesthesia/Blood Transfusion Reactions: No Reported Reaction Additional Past Anesthesia/Blood Transfusion Reaction / Comm: NO BLOOD TRANSFUSION HX Date of Last Stent Placement:: 10/04/21 Past Psychological History: No Psychological Hx Reported Smoking Status: Former smoker - Past Family History Mother Family Medical History: Myocardial Infarction ([place]) Father Family Medical History: Coronary Artery Disease (CAD) Medications and Allergies Home Medications Medication Instructions Recorded Confirmed Type lisinopriL [Zestril] 5 mg PO DAILY 07/27/22 11/16/24 History Aspirin 81 mg PO DAILY #30 tab 11/25/22 11/16/24 Rx Fluticasone/Umeclidin/Vilanter 1 puff INHALATION RT-HS 05/15/24 11/16/24 History [Phyllis Cordov[place] 100-62.5-25] Calcium Carbonate/Vitamin D3 2 tab PO DAILY 06/19/24 11/16/24 History [Calcium 600Mg-D3 400 Unit Sfgl] Clopidogrel [Plavix] 75 mg PO DAILY #90 tablet 09/13/24 11/16/24 Rx Acetaminophen [Tylenol] 650 mg PO Q4H PRN 11/16/24 11/16/24 History Atorvastatin [Lipitor] 40 mg PO HS 11/16/24 11/16/24 History Allergies Allergy/AdvReac Type Severity Reaction Status Date / Time No Known Allergies Allergy Verified 11/16/24 10:16 Surgical - Exam Vital Signs Temp Pulse Resp BP Pulse Ox 97.6 F 63 16 136/72 97 11/15/24 16:58 11/15/24 16:58 11/15/24 16:58 11/15/24 16:58 11/15/24 16:58 General appearance: The patient is alert, oriented, appears in no acute distress. HET: Head is normocephalic and atraumatic. Pupils are equal and reactive. Neck: Supple. Bilateral carotid bruit. Heart: Regular. Lungs: Equal expansion, normal respiratory effort. Abdomen: Soft, nontender, nondistended. Extremities: Normal skin color and turgor. Right foot toes pale, decreased capillary refill. Sensorimotor intact. Nonpalpable right femoral popliteal and DP pulse. Faint left femoral pulse. Palpable radial pulses, left greater than right. Right fourth toe dorsal aspect with scabbed wound. Neurological: No focal deficits. Strength and sensation are grossly intact. Results - Labs 11/15/24:11/15/24 21: Abnormal Lab Results - Last 24 Hours (Table) 11/15/24 11/15/24 11/16/24 Range/Units :25 21: 02:54 WBC 4.24 L (4.50-10.00) 10*3/uL RBC 3.03 L (4.10-5.20) 10*6/uL Hgb 10.2 L (12.0-15.0) g/dL Hct 30.8 L (37.2-46.3) % MCV 101.7 H (80.0-97.0) fL MCH 33.7 H (27.0-32.0) pg Lymphocytes # 0.81 L (0.90-5.00) 10*3/uL APTT 21.7 L (22.0-30.0) sec Potassium 5.2 H (3.5-5.1) mmol/L BUN 23 H (7-17) mg/dL Creatinine 1.13 H (0.52-1.04) mg/dL Diabetes panel 11/15/24 Range/Units 21:25 Sodium 139 (137-145) mmol/L Potassium 5.2 H (3.5-5.1) mmol/L Chloride 107 (98-107) mmol/L Carbon Dioxide 23 (22-30) mmol/L BUN 23 H (7-17) mg/dL Creatinine 1.13 H (0.52-1.04) mg/dL Glucose 95 (74-99) mg/dL Calcium 9.7 (8.4-10.2) mg/dL AST 25 (14-36) U/L ALT 16 (4-34) U/L Alkaline Phosphatase 64 (38-126) U/L Total Protein 7.2 (6.3-8.2) g/dL Albumin 4.2 (3.5-5.0) g/dL Calcium panel 11/15/24 Range/Units 21:25 Calcium 9.7 (8.4-10.2) mg/dL Albumin 4.2 (3.5-5.0) g/dL Pituitary panel 11/15/24 Range/Units 21:25 Sodium 139 (137-145) mmol/L Potassium 5.2 H (3.5-5.1) mmol/L Chloride 107 (98-107) mmol/L Carbon Dioxide 23 (22-30) mmol/L BUN 23 H (7-17) mg/dL Creatinine 1.13 H (0.52-1.04) mg/dL Glucose 95 (74-99) mg/dL Calcium 9.7 (8.4-10.2) mg/dL Adrenal panel 11/15/24 Range/Units 21:25 Sodium 139 (137-145) mmol/L Potassium 5.2 H (3.5-5.1) mmol/L Chloride 107 (98-107) mmol/L Carbon Dioxide 23 (22-30) mmol/L BUN 23 H (7-17) mg/dL Creatinine 1.13 H (0.52-1.04) mg/dL Glucose 95 (74-99) mg/dL Calcium 9.7 (8.4-10.2) mg/dL Total Bilirubin 0.6 (0.2-1.3) mg/dL AST 25 (14-36) U/L ALT 16 (4-34) U/L Alkaline Phosphatase 64 (38-126) U/L Total Protein 7.2 (6.3-8.2) g/dL Albumin 4.2 (3.5-5.0) g/dL - Imaging Comments: CT angiogram abdomen pelvis aorta with runoff Moderate to severe arthrosclerotic change in the inferior abdominal aorta with 2 point centimeter ectasia. Severe 90% stenosis of the origin of the celiac artery. 30% stenosis of the proximal superior mesenteric artery and 40 to 50% stenosis of the mid superior mesenteric artery Heavily calcified plaque causing 70% stenosis of the right common iliac artery and 60 to 70% stenosis of the left common iliac artery 60 to 70% right and 60% left external iliac artery stenosis 90% stenosis of the right common femoral artery both with calcified plaque. Severe stenosis of the right deep femoral artery Right SFA is occluded at its origin. There is reconstitution of a severely diseased small caliber right popliteal artery filled with density calcified plaque. There is 3 vessel runoff in the proximal right calf probable severe stenosis of the proximal peroneal and anterior tibial arteries. The anterior ti bial artery tapers off at the ankle. The posterior tibial and plantar vessels appear patent. 80% stenosis of the left common femoral artery filled with calcified plaque Severe stenosis of the origin of the left SFA and multifocal moderate to severe stenosis throughout the mid to distal left superficial femoral artery, greatest in the adductor canal. Assessment and Plan Assessment: 1. Severe peripheral arterial disease with significant arterial stenosis and calcification 2. Right SFA occlusion with reconstitution 3. Right lower extremity rest pain 4. Coronary artery disease with multiple stents most recent angioplasty 09/13/2024 5. Myocardial infarction 6. Hypertension and hyperlipidemia 7. Former smoker greater than 50 years Plan: 1. Continue IV heparin drip as ordered 2. Patient may have aspirin and Plavix 3. Consult cardiology for cardiac clearance for revascularization of lower extremities, possible aortobifem bypass, bilateral iliac stents, endarterectomy of SFA, possible angioplasty/stent 4. Plan was for possible angiogram today however patient had breakfast 5. Continue with pain management 6. Timing for surgery to be determined. Will also need to await cardiac clearance. 7. Patient may have heart healthy diet Thank you for this consultation, we will continue to follow. The impression and plan of care has been dictated as directed. I performed a history and examination of this patient, discussed the same with the dictator. I agree with the dictator's note ,documented as a scribe. Any additional findings or plans will be noted.
[2024-11-16] MEDS: CLOPIDOGREL 75 MG TAB PO SCH (14:55)
[2024-11-16] MEDS: SYMBICORT 160-4.5 MCG INHALER INHALATION SCH (20:38)
[2024-11-16] MEDS: TIOTROPIUM 2.5 MCG INHALER INHALATION SCH (20:39)
[2024-11-16] MEDS: ATORVASTATIN 40 MG TAB PO SCH (21:39)
[2024-11-17 07:15] LABS: Basophils % (A) 0.6 %; HCT 27.9 % (37.2-46.3); HGB 8.9 g/dL (12.0-15.0); Lymphocytes # (A) 0.76 10*3/uL (0.90-5.00); Lymphocytes % (A) 15.9 %; MCH 33.1 pg (27.0-32.0); MCHC 31.9 g/dL (32.0-37.0); MCV 103.7 fL (80.0-97.0); Mean Platelet Volume 11.1 fL (9.5-12.2); Neutrophils # (A) 3.37 10*3/uL (1.80-7.70); Neutrophils % (A) 70.3 %; Platelet Count 149 10*3/uL (140-440); RBC 2.69 10*6/uL (4.10-5.20); RDW 13.2 % (11.5-14.5); WBC 4.79 10*3/uL (4.50-10.00)
[2024-11-17 07:16] LABS: Basophils # (A) 0.03 10*3/uL (0.00-0.10); Eosinophils # (A) 0.19 10*3/uL (0.04-0.35); Monocytes # (A) 0.43 10*3/uL (0.20-1.00)
[2024-11-17 07:43] LABS: INR 0.9 (<1.2); Partial Thromboplastin Time 38.5 sec (22.0-30.0); Prothrombin Time 10.4 sec (10.0-12.5)
[2024-11-17] MEDS: TIOTROPIUM 2.5 MCG INHALER INHALATION SCH (09:04)
--- NOTE | 2024-11-17 09:06 | P.PN ---
Subjective Progress Note Date: 11/17/24 Principal diagnosis: Peripheral arterial disease, right lower extremity pain Patient is seen and examined today as a follow-up. Patient remains on IV heparin drip. She does state that she does have some improvement in her rest pain down her right lower extremity. She denies any shortness of breath or chest pain. She did have a drop in her hemoglobin but denies any signs of bleeding. Awaiting cardiology consultation and clearance. Tentative plan for surgery on Wednesday Objective - Vital Signs Vital signs: Vital Signs Temp 98.1 F 11/17/24 04:00 Pulse 62 11/17/24 04:00 Resp 16 11/17/24 04:00 BP 121/74 11/17/24 04:00 Pulse Ox 96 11/17/24 04:00 FiO2 Intake & Output 11/16/24 11/17/24 11/17/24 18:59 06:59 18:59 Intake Total 51.887 Output Total 0 Balance 51.887 0 Weight 49.895 kg Intake: Intake, IV Titration 51.887 Amount Heparin Sod,Pork in 0.45% 51.887 NaCl 25,000 unit In 0.45 % NaCl 1 250ml.bag @ 12 UNITS/KG/HR 5.987 mls/hr IV .Q24H [facility] Rx#: [id number] Output: Urine 0 Other: Voiding Method Toilet # Voids 0 - Exam General appearance: The patient is alert, oriented, appears in no acute distress. HET: Head is normocephalic and atraumatic. Pupils are equal and reactive. Neck: Supple. Bilateral carotid bruit. Heart: Regular. Lungs: Equal expansion, normal respiratory effort. Abdomen: Soft, nontender, nondistended. Extremities: Normal skin color and turgor. Right foot toes pale, decreased capillary refill. Sensorimotor intact. Nonpalpable right femoral popliteal and DP pulse. Faint left femoral pulse. Palpable radial pulses, left greater than right. Right fourth toe dorsal aspect with scabbed wound. Neurological: No focal deficits. Strength and sensation are grossly intact. - Labs CBC & Chem 7: 11/17/24 06:33 11/15/24 21:25 Labs: Abnormal Lab Results - Last 24 Hours (Table) 11/16/24 11/17/24 11/17/24 Range/Units 11:06 06:33 06:33 RBC 2.69 L (4.10-5.20) 10*6/uL Hgb 8.9 L (12.0-15.0) g/dL Hct 27.9 L (37.2-46.3) % MCV 103.7 H (80.0-97.0) fL MCH 33.1 H (27.0-32.0) pg MCHC 31.9 L (32.0-37.0) g/dL Lymphocytes # 0.76 L (0.90-5.00) 10*3/uL APTT 42.2 H 38.5 H (22.0-30.0) sec Microbiology - Last 24 Hours (Table) 11/15/24 21:25 Blood Culture - Preliminary Blood Assessment and Plan Assessment: 1. Severe peripheral arterial disease with significant arterial stenosis and calcification 2. Right SFA occlusion with reconstitution 3. Right lower extremity rest pain 4. Coronary artery disease with multiple stents most recent angioplasty 09/13/2024 5. Myocardial infarction 6. Hypertension and hyperlipidemia 7. Former smoker greater than 50 years Plan: 1. Continue IV heparin drip as ordered. Hold heparin 4 hours prior to procedure. Discontinue at 0330 2. Hold aspirin and Plavix if okay with cardiology 3. Consult cardiology for cardiac clearance for revascularization of lower extremities, possible aortobifem bypass, bilateral iliac stents, endarterectomy of SFA, possible angioplasty/stent 4. Patient may have heart healthy diet, n.p.o. after midnight on Wednesday 5. Continue with pain management 6. Patient tentatively scheduled on 11/20/2024 for bilateral femoral endarterectomy with patch, angiogram with possible iliac stenting, possible femoral to femoral bypass pending cardiac clearance 7. Type and screen ordered for Wednesday with CBC and BMP Thank you for this consultation, we will continue to follow. The impression and plan of care has been dictated as directed. I performed a history and examination of this patient, discussed the same with the dictator. I agree with the dictator's note ,documented as a scribe. Any additional findings or plans will be noted.
[2024-11-17] MEDS: lisinopriL 5 MG TAB PO SCH (09:08)
[2024-11-17] MEDS: ASPIRIN 81 MG PO SCH (09:57)
[2024-11-17] MEDS: HYDROcodone/APAP 5-325MG 1 EACH TAB PO PRN (12:33)
--- NOTE | 2024-11-17 12:55 | P.CRDCN ---
History of Present Illness Consult date: 11/17/24 Reason for Consult (text): Cardiac clearance for peripheral artery revascularization History of present illness: This is a 64-year-old female patient of Dr. Manriquez with past medical history of CAD with multivessel stenting, dyslipidemia, hypertension, peripheral vascular disease, family history of premature coronary artery disease, severe mitral valve regurgitation, bilateral carotid artery stenosis. We have been asked to evaluate the patient for cardiac clearance for peripheral artery revascularization, history of smoking greater than 50 years. Patient was sent into the emergency center from her PCP due to right foot pain and swelling. Patient gives history that her right foot was painful and red and she did get improvement of that with antibiotics. She states that the pain has been present for the past 5 days and pain is not severe at this time. No numbness or tingling. She denies chest pain or chest pressure. No shortness of breath. Patient was seen by vascular surgery and due to significant arterial stenosis and calcification, it was recommended that patient undergo aortobifem bypass, bilateral iliac stents, endarterectomy of SFA, possible angioplasty/stent. This is scheduled for Wednesday. Patient is currently on heparin drip. Blood pressure 121/74, heart rate 62, pulse ox 94% on 2 L nasal cannula. -Venous duplex of the right lower extremity negative for DVT. -Laboratory studies: WBC 4.7, hemoglobin 8.9. Potassium 5.2, BUN 23 creatinine 1.12. -Home cardiac medications: Aspirin 81 mg daily, atorvastatin 40 mg at bedtime, Plavix 75 mg daily, lisinopril 5 mg daily. -Cardiac catheterization revealed in-stent restenosis in the mid right coronary artery. Patient was evaluated for mitral valve repair and CABG but was felt to be high risk. -PTCA of in-stent restenosis of the mid RCA with was performed on 09/13/2024. - Echocardiogram performed in the office on 10/23/2024 revealed EF 50 to 55%, mild aortic regurgitation, moderate to severe mitral digitation, mild to moderate tricuspid regurgitation, PASP 44 mmHg, mild pulmonic regurgitation. Review Of Systems: At the time of my exam: CONSTITUTIONAL: Denies fever or chills. HEENT: Denies blurred vision, vision changes, or eye pain. Denies hemoptysis CARDIOVASCULAR: Denies chest pain. Denies orthopnea. Denies PND. Denies palpitations RESPIRATORY: Denies shortness of breath. GASTROINTESTINAL: Denies abdominal pain. Denies nausea or vomiting. HEMATOLOGIC: Denies bleeding disorders. GENITOURINARY: Denies any blood in urine. SKIN: Denies puritis. Denies rash. Physical examination: Gen: This is a thin cachectic appearing 64-year-old female in no acute respiratory distress VS: reviewed HEENT: Head is atraumatic, normocephalic. Pupils equal, round. Sclerae is anicteric. NECK: Supple. No JVD. LUNGS: Clear to auscultation. No wheezes or rhonchi. No intercostal retractions. HEART: Regular rate and rhythm. Systolic ejection murmur. ABDOMEN: Soft No tenderness. EXTREMITIES: No pedal edema. No calf tenderness. NEUROLOGICAL: Patient is awake, alert and oriented x3. Assessment: Severe peripheral artery disease with significant arterial stenosis and calcification Right SFA occlusion and reconstitution Right lower extremity rest pain History of coronary artery disease with multivessel stenting including recent PTCA of in-stent restenosis of the mid RCA on 09/13/2024 Severe mitral valve regurgitation Hypertension Dyslipidemia Bilateral carotid artery stenosis Anemia Remote history of tobacco use Plan: Resume patient's home cardiac medications Patient is currently on heparin drip Increase atorvastatin to 80 mg daily Okay to hold Plavix for surgical procedure but recommend continuing aspirin 81 mg daily Patient is scheduled for bilateral femoral endarterectomy with patch, angiogram, possible iliac stenting, possible femoral to femoral bypass on Monday 11/20 She is on heparin drip No need to obtain echocardiogram as this was done in the office in October Patient is cleared by cardiology for surgical procedure as planned with known increased risk for cardiovascular complications. No absolute contraindication for surgery. Further recommendations to follow based upon clinical course Thank you kindly for this consultation. Nurse practitioner note has been reviewed, I agree with documented findings and plan of care. Patient was seen and examined. Past Medical History Past Medical History: Chest Pain / Angina, COPD, Hyperlipidemia, Hypertension, Myocardial Infarction (MS) Additional Past Medical History / Comment(s): murmur Last Myocardial Infarction Date:: 10/04/21 History of Any Multi-Drug Resistant Organisms: None Reported Past Surgical History: Heart Catheterization With Stent, Tonsillectomy Additional Past Surgical History / Comment(s): R oophrectomy Past Anesthesia/Blood Transfusion Reactions: No Reported Reaction Additional Past Anesthesia/Blood Transfusion Reaction / Comment(s): NO BLOOD TRA NSFUSION HX Date of Last Stent Placement:: 10/04/21 Past Psychological History: No Psychological Hx Reported Smoking Status: Former smoker Past Alcohol Use History: None Reported Additional Past Alcohol Use History / Comment(s): quit smoking 2 yrs ago Past Drug Use History: None Reported - Past Family History Mother Family Medical History: Myocardial Infarction (MS) Father Family Medical History: Coronary Artery Disease (CAD) Medications and Allergies Home Medications Medication Instructions Recorded Confirmed Type lisinopriL [Zestril] 5 mg PO DAILY 07/27/22 11/16/24 History Aspirin 81 mg PO DAILY #30 tab 11/25/22 11/16/24 Rx Fluticasone/Umeclidin/Vilanter 1 puff INHALATION RT-HS 05/15/24 11/16/24 History [Trelegy Ellipta 100-62.5-25] Calcium Carbonate/Vitamin D3 2 tab PO DAILY 06/19/24 11/16/24 History [Calcium 600Mg-D3 400 Unit Sfgl] Clopidogrel [Plavix] 75 mg PO DAILY #90 tablet 09/13/24 11/16/24 Rx Acetaminophen [Tylenol] 650 mg PO Q4H PRN 11/16/24 11/16/24 History Atorvastatin [Lipitor] 40 mg PO HS 11/16/24 11/16/24 History Allergies Allergy/AdvReac Type Severity Reaction Status Date / Time No Known Allergies Allergy Verified 11/16/24 10:16 Physical Exam Vitals: Vital Signs Temp Pulse Pulse Resp BP BP Pulse Ox 11/17/24 09:05 94 L 11/17/24 04:00 98.1 F 62 16 121/74 96 11/17/24 02:00 62 17 11/17/24 00:00 98.1 F 69 16 123/65 93 L 11/16/24 22:00 68 17 11/16/24 21:18 98.3 F 71 16 123/64 92 L 11/16/24 20:48 76 18 124/55 96 11/16/24 18:00 98.2 F 63 16 130/58 97 11/16/24 16:00 62 20 138/66 96 11/16/24 13:00 98.4 F 68 22 143/72 96 Intake and Output 11/16/24 11/17/24 11/17/24 22:59 06:59 14:59 Intake Total 124.629 Output Total 0 Balance 0 124.629 Intake: Intake, IV Titration 124.629 Amount Heparin Sod,Pork in 0.45% 124.629 NaCl 25,000 unit In 0.45 % NaCl 1 250ml.bag @ 12 UNITS/KG/HR 5.987 mls/hr IV .Q24H [facility] Rx#: [id number] Output: Urine 0 Other: Voiding Method Toilet Toilet # Voids 2 0 Weight 49.895 kg Results 11/17/24 06:33 11/15/24 21:25 Coagulation 11/16/24 11/17/24 Range/Units 11:06 06:33 PT 10.4 (10.0-12.5) sec APTT 42.2 H 38.5 H (22.0-30.0) sec CBC 11/17/24 Range/Units 06:33 WBC 4.79 (4.50-10.00) 10*3/uL RBC 2.69 L (4.10-5.20) 10*6/uL Hgb 8.9 L (12.0-15.0) g/dL Hct 27.9 L (37.2-46.3) % Plt Count 149 (140-440) 10*3/uL Current Medications Generic Name Dose Route Start Last Admin Trade Name Freq PRN Reason Stop Dose Admin Aspirin 81 mg 11/17/24 09:00 Aspirin 81 Mg PO DAILY [facility] Atorvastatin Calcium 40 mg 11/16/24 21:00 11/16/24 21:39 Atorvastatin 40 Mg Tab PO 40 mg HS [facility] Administration Budesonide/Formoterol Fumarate 2 puff 11/16/24 20:00 11/17/24 09:04 Symbicort 160-4.5 Mcg Inhaler INHALATION 2 puff RT-BID [facility] Administration Clopidogrel Bisulfate 75 mg 11/16/24 12:30 11/16/24 14:55 Clopidogrel 75 Mg Tab PO 75 mg DAILY [facility] Administration Heparin Sodium (Porcine) 0 unit 11/16/24 02:38 Heparin Sodium 1,000 Un/Ml (10ml Vl) IV 11/20/24 03:30 PER PROTOCOL PRN Low PTT Protocol Hydromorphone HCl 1 mg 11/16/24 02:35 11/17/24 09:08 Hydromorphone 1 Mg/Ml 1 Ml Syringe IVP 1 mg Q3HR PRN Administration Severe Pain (Scale 7 to 10) Heparin Sodium/Sodium Chloride 250 mls @ 5.987 mls/hr 11/16/24 02:45 11/17/24 09:11 25,000 unit/ Sodium Chloride IV 11/20/24 03:30 14 units/kg/hr .Q24H [facility] 6.985 mls/hr Titration Protocol 12 UNITS/KG/HR Lactated Ringer's 1,000 mls @ 50 mls/hr 11/16/24 11:15 11/16/24 23:06 Lactated Ringers IV 50 mls/hr .Q20H [facility] Administration Lisinopril 5 mg 11/17/24 09:00 11/17/24 09:08 Lisinopril 5 Mg Tab PO 5 mg DAILY [facility] Administration Naloxone HCl 0.2 mg 11/16/24 02:35 Naloxone 0.4 Mg/Ml 1 Ml Vial IV Q2M PRN Opioid Reversal Tiotropium [place] 2 puff 11/17/24 08:00 11/17/24 09:04 Tiotropium 2.5 Mcg Inhaler INHALATION 2 puff RT-DAILY [facility] Administration Intake and Output 11/16/24 11/17/24 11/17/24 22:59 06:59 14:59 Intake Total 124.629 Output Total 0 Balance 0 124.629 Intake: Intake, IV Titration 124.629 Amount Heparin Sod,Pork in 0.45% 124.629 NaCl 25,000 unit In 0.45 % NaCl 1 250ml.bag @ 12 UNITS/KG/HR 5.987 mls/hr IV .Q24H [facility] Rx#: [id number] Output: Urine 0 Other: Voiding Method Toilet Toilet # Voids 2 0 Weight 49.895 kg 11/17/24 06:33 11/15/24 21:25
[2024-11-17] MEDS: ONDANSETRON 4 MG/2 ML VIAL IVP PRN (15:30)
[2024-11-17] MEDS ORDERED: ACETAMINOPHEN TAB 325 MG TAB PO PRN (18:46)
[2024-11-17] MEDS: ATORVASTATIN 80 MG TAB PO SCH (19:52)
--- NOTE | 2024-11-17 23:49 | P.PN ---
Subjective Progress Note Date: 11/16/24 Patient is a pleasant 64-year-old female came in with concerns of right foot pain and swelling. Patient is on Plavix patient has a history of coronary artery disease with stents in the past patient had venous Doppler of the lower extremity which did not show any DVT foot x-ray showed multifocal degenerative changes CT angiography of the lower extremity showed significant atherosclerotic vascular disease moderate to severe atherosclerotic changes in the inferior abdominal aorta severe 90% stenosis of the origin of celiac artery 30% stenosis of the superior mesenteric artery heavily calcified plaque 70% stenosis of right common iliac 60 to 70% stenosis of the left common iliac 60 to 70% right and 60% left external iliac stenosis 90% stenosis of the right common femoral artery filled with calcified plaque, right superficial femoral artery is occluded at the origin and possible severe stenosis of the proximal peroneal and anterior tibial arteries, 80% stenosis of the left common femoral artery severe stenosis of the left superficial femoral artery. Patient had extensive peripheral vascular disease along with atherosclerotic vascular disease of abdominal vasculature. Vascular surgery was consulted patient was started on IV heparin. Patient used to be a smoker presently on 2 L of oxygen saturating 94%. 11/17/2024 Patient is seen in follow-up today with vascular surgery following. Patient is continued on heparin along with aspirin and Plavix and will continue with plans on surgical intervention this Wednesday. Patient continues to report significant right foot pain although it is minimally improved from previous. Patient does have continued swelling at this time. Cardiology has been consulted for surgical clearance. Hemoglobin is noted to be 8.9 today with previous 10.2 with no active bleeding noted. Will monitor closely. Patient is to be n.p.o. on Wednesday night for surgical intervention Wednesday. Patient was having some nausea today and was shortly after Suzan, recommending limiting IV narcotics and will add Tylenol and oral [place]. Patient will need PT/OT therapy evaluation postsurgery. Review of systems: Constitutional: No reports of fatigue, fever, or chills Cardiovascular: No reports of chest pain or palpitations Respiratory: No reports of shortness of breath or cough GI: reports of nausea, no vomiting, or diarrhea : No reports of dysuria or retention Neurovascular: reports of generalized weakness All medications have been reviewed PHYSICAL EXAMINATION: GENERAL: The patient is alert and oriented x3, not in any acute distress. Well developed, thin built, elderly appearing HEENT: Pupils are round and equally reacting to light. EOMI. No scleral icterus. No conjunctival pallor. Normocephalic, atraumatic. No pharyngeal erythema. No thyromegaly. CARDIOVASCULAR: S1 and S2 present. No murmurs, rubs, or gallops. PULMONARY: Diminished breath sounds bilaterally otherwise chest is clear to auscultation, no wheezing or crackles. ABDOMEN: Soft, nontender, thin, nondistended, normoactive bowel sounds. No palpable organomegaly. MUSCULOSKELETAL: No joint swelling or deformity. EXTREMITIES: No cyanosis, clubbing, or pedal edema. Patient has decreased bilateral pulses in both feet, right extremity is discolored with decreased pulses noted more so on the right NEUROLOGICAL: Gross neurological examination did not reveal any focal deficits. Diffusely weak SKIN: No rashes. Assessment: -Severe peripheral vascular disease as mentioned above: Vascular surgery following and planning on surgical intervention on 11/20/2024 -History of right SFA occlusion with reconstitution -Coronary artery disease with stents in the past, is maintained on aspirin and Plavix - COPD without any acute exacerbation - Hyperlipidemia - Hypertension - Former smoker For above-mentioned chronic medical problems patient was resumed on appropriate home medications DVT prophylaxis: Patient is presently on IV heparin GI prophylaxis Full code Plan: Patient will continue on heparin with vascular surgery consulted and following planning on revascularization of lower extremities with possible bypass arterectomy and angioplasty with stenting and will need cardiology clearance Cardiology has been consulted and is continued on aspirin and Plavix and vascular surgery reports okay to hold if cleared by cardiology and will be continued on IV heparin Patient with significant weakness, recommend PT/OT therapy once cleared by vascular surgery postsurgery Follow-up on repeat labs and replace electrolytes per protocol Monitor hemoglobin closely The impression and plan of care has been dictated by Catherine Dominique, Nurse Practitioner as directed. Dr. Melo MD I have performed a history and examination and MDM of this patient, discussed the same with the dictator, and agree with the dictator's assessment and plan as written ,documented as a scribe. Based on total visit time, I have performed more than 50% of the visit. Objective - Vital Signs Vital signs: Vital Signs Temp 98.1 F 11/17/24 04:00 Pulse 62 11/17/24 04:00 Resp 16 11/17/24 04:00 BP 121/74 11/17/24 04:00 Pulse Ox 94 L 11/17/24 09:05 FiO2 Intake & Output 11/16/24 11/17/24 11/17/24 18:59 06:59 18:59 Intake Total 51.887 124.629 Output Total 0 Balance 51.887 0 124.629 Weight 49.895 kg Intake: Intake, IV Titration 51.887 124.629 Amount Heparin Sod,Pork in 0.45% 51.887 124.629 NaCl 25,000 unit In 0.45 % NaCl 1 250ml.bag @ 12 UNITS/KG/HR 5.987 mls/hr IV .Q24H [facility] Rx#: [id number] Output: Urine 0 Other: Voiding Method Toilet # Voids 0 - Labs CBC & Chem 7: 11/17/24 06:33 11/15/24 21:25 Labs: Abnormal Lab Results - Last 24 Hours (Table) 11/16/24 11/17/24 11/17/24 Range/Units 11:06 06:33 06:33 RBC 2.69 L (4.10-5.20) 10*6/uL Hgb 8.9 L (12.0-15.0) g/dL Hct 27.9 L (37.2-46.3) % MCV 103.7 H (80.0-97.0) fL MCH 33.1 H (27.0-32.0) pg MCHC 31.9 L (32.0-37.0) g/dL Lymphocytes # 0.76 L (0.90-5.00) 10*3/uL APTT 42.2 H 38.5 H (22.0-30.0) sec Microbiology - Last 24 Hours (Table) 11/15/24 21:25 Blood Culture - Preliminary Blood
[2024-11-18] MEDS: PANTOPRAZOLE 40 MG TABLET PO SCH (06:09)
[2024-11-18 06:14] LABS: MCHC 32.1 g/dL (32.0-37.0); MCV 105.7 fL (80.0-97.0); Platelet Count 151 10*3/uL (140-440); RBC 2.65 10*6/uL (4.10-5.20); RDW 13.2 % (11.5-14.5)
[2024-11-18 06:30] LABS: African American GFR (CKD) 59 (>60 ml/min/1.73 sqM); Anion Gap 10 mmol/L; Blood Urea Nitrogen 19 mg/dL (7-17); Calcium 9.1 mg/dL (8.4-10.2); Carbon Dioxide 25 mmol/L (22-30); Chloride 103 mmol/L (98-107); Glucose 84 mg/dL (74-99); Magnesium 1.8 mg/dL (1.6-2.3); Non-African American GFR(CKD) 51 (>60 ml/min/1.73 sqM); Sodium 138 mmol/L (137-145)
--- NOTE | 2024-11-18 08:58 | P.PN ---
Subjective Progress Note Date: 11/18/24 Principal diagnosis: Severe and iliac and femoral arterial occlusive disease with secondary advanced arterial ischemia of the bilateral lower extremities. Overall the patient states she feels comfortable. She understands surgery is scheduled for November 20. Objective - Vital Signs Vital signs: Vital Signs Temp 98.6 F 11/18/24 04:00 Pulse 63 11/18/24 04:00 Resp 18 11/18/24 04:00 BP 96/60 11/18/24 04:00 Pulse Ox 92 L 11/18/24 04:00 FiO2 Intake & Output 11/17/24 11/18/24 11/18/24 18:59 06:59 18:59 Intake Total 645.100 240 Output Total 600 Balance 645.100 -600 240 Weight 49.895 kg 50.8 kg Intake: Intake, IV Titration 169.100 Amount Heparin Sod,Pork in 0.45% 169.100 NaCl 25,000 unit In 0.45 % NaCl 1 250ml.bag @ 12 UNITS/KG/HR 5.987 mls/hr IV .Q24H [facility] Rx#: [id number] Oral 476 240 Output: Urine 600 Other: Voiding Method Toilet Toilet # Voids 1 3 - Exam Patient is awake, alert in no apparent distress. Patient is quite comfortable. Physical examination remains unchanged. Once again reviewed with the patient plans for surgical intervention on November 20. All questions were answered to patient's satisfaction. - Labs CBC & Chem 7: 11/18/24 05:54 11/18/24 05:54 Labs: Abnormal Lab Results - Last 24 Hours (Table) 11/17/24 11/18/24 11/18/24 Range/Units 16:56 05:54 05:54 RBC 2.65 L (4.10-5.20) 10*6/uL Hgb 9.0 L (12.0-15.0) g/dL Hct 28.0 L (37.2-46.3) % MCV 105.7 H (80.0-97.0) fL MCH 34.0 H (27.0-32.0) pg APTT 46.3 H (22.0-30.0) sec BUN 19 H (7-17) mg/dL Creatinine 1.13 H (0.52-1.04) mg/dL 11/18/24 Range/Units 06:47 RBC (4.10-5.20) 10*6/uL Hgb (12.0-15.0) g/dL Hct (37.2-46.3) % MCV (80.0-97.0) fL MCH (27.0-32.0) pg APTT 56.4 H (22.0-30.0) sec BUN (7-17) mg/dL Creatinine (0.52-1.04) mg/dL Microbiology - Last 24 Hours (Table) 11/15/24 21:25 Blood Culture - Preliminary Blood Assessment and Plan Assessment: Severe bilateral lower extremity arterial occlusive disease. Plan: Operative intervention scheduled for November 20 at 7:30 AM.
[2024-11-18] MEDS: polyethylene glycoL 3350 17 GM POWD.PACK PO SCH (13:51)
--- NOTE | 2024-11-18 14:34 | P.PN ---
Subjective Progress Note Date: 11/18/24 Patient is a pleasant 64-year-old female came in with concerns of right foot pain and swelling. Patient is on Plavix patient has a history of coronary artery disease with stents in the past patient had venous Doppler of the lower extremity which did not show any DVT foot x-ray showed multifocal degenerative changes CT angiography of the lower extremity showed significant atherosclerotic vascular disease moderate to severe atherosclerotic changes in the inferior abdominal aorta severe 90% stenosis of the origin of celiac artery 30% stenosis of the superior mesenteric artery heavily calcified plaque 70% stenosis of right common iliac 60 to 70% stenosis of the left common iliac 60 to 70% right and 60% left external iliac stenosis 90% stenosis of the right common femoral artery filled with calcified plaque, right superficial femoral artery is occluded at the origin and possible severe stenosis of the proximal peroneal and anterior tibial arteries, 80% stenosis of the left common femoral artery severe stenosis of the left superficial femoral artery. Patient had extensive peripheral vascular disease along with atherosclerotic vascular disease of abdominal vasculature. Vascular surgery was consulted patient was started on IV heparin. Patient used to be a smoker presently on 2 L of oxygen saturating 94%. 11/17/2024 Patient is seen in follow-up today with vascular surgery following. Patient is continued on heparin along with aspirin and Plavix and will continue with plans on surgical intervention this Wednesday. Patient continues to report significant right foot pain although it is minimally improved from previous. Patient does have continued swelling at this time. Cardiology has been consulted for surgical clearance. Hemoglobin is noted to be 8.9 today with previous 10.2 with no active bleeding noted. Will monitor closely. Patient is to be n.p.o. on Wednesday night for surgical intervention Wednesday. Patient was having some nausea today and was shortly after Suzan, recommending limiting IV narcotics and will add Tylenol and oral Treynor. Patient will need PT/OT therapy evaluation postsurgery. 11/18/2024 Patient is evaluated today in follow-up on the medical floor. Patient is currently pending vascular intervention on Wednesday. She continues on IV heparin. Cardiology eval the patient and has cleared for surgery. No acute complaints today. Hemoglobin remained stable at 9.0, BUN of 19 creatinine 1.13 . Review of systems: Constitutional: No reports of fatigue, fever, or chills Cardiovascular: No reports of chest pain or palpitations Respiratory: No reports of shortness of breath or cough GI: reports of nausea, no vomiting, or diarrhea : No reports of dysuria or retention Neurovascular: reports of generalized weakness All medications have been reviewed PHYSICAL EXAMINATION: GENERAL: The patient is alert and oriented x3, not in any acute distress. Well developed, thin built, elderly appearing HEENT: Pupils are round and equally reacting to light. EOMI. No scleral icterus. No conjunctival pallor. Normocephalic, atraumatic. No pharyngeal erythema. No thyromegaly. CARDIOVASCULAR: S1 and S2 present. No murmurs, rubs, or gallops. PULMONARY: Diminished breath sounds bilaterally otherwise chest is clear to auscultation, no wheezing or crackles. ABDOMEN: Soft, nontender, thin, nondistended, normoactive bowel sounds. No palpable organomegaly. MUSCULOSKELETAL: No joint swelling or deformity. EXTREMITIES: No cyanosis, clubbing, or pedal edema. Patient has decreased bilateral pulses in both feet, right extremity is discolored with decreased pulses noted more so on the right NEUROLOGICAL: Gross neurological examination did not reveal any focal deficits. Diffusely weak SKIN: No rashes. Assessment: -Severe peripheral vascular disease as mentioned above: Vascular surgery following and planning on surgical intervention on 11/20/2024 -History of right SFA occlusion with reconstitution -Coronary artery disease with stents in the past, is maintained on aspirin and Plavix - COPD without any acute exacerbation - Hyperlipidemia - Hypertension - Former smoker For above-mentioned chronic medical problems patient was resumed on appropriate home medications DVT prophylaxis: Patient is presently on IV heparin GI prophylaxis Full code Plan: Patient will continue on heparin with vascular surgery consulted and following planning on revascularization of lower extremities with possible bypass arterectomy and angioplasty with stenting and will need cardiology clearance Cardiology has been consulted and is continued on aspirin and Plavix and vascular surgery reports okay to hold if cleared by cardiology and will be continued on IV heparin Patient with significant weakness, recommend PT/OT therapy once cleared by vascular surgery postsurgery Follow-up on repeat labs and replace electrolytes per protocol Monitor hemoglobin closely The impression and plan of care has been dictated by Gunjan Pascual, Nurse Practitioner as directed. Dr. Melo MD I have performed a history and physical examination and medical decision making of this patient, discussed the same with the dictator, and agree with the dictators assessment and plan as written, documented as a scribe. Based on total visit time, I have performed more than 50% of this visit. Objective - Vital Signs Vital signs: Vital Signs Temp 98 F 11/18/24 11:06 Pulse 74 11/18/24 11:06 Resp 20 11/18/24 11:06 BP 128/56 11/18/24 11:06 Pulse Ox 91 L 11/18/24 11:06 FiO2 Intake & Output 11/17/24 11/18/24 11/18/24 18:59 06:59 18:59 Intake Total 645.100 240 Output Total 600 200 Balance 645.100 -600 40 Weight 49.895 kg 50.8 kg Intake: Intake, IV Titration 169.100 Amount Heparin Sod,Pork in 0.45% 169.100 NaCl 25,000 unit In 0.45 % NaCl 1 250ml.bag @ 12 UNITS/KG/HR 5.987 mls/hr IV .Q24H [facility] Rx#: [id number] Oral 476 240 Output: Urine 600 200 Other: Voiding Method Toilet Toilet # Voids 1 3 - Labs CBC & Chem 7: 11/18/24 05:54 11/18/24 05:54 Labs: Abnormal Lab Results - Last 24 Hours (Table) 11/17/24 11/18/24 11/18/24 Range/Units 16:56 05:54 05:54 RBC 2.65 L (4.10-5.20) 10*6/uL Hgb 9.0 L (12.0-15.0) g/dL Hct 28.0 L (37.2-46.3) % MCV 105.7 H (80.0-97.0) fL MCH 34.0 H (27.0-32.0) pg APTT 46.3 H (22.0-30.0) sec BUN 19 H (7-17) mg/dL Creatinine 1.13 H (0.52-1.04) mg/dL 11/18/24 Range/Units 06:47 RBC (4.10-5.20) 10*6/uL Hgb (12.0-15.0) g/dL Hct (37.2-46.3) % MCV (80.0-97.0) fL MCH (27.0-32.0) pg APTT 56.4 H (22.0-30.0) sec BUN (7-17) mg/dL Creatinine (0.52-1.04) mg/dL Microbiology - Last 24 Hours (Table) 11/15/24 21:25 Blood Culture - Preliminary Blood Assessment and Plan Time with Patient: Less than 30
--- NOTE | 2024-11-18 16:54 | P.PN ---
Subjective Progress Note Date: 11/18/24 History of present illness: This is a 64-year-old female patient of Dr. Manriquez with past medical history of CAD with multivessel stenting, dyslipidemia, hypertension, peripheral vascular disease, family history of premature coronary artery disease, severe mitral valve regurgitation, bilateral carotid artery stenosis. We have been asked to evaluate the patient for cardiac clearance for peripheral artery revascularization, history of smoking greater than 50 years. Patient was sent into the emergency center from her PCP due to right foot pain and swelling. Patient gives history that her right foot was painful and red and she did get improvement of that with antibiotics. She states that the pain has been present for the past 5 days and pain is not severe at this time. No numbness or tingling. She denies chest pain or chest pressure. No shortness of breath. Patient was seen by vascular surgery and due to significant arterial stenosis and calcification, it was recommended that patient undergo aortobifem bypass, bilateral iliac stents, endarterectomy of SFA, possible angioplasty/stent. This is scheduled for Wednesday. Patient is currently on heparin drip. Blood pressure 121/74, heart rate 62, pulse ox 94% on 2 L nasal cannula. -Venous duplex of the right lower extremity negative for DVT. -Laboratory studies: WBC 4.7, hemoglobin 8.9. Potassium 5.2, BUN 23 creatinine 1.12. -Home cardiac medications: Aspirin 81 mg daily, atorvastatin 40 mg at bedtime, Plavix 75 mg daily, lisinopril 5 mg daily. -Cardiac catheterization revealed in-stent restenosis in the mid right coronary artery. Patient was evaluated for mitral valve repair and CABG but was felt to be high risk. -PTCA of in-stent restenosis of the mid RCA with was performed on 09/13/2024. - Echocardiogram performed in the office on 10/23/2024 revealed EF 50 to 55%, mild aortic regurgitation, moderate to severe mitral digitation, mild to moderate tricuspid regurgitation, PASP 44 mmHg, mild pulmonic regurgitation. Progress note 11/18/2024 BP 118/55, heart rate 66 bpm Hemoglobin 9, BUN 19, creatinine 1.13 No new active chest pain chest pressure. No new cardiovascular events, sinus rhythm on telemetry Physical examination: Gen: This is a thin cachectic appearing 64-year-old female in no acute respiratory distress VS: reviewed HEENT: Head is atraumatic, normocephalic. Pupils equal, round. Sclerae is anicteric. NECK: Supple. No JVD. LUNGS: Clear to auscultation. No wheezes or rhonchi. No intercostal retractions. HEART: Regular rate and rhythm. Systolic ejection murmur. ABDOMEN: Soft No tenderness. EXTREMITIES: No pedal edema. No calf tenderness. NEUROLOGICAL: Patient is awake, alert and oriented x3. Assessment: Severe peripheral artery disease with significant arterial stenosis and calcification Right SFA occlusion and reconstitution Right lower extremity rest pain History of coronary artery disease with multivessel stenting including recent PTCA of in-stent restenosis of the mid RCA on 09/13/2024 Severe mitral valve regurgitation Hypertension Dyslipidemia Bilateral carotid artery stenosis Anemia Remote history of tobacco use Plan: Resume patient's home cardiac medications Patient is currently on heparin drip Increase atorvastatin to 80 mg daily Okay to hold Plavix for surgical procedure but recommend continuing aspirin 81 mg daily Patient is scheduled for bilateral femoral endarterectomy with patch, angiogram, possible iliac stenting, possible femoral to femoral bypass on Monday 11/20 She is on heparin drip No need to obtain echocardiogram as this was done in the office in October Patient is cleared by cardiology for surgical procedure as planned with known increased risk for cardiovascular complications. No absolute contraindication for surgery. Further recommendations to follow based upon clinical course Objective - Vital Signs Vital signs: Vital Signs Temp 98.1 F 11/18/24 15:57 Pulse 66 11/18/24 15:57 Resp 20 11/18/24 15:57 BP 118/55 11/18/24 15:57 Pulse Ox 92 L 11/18/24 15:57 FiO2 Intake & Output 11/17/24 11/18/24 11/18/24 18:59 06:59 18:59 Intake Total 645.100 240 Output Total 600 800 Balance 645.100 -600 -560 Weight 49.895 kg 50.8 kg Intake: Intake, IV Titration 169.100 Amount Heparin Sod,Pork in 0.45% 169.100 NaCl 25,000 unit In 0.45 % NaCl 1 250ml.bag @ 12 UNITS/KG/HR 5.987 mls/hr IV .Q24H [facility] Rx#: [id number] Oral 476 240 Output: Urine 600 800 Other: Voiding Method Toilet Toilet # Voids 1 3 - Labs CBC & Chem 7: 11/18/24 05:54 11/18/24 05:54 Labs: Abnormal Lab Results - Last 24 Hours (Table) 11/17/24 11/18/24 11/18/24 Range/Units 16:56 05:54 05:54 RBC 2.65 L (4.10-5.20) 10*6/uL Hgb 9.0 L (12.0-15.0) g/dL Hct 28.0 L (37.2-46.3) % MCV 105.7 H (80.0-97.0) fL MCH 34.0 H (27.0-32.0) pg APTT 46.3 H (22.0-30.0) sec BUN 19 H (7-17) mg/dL Creatinine 1.13 H (0.52-1.04) mg/dL 11/18/24 Range/Units 06:47 RBC (4.10-5.20) 10*6/uL Hgb (12.0-15.0) g/dL Hct (37.2-46.3) % MCV (80.0-97.0) fL MCH (27.0-32.0) pg APTT 56.4 H (22.0-30.0) sec BUN (7-17) mg/dL Creatinine (0.52-1.04) mg/dL Microbiology - Last 24 Hours (Table) 11/15/24 21:25 Blood Culture - Preliminary Blood
[2024-11-19] MEDS ORDERED: LACTULOSE 20 GM/30 ML CUP PO PRN (06:58)
[2024-11-19 07:44] LABS: HCT 25.5 % (37.2-46.3); HGB 8.1 g/dL (12.0-15.0); Immature Platelet Fraction 5.2 % (1.1-6.1); MCH 32.9 pg (27.0-32.0); MCHC 31.8 g/dL (32.0-37.0); MCV 103.7 fL (80.0-97.0); Mean Platelet Volume 11.3 fL (9.5-12.2); Platelet Count 129 10*3/uL (140-440); RBC 2.46 10*6/uL (4.10-5.20); WBC 4.28 10*3/uL (4.50-10.00)
[2024-11-19 08:01] LABS: African American GFR (CKD) 62 (>60 ml/min/1.73 sqM); Anion Gap 5 mmol/L; Blood Urea Nitrogen 19 mg/dL (7-17); Carbon Dioxide 29 mmol/L (22-30); Chloride 103 mmol/L (98-107); Glucose 94 mg/dL (74-99); Non-African American GFR(CKD) 54 (>60 ml/min/1.73 sqM); Potassium 4.4 mmol/L (3.5-5.1); Sodium 137 mmol/L (137-145)
--- NOTE | 2024-11-19 16:04 | P.PN ---
Subjective Progress Note Date: 11/19/24 History of present illness: This is a 64-year-old female patient of Dr. Manirquez with past medical history of CAD with multivessel stenting, dyslipidemia, hypertension, peripheral vascular disease, family history of premature coronary artery disease, severe mitral valve regurgitation, bilateral carotid artery stenosis. We have been asked to evaluate the patient for cardiac clearance for peripheral artery revascularization, history of smoking greater than 50 years. Patient was sent into the emergency center from her PCP due to right foot pain and swelling. Patient gives history that her right foot was painful and red and she did get improvement of that with antibiotics. She states that the pain has been present for the past 5 days and pain is not severe at this time. No numbness or tingling. She denies chest pain or chest pressure. No shortness of breath. Patient was seen by vascular surgery and due to significant arterial stenosis and calcification, it was recommended that patient undergo aortobifem bypass, bilateral iliac stents, endarterectomy of SFA, possible angioplasty/stent. This is scheduled for Wednesday. Patient is currently on heparin drip. Blood pressure 121/74, heart rate 62, pulse ox 94% on 2 L nasal cannula. -Venous duplex of the right lower extremity negative for DVT. -Laboratory studies: WBC 4.7, hemoglobin 8.9. Potassium 5.2, BUN 23 creatinine 1.12. -Home cardiac medications: Aspirin 81 mg daily, atorvastatin 40 mg at bedtime, Plavix 75 mg daily, lisinopril 5 mg daily. -Cardiac catheterization revealed in-stent restenosis in the mid right coronary artery. Patient was evaluated for mitral valve repair and CABG but was felt to be high risk. -PTCA of in-stent restenosis of the mid RCA with was performed on 09/13/2024. - Echocardiogram performed in the office on 10/23/2024 revealed EF 50 to 55%, mild aortic regurgitation, moderate to severe mitral digitation, mild to moderate tricuspid regurgitation, PASP 44 mmHg, mild pulmonic regurgitation. Progress note 11/18/2024 BP 118/55, heart rate 66 bpm Hemoglobin 9, BUN 19, creatinine 1.13 No new active chest pain chest pressure. No new cardiovascular events, sinus rhythm on telemetry 11/19/2024 BP 105/56, heart rate 77 bpm Hemoglobin 8.1, creatinine 1.08, stable, no acute signs of bleeding No acute cardiac and vascular events overnight Sinus rhythm on telemetry Physical examination: Gen: This is a thin cachectic appearing 64-year-old female in no acute respiratory distress VS: reviewed HEENT: Head is atraumatic, normocephalic. Pupils equal, round. Sclerae is anicteric. NECK: Supple. No JVD. LUNGS: Clear to auscultation. No wheezes or rhonchi. No intercostal retractions. HEART: Regular rate and rhythm. Systolic ejection murmur. ABDOMEN: Soft No tenderness. EXTREMITIES: No pedal edema. No calf tenderness. NEUROLOGICAL: Patient is awake, alert and oriented x3. Assessment: Severe peripheral artery disease with significant arterial stenosis and calcification Right SFA occlusion and reconstitution Right lower extremity rest pain History of coronary artery disease with multivessel stenting including recent PTCA of in-stent restenosis of the mid RCA on 09/13/2024 Severe mitral valve regurgitation Hypertension Dyslipidemia Bilateral carotid artery stenosis Anemia Remote history of tobacco use Plan: Resume patient's home cardiac medications Patient is currently on heparin drip Increase atorvastatin to 80 mg daily Okay to hold Plavix for surgical procedure but recommend continuing aspirin 81 mg daily Patient is scheduled for bilateral femoral endarterectomy with patch, angiogram, possible iliac stenting, possible femoral to femoral bypass on Monday 11/20 She is on heparin drip No need to obtain echocardiogram as this was done in the office in October Patient is cleared by cardiology for surgical procedure as planned with known increased risk for cardiovascular complications. No absolute contraindication for surgery. Further recommendations to follow based upon clinical course Objective - Vital Signs Vital signs: Vital Signs Temp 97.8 F 11/19/24 15:31 Pulse 77 11/19/24 15:31 Resp 20 11/19/24 15:31 BP 105/56 11/19/24 15:31 Pulse Ox 91 L 11/19/24 15:31 FiO2 Intake & Output 11/18/24 11/19/24 11/19/24 18:59 06:59 18:59 Intake Total 1163.88 835.744 480 Output Total 3552 630 9642 Balance -36.12 135.744 -1070 Weight 50.7 kg Intake: IV 83.88 Heparin Sod,Pork in 0.45% 83.88 NaCl 25,000 unit In 0.45 % NaCl 1 250ml.bag @ 12 UNITS/KG/HR 5.987 mls/hr IV .Q24H [facility] Rx#: [id number] Intake, IV Titration 600 235.744 Amount Heparin Sod,Pork in 0.45% 235.744 NaCl 25,000 unit In 0.45 % NaCl 1 250ml.bag @ 12 UNITS/KG/HR 5.987 mls/hr IV .Q24H [facility] Rx#: [id number] Lactated Ringers 1,000 ml 600 @ 50 mls/hr IV .Q20H [facility] Rx#:[id number] Oral 480 600 480 Output: Urine 9678 196 9135 Other: Voiding Method Toilet # Voids 2 - Labs CBC & Chem 7: 11/19/24 07:03 11/19/24 07:03 Labs: Abnormal Lab Results - Last 24 Hours (Table) 11/19/24 11/19/24 11/19/24 Range/Units 07:03 07:03 07:03 WBC 4.28 L (4.50-10.00) 10*3/uL RBC 2.46 L (4.10-5.20) 10*6/uL Hgb 8.1 L (12.0-15.0) g/dL Hct 25.5 L (37.2-46.3) % MCV 103.7 H (80.0-97.0) fL MCH 32.9 H (27.0-32.0) pg MCHC 31.8 L (32.0-37.0) g/dL Plt Count 129 L (140-440) 10*3/uL APTT 50.2 H (22.0-30.0) sec BUN 19 H (7-17) mg/dL Creatinine 1.08 H (0.52-1.04) mg/dL Microbiology - Last 24 Hours (Table) 11/15/24 21:25 Blood Culture - Preliminary Blood
--- NOTE | 2024-11-19 22:50 | P.PN ---
Subjective Progress Note Date: 11/19/24 Patient is a pleasant 64-year-old female came in with concerns of right foot pain and swelling. Patient is on Plavix patient has a history of coronary artery disease with stents in the past patient had venous Doppler of the lower extremity which did not show any DVT foot x-ray showed multifocal degenerative changes CT angiography of the lower extremity showed significant atherosclerotic vascular disease moderate to severe atherosclerotic changes in the inferior abdominal aorta severe 90% stenosis of the origin of celiac artery 30% stenosis of the superior mesenteric artery heavily calcified plaque 70% stenosis of right common iliac 60 to 70% stenosis of the left common iliac 60 to 70% right and 60% left external iliac stenosis 90% stenosis of the right common femoral artery filled with calcified plaque, right superficial femoral artery is occluded at the origin and possible severe stenosis of the proximal peroneal and anterior tibial arteries, 80% stenosis of the left common femoral artery severe stenosis of the left superficial femoral artery. Patient had extensive peripheral vascular disease along with atherosclerotic vascular disease of abdominal vasculature. Vascular surgery was consulted patient was started on IV heparin. Patient used to be a smoker presently on 2 L of oxygen saturating 94%. 11/17/2024 Patient is seen in follow-up today with vascular surgery following. Patient is continued on heparin along with aspirin and Plavix and will continue with plans on surgical intervention this Wednesday. Patient continues to report significant right foot pain although it is minimally improved from previous. Patient does have continued swelling at this time. Cardiology has been consulted for surgical clearance. Hemoglobin is noted to be 8.9 today with previous 10.2 with no active bleeding noted. Will monitor closely. Patient is to be n.p.o. on Wednesday night for surgical intervention Wednesday. Patient was having some nausea today and was shortly after Dilaudid, recommending limiting IV narcotics and will add Tylenol and oral [place]. Patient will need PT/OT therapy evaluation postsurgery. 11/18/2024 Patient is evaluated today in follow-up on the medical floor. Patient is currently pending vascular intervention on Wednesday. She continues on IV heparin. Cardiology eval the patient and has cleared for surgery. No acute complaints today. Hemoglobin remained stable at 9.0, BUN of 19 creatinine 1.13. 11/19/2024 Patient evaluated today in follow up. Family at the bedside. Patient has been up ambulating. Still had not had a BM. Continues on miralax and lactulose PRN. Remains on IV heparin with pending vascular intervention scheduled for tomorrow at 0730. Hemoglobin 8.1, BUN 19, creatinine 1.08. . Review of systems: Constitutional: No reports of fatigue, fever, or chills Cardiovascular: No reports of chest pain or palpitations Respiratory: No reports of shortness of breath or cough GI: reports of nausea, no vomiting, or diarrhea : No reports of dysuria or retention Neurovascular: reports of generalized weakness All medications have been reviewed PHYSICAL EXAMINATION: GENERAL: The patient is alert and oriented x3, not in any acute distress. Well developed, thin built, elderly appearing HEENT: Pupils are round and equally reacting to light. EOMI. No scleral icterus. No conjunctival pallor. Normocephalic, atraumatic. No pharyngeal erythema. No thyromegaly. CARDIOVASCULAR: S1 and S2 present. No murmurs, rubs, or gallops. PULMONARY: Diminished breath sounds bilaterally otherwise chest is clear to auscultation, no wheezing or crackles. ABDOMEN: Soft, nontender, thin, nondistended, normoactive bowel sounds. No palpable organomegaly. MUSCULOSKELETAL: No joint swelling or deformity. EXTREMITIES: No cyanosis, clubbing, or pedal edema. Patient has decreased bilateral pulses in both feet, right extremity is discolored with decreased pulses noted more so on the right NEUROLOGICAL: Gross neurological examination did not reveal any focal deficits. Diffusely weak SKIN: No rashes. Assessment: - Severe peripheral vascular disease as mentioned above: Vascular surgery following and planning on surgical intervention on 11/20/2024 - History of right SFA occlusion with reconstitution - Coronary artery disease with stents in the past, is maintained on aspirin and Plavix - COPD without any acute exacerbation - Hyperlipidemia - Hypertension - Carotid artery stenosis - Anemia, thrombocytopenia - Former smoker DVT prophylaxis: Patient is presently on IV heparin GI prophylaxis Full code Plan: Patient will continue on heparin with vascular surgery consulted and following planning on revascularization of lower extremities with possible bypass arterectomy and angioplasty with stenting Cardiology has been consulted and has cleared the patient with no absolute contraindication for surgery. Plavix OK to hold at this time per cardiology, however recommending to continue on aspirin 81 mg daily. Continue bowel regimen. Patient with significant weakness, recommend PT/OT therapy once cleared by vascular surgery postsurgery Follow-up on repeat labs and replace electrolytes per protocol Monitor hemoglobin closely The impression and plan of care has been dictated by Gunjan Pascual Nurse Practitioner as directed. Dr. Melo MD I have performed a history and physical examination and medical decision making of this patient, discussed the same with the dictator, and agree with the dictators assessment and plan as written, documented as a scribe. Based on total visit time, I have performed more than 50% of this visit. Objective - Vital Signs Vital signs: Vital Signs Temp 98.1 F 11/19/24 04:00 Pulse 72 11/19/24 04:00 Resp 18 11/19/24 04:00 BP 111/64 11/19/24 04:00 Pulse Ox 97 11/19/24 04:00 FiO2 Intake & Output 11/18/24 11/18/24 11/19/24 06:59 18:59 06:59 Intake Total 1163.88 835.744 Output Total 600 1200 700 Balance -600 -36.12 135.744 Weight 50.8 kg 50.7 kg Intake: IV 83.88 Heparin Sod,Pork in 0.45% 83.88 NaCl 25,000 unit In 0.45 % NaCl 1 250ml.bag @ 12 UNITS/KG/HR 5.987 mls/hr IV .Q24H PRINCE Rx#: [id number] Intake, IV Titration 600 235.744 Amount Heparin Sod,Pork in 0.45% 235.744 NaCl 25,000 unit In 0.45 % NaCl 1 250ml.bag @ 12 UNITS/KG/HR 5.987 mls/hr IV .Q24H [facility] Rx#: [id number] Lactated Ringers 1,000 ml 600 @ 50 mls/hr IV .Q20H [facility]CE Rx#:[id number] Oral 480 600 Output: Urine 600 1200 700 Other: Voiding Method Toilet Toilet # Voids 3 2 - Labs CBC & Chem 7: 11/19/24 07:03 11/19/24 07:03 Labs: Abnormal Lab Results - Last 24 Hours (Table) 11/18/24 Range/Units 06:47 APTT 56.4 H (22.0-30.0) sec Microbiology - Last 24 Hours (Table) 11/15/24 21:25 Blood Culture - Preliminary Blood Assessment and Plan Time with Patient: Less than 30
[2024-11-20] MEDS: IV FLUID CONTINUATION 900 ML IV ONE (06:30)
[2024-11-20] MEDS: MIDAZOLAM 2 MG/2 ML VIAL IV ONE (06:54)
[2024-11-20] MEDS: DEXAMETHASONE SOD PHOSPHATE 4 MG/ML 1 ML VIAL IVP STA (06:55)
[2024-11-20] MEDS ORDERED: LIDOCAINE 1% (10MG/ML) FOR IV START INTRADERMA PRN (07:16)
[2024-11-20] MEDS ORDERED: fentaNYL (PF) 50 MCG/ML 2 ML AMP IVP PRN (07:16)
[2024-11-20] MEDS ORDERED: MIDAZOLAM 2 MG/2 ML VIAL IV PRN (07:16)
[2024-11-20] MEDS ORDERED: ROCURONIUM 10 MG/ML (5 ML VIAL) IV ONE (07:27)
[2024-11-20] MEDS ORDERED: NEOSTIGMINE 1 MG/ML 10 ML VIAL ONE (07:27)
[2024-11-20] MEDS ORDERED: LIDOCAINE 1% INJ 10MG/ML (20 ML MDV) ONE (07:27)
[2024-11-20] MEDS ORDERED: MIDAZOLAM 2 MG/2 ML VIAL ONE (07:27)
[2024-11-20] MEDS ORDERED: fentaNYL (PF) 50 MCG/ML 2 ML AMP ONE (07:27)
[2024-11-20] MEDS ORDERED: GLYCOPYRROLATE 0.2 MG/ML 2 ML VIAL ONE (07:27)
[2024-11-20] MEDS ORDERED: PROPOFOL 10 MG/ML 20 ML VIAL IV ONE (07:27)
[2024-11-20] MEDS ORDERED: HEPARIN SODIUM,PORCINE 5,000 UNIT/ML 1 ML VIAL ONE (07:27)
[2024-11-20 07:31] LABS: Basophils # (A) 0.03 10*3/uL (0.00-0.10); Basophils % (A) 0.9 %; Eosinophils # (A) 0.29 10*3/uL (0.04-0.35); Eosinophils % (A) 8.3 %; HCT 23.2 % (37.2-46.3); HGB 7.8 g/dL (12.0-15.0); Immature Platelet Fraction 4.3 % (1.1-6.1); Lymphocytes # (A) 0.62 10*3/uL (0.90-5.00); Lymphocytes % (A) 17.8 %; MCH 33.9 pg (27.0-32.0); MCHC 33.6 g/dL (32.0-37.0); MCV 100.9 fL (80.0-97.0); Mean Platelet Volume 11.2 fL (9.5-12.2); Monocytes # (A) 0.39 10*3/uL (0.20-1.00); Monocytes % (A) 11.2 %; Neutrophils # (A) 2.14 10*3/uL (1.80-7.70); Neutrophils % (A) 61.5 %; Platelet Count 128 10*3/uL (140-440); WBC 3.48 10*3/uL (4.50-10.00)
[2024-11-20] MEDS: SODIUM CHLORIDE 0.9% 50 ML with ceFAZolin 2,000 MG IV ONE (07:35)
[2024-11-20 07:55] LABS: African American GFR (CKD) 68 (>60 ml/min/1.73 sqM); Anion Gap 5 mmol/L; Blood Urea Nitrogen 16 mg/dL (7-17); Calcium 9.1 mg/dL (8.4-10.2); Carbon Dioxide 29 mmol/L (22-30); Chloride 103 mmol/L (98-107); Glucose 86 mg/dL (74-99); Non-African American GFR(CKD) 59 (>60 ml/min/1.73 sqM); Potassium 4.4 mmol/L (3.5-5.1); Sodium 137 mmol/L (137-145)
[2024-11-20] MEDS: HEPARIN SODIUM,PORCINE 10,000 UNIT in SODIUM CHLORIDE 0.9% 1,000 ML IRRIGATION ONE (08:11)
[2024-11-20] MEDS: ceFAZolin 2 GM in SODIUM CHLORIDE 0.9% 500 ML 500 ML IRRIGATION ONE (08:16)
[2024-11-20] MEDS: LACTATED RINGERS 1,000 ML IV ONE (08:38)
[2024-11-20] MEDS: THROMBIN (BOVINE) 5,000 UNIT VIAL TOPICAL ONE (08:48)
[2024-11-20] MEDS: IOPAMIDOL-370 100ML BTL IVP ONE (09:14)
[2024-11-20] MEDS: HYDROmorphone 0.5 MG/0.5 ML SYRINGE IVP PRN (10:56)
--- NOTE | 2024-11-20 11:23 | P.OP ---
Date of Procedure: 11/20/24 Description of Procedure: Preoperative diagnosis: Bilateral femoral artery occlusive disease Postoperative diagnosis: Same Procedure: Right iliofemoral endarterectomy with patch angioplasty left femoral endarterectomy with patch angioplasty Angiogram with bilateral lower extremity runoff Surgeon: Kacy Deluna D.O. Theatre Program Director: Vinh Delgado EBL: 75 cc IV fluids: See records Urine output: See records Drains: None Complications: None immediately apparent Condition: Stable to recovery Operative indication and findings: Patient is a 64-year-old female with severe peripheral arterial disease and recent worsening of her right lower extremity pain. CT angiogram had been performed showing iliofemoral and femoral-popliteal disease bilaterally. Due to this and her severe pain the discussion was had and plan was for intervention. We discussed open femoral endarterectomy bilaterally with possible iliac stenting versus femoral bypass. Risks and benefits were discussed including but not limited to bleeding, infection injury to the vessel. We also discussed risk of cardiopulmonary concerns. She seems understand and was willing to proceed Procedure in detail: The patient was taken to the operative suite and placed in supine position. Bilateral groins prepped and draped in usual sterile fashion. A preprocedure timeout was performed and all parties are in agreement. A vertical incision was made in the bilateral groin with the scalpel. It was deepened through subcutaneous tissues with electrocautery. The encountered lymphatics were ligated and divided. The femoral sheath was opened sharply. The common femoral artery was dissected free circumferentially. The dissection was extended proximally to the level of the inguinal ligament, and distally to include the superficial femoral and profunda femoris arteries. They were encircled with vessel loops. ACTs were monitored and the patient was heparinized. On the right side, the inguinal ligament needed to be transected in order to find more proximal area with pulsatile flow. This was done up until the external iliac artery. A pulsatile portion was identified and a vessel loop was placed at this level. Once heparinization was adequate, flow was occluded through the vessel. An 11 blade was utilized and arteriotomy is made the Jeancarlos- Lopez scissors was utilized to enlarge the arteriotomy. An endarterectomy was performed with an eversion endarterectomy at the profunda femoris. There was decent backbleeding from the left superficial femoral artery, the right superficial femoral artery appeared occluded at its takeoff The endarterectomized surface was cleared of all debris. A bovine pericardial patch was utilized and anastomosis was created utilizing 6-0 Prolene. The anastomosis was flushed and flow was reinstituted. Hemostasis was achieved with interrupted sutures of 6-0 Prolene and thrombin and Gelfoam. A Doppler was used and revealed multiphasic flow distal to the anastomosis. There is multiphasic flow in the left popliteal artery, mono to biphasic flow in the right popliteal artery. At this point the decision was made to perform an angiogram. The left femoral patch was accessed with a multipurpose needle and a 7 [place] sheath was placed. An angiogram was obtained via this. The aorta showed diffuse disease without any obvious occlusions, the bilateral common iliac artery showed diffuse disease without any severe stenosis, there is irregularity of the left common iliac artery with moderate stenoses. On the right there is moderate stenosis of the common iliac artery. The external iliacs appear patent. The endarterectomized and patch portions appear patent without significant disease. On the right, the profunda appears widely patent. There is occlusion of the superficial femoral artery with distal reconstitution at the above-knee popliteal artery. The popliteal appears patent, there is difficult visualization of the infrapopliteal vessels with visualization of an anterior tibial and peroneal vessel although diminutive flow. On the left there is brisk flow through the superficial femoral, popliteal and three-vessel takeoff. The decision was made to forego any further interventions at this point as there was significant improvement now with pulsatile flow at the groin level and into the deep system as well. At that point, the wound was copiously irrigated with antibiotic solution. The femoral sheath was reapproximated with interrupted sutures of 3-0 Vicryl. The subcuticular tissue was reapproximated with 3-0 Vicryl. The skin was reprepped with running sutures of 4-0 Monocryl. Dressing was placed. The patient was awakened from surgery, extubated and transferred to PACU in stable condition and tolerated the procedure well.
--- NOTE | 2024-11-20 11:28 | P.ANPRN ---
Procedure Note - Anesthesia - Invasive Line Left Arterial Line Time Out Performed: Yes ([id number]) Date of Procedure: 11/20/24 Time of Procedure: 06:47 Location of Patient: PreOp Preparation: Sterile Prep, Sterile Dressing Arterial Line Location: Radial (left) Ultrasound Used: No Purpose - Visualization and Identification of Vasculature: No Needle Guage: 20g Image Stored and Saved: No Narrative: Invasive line placement per sterile protocol utilized. 1 attempt. lumen bled and flushed. Secured and dressed.
--- NOTE | 2024-11-20 11:46 | P.PN ---
Progress Note - Text Patient off the floor for surgery during cardiology rounds. Patient will be reevaluated tomorrow. Please call with questions or concerns in the meantime.
[2024-11-20] MEDS: ONDANSETRON 4 MG/2 ML VIAL IVP ONE (12:10)
[2024-11-20] MEDS: DEXAMETHASONE SOD PHOSPHATE 4 MG/ML 1 ML VIAL IV ONE (12:10)
[2024-11-20] MEDS: LACTATED RINGERS 1,000 ML IV SCH (12:10)
--- NOTE | 2024-11-20 15:44 | FL ---
EXAMINATION TYPE: FL guidance operating room DATE OF EXAM: 11/20/2024 FLUOROSCOPY femoral endarterectomy, 41 sec FL 4.6148 DAP dose 5 images are provided. [facility], , 11/20/2024 3:41 PM
--- NOTE | 2024-11-20 17:19 | P.PN ---
Subjective Progress Note Date: 11/20/24 Patient is a pleasant 64-year-old female came in with concerns of right foot pain and swelling. Patient is on Plavix patient has a history of coronary artery disease with stents in the past patient had venous Doppler of the lower extremity which did not show any DVT foot x-ray showed multifocal degenerative changes CT angiography of the lower extremity showed significant atherosclerotic vascular disease moderate to severe atherosclerotic changes in the inferior abdominal aorta severe 90% stenosis of the origin of celiac artery 30% stenosis of the superior mesenteric artery heavily calcified plaque 70% stenosis of right common iliac 60 to 70% stenosis of the left common iliac 60 to 70% right and 60% left external iliac stenosis 90% stenosis of the right common femoral artery filled with calcified plaque, right superficial femoral artery is occluded at the origin and possible severe stenosis of the proximal peroneal and anterior tibial arteries, 80% stenosis of the left common femoral artery severe stenosis of the left superficial femoral artery. Patient had extensive peripheral vascular disease along with atherosclerotic vascular disease of abdominal vasculature. Vascular surgery was consulted patient was started on IV heparin. Patient used to be a smoker presently on 2 L of oxygen saturating 94%. 11/17/2024 Patient is seen in follow-up today with vascular surgery following. Patient is continued on heparin along with aspirin and Plavix and will continue with plans on surgical intervention this Wednesday. Patient continues to report significant right foot pain although it is minimally improved from previous. Patient does have continued swelling at this time. Cardiology has been consulted for surgical clearance. Hemoglobin is noted to be 8.9 today with previous 10.2 with no active bleeding noted. Will monitor closely. Patient is to be n.p.o. on Wednesday night for surgical intervention Wednesday. Patient was having some nausea today and was shortly after Dilaudid, recommending limiting IV narcotics and will add Tylenol and oral [place]. Patient will need PT/OT therapy evaluation postsurgery. 11/18/2024 Patient is evaluated today in follow-up on the medical floor. Patient is currently pending vascular intervention on Wednesday. She continues on IV heparin. Cardiology eval the patient and has cleared for surgery. No acute complaints today. Hemoglobin remained stable at 9.0, BUN of 19 creatinine 1.13. 11/19/2024 Patient evaluated today in follow up. Family at the bedside. Patient has been up ambulating. Still had not had a BM. Continues on miralax and lactulose PRN. Remains on IV heparin with pending vascular intervention scheduled for tomorrow at 0730. Hemoglobin 8.1, BUN 19, creatinine 1.08. 11/20/2024 Patient going for bilateral femoral endarterectomy with patch today with angiogram with possible iliac stenting possible femoral to femoral bypass. Oxygen saturations 91% on 2L of oxygen via nasal cannula. Patient to be resumed on plavix tomorrow morning, has been continued on aspirin daily. Hemoglobin 7.8 today, renal function normal. . Review of systems: Constitutional: No reports of fatigue, fever, or chills Cardiovascular: No reports of chest pain or palpitations Respiratory: No reports of shortness of breath or cough GI: reports of nausea, no vomiting, or diarrhea : No reports of dysuria or retention Neurovascular: reports of generalized weakness All medications have been reviewed PHYSICAL EXAMINATION: GENERAL: The patient is alert and oriented x3, not in any acute distress. Well developed, thin built, elderly appearing HEENT: Pupils are round and equally reacting to light. EOMI. No scleral icterus. No conjunctival pallor. Normocephalic, atraumatic. No pharyngeal erythema. No thyromegaly. CARDIOVASCULAR: S1 and S2 present. No murmurs, rubs, or gallops. PULMONARY: Diminished breath sounds bilaterally otherwise chest is clear to auscultation, no wheezing or crackles. ABDOMEN: Soft, nontender, thin, nondistended, normoactive bowel sounds. No palpable organomegaly. MUSCULOSKELETAL: No joint swelling or deformity. EXTREMITIES: No cyanosis, clubbing, or pedal edema. Patient has decreased bilateral pulses in both feet, right extremity is discolored with decreased pulses noted more so on the right NEUROLOGICAL: Gross neurological examination did not reveal any focal deficits. Diffusely weak SKIN: No rashes. Assessment: - Severe peripheral vascular disease as mentioned above: Vascular surgery following and planning on surgical intervention on 11/20/2024 - History of right SFA occlusion with reconstitution - Coronary artery disease with stents in the past, is maintained on aspirin and Plavix - COPD without any acute exacerbation - Hyperlipidemia - Hypertension - Carotid artery stenosis - Anemia, thrombocytopenia - Former smoker DVT prophylaxis: Patient is presently on IV heparin GI prophylaxis Full code Plan: Patient will continue on heparin with vascular surgery consulted and following planning on revascularization of lower extremities with possible bypass endarterectomy and angioplasty with stenting Cardiology has been consulted and has cleared the patient with no absolute co ntraindication for surgery. Plavix to be resumed tomorrow, continues on aspirin daily. Continue bowel regimen. Patient with significant weakness, recommend PT/OT therapy once cleared by vascular surgery postsurgery Follow-up on repeat labs and replace electrolytes per protocol Monitor hemoglobin closely The impression and plan of care has been dictated by Gunjan Pascual, Nurse Practitioner as directed. Dr. Melo MD I have performed a history and physical examination and medical decision making of this patient, discussed the same with the dictator, and agree with the dictators assessment and plan as written, documented as a scribe. Based on total visit time, I have performed more than 50% of this visit. Objective - Vital Signs Vital signs: Vital Signs Temp 97.9 F 11/20/24 13:15 Pulse 55 L 11/20/24 14:11 Resp 20 11/20/24 13:15 BP 134/66 11/20/24 14:11 Pulse Ox 91 L 11/20/24 14:11 FiO2 Intake & Output 11/19/24 11/20/24 11/20/24 18:59 06:59 18:59 Intake Total 1403.88 300 2002 Output Total 1550 800 625 Balance -146.12 -500 1377 Weight 50.8 kg Intake: IV 83.88 200 1452 Heparin Sod,Pork in 0.45% 83.88 NaCl 25,000 unit In 0.45 % NaCl 1 250ml.bag @ 12 UNITS/KG/HR 5.987 mls/hr IV .Q24H [facility] Rx#: [id number] Intake, IV Titration 600 Amount Lactated Ringers 1,000 ml 600 @ 50 mls/hr IV .Q20H [facility] Rx#:[id number] Oral 720 100 240 Blood Product 310 Rc As-1 Unit 310 [id number] Output: Urine 1550 800 550 Estimated Blood Loss 75 Other: Voiding Method Toilet Indwelling Catheter # Voids 1 - Labs CBC & Chem 7: 11/20/24 07:21 11/20/24 07:21 Labs: Abnormal Lab Results - Last 24 Hours (Table) 11/19/24 11/20/24 Range/Units 07:03 07:21 WBC 3.48 L (4.50-10.00) 10*3/uL RBC 2.30 L (4.10-5.20) 10*6/uL Hgb 7.8 L (12.0-15.0) g/dL Hct 23.2 L (37.2-46.3) % MCV 100.9 H (80.0-97.0) fL MCH 33.9 H (27.0-32.0) pg Plt Count 128 L (140-440) 10*3/uL Lymphocytes # 0.62 L (0.90-5.00) 10*3/uL Crossmatch See Detail Assessment and Plan Time with Patient: Less than 30
[2024-11-20] MEDS: GABAPENTIN 300 MG CAP PO SCH (19:46)
[2024-11-21 03:39] VITALS: RESP 18; TEMP 98.1
[2024-11-21 06:47] LABS: HCT 25.1 % (37.2-46.3); HGB 8.3 g/dL (12.0-15.0); Immature Platelet Fraction 5.3 % (1.1-6.1); MCH 32.9 pg (27.0-32.0); MCHC 33.1 g/dL (32.0-37.0); MCV 99.6 fL (80.0-97.0); Mean Platelet Volume 11.6 fL (9.5-12.2); Platelet Count 133 10*3/uL (140-440); RBC 2.52 10*6/uL (4.10-5.20); RDW 16.5 % (11.5-14.5); WBC 6.06 10*3/uL (4.50-10.00)
[2024-11-21 07:04] LABS: African American GFR (CKD) 53 (>60 ml/min/1.73 sqM); Anion Gap 3 mmol/L; Blood Urea Nitrogen 18 mg/dL (7-17); Calcium 8.7 mg/dL (8.4-10.2); Carbon Dioxide 28 mmol/L (22-30); Chloride 105 mmol/L (98-107); Glucose 123 mg/dL (74-99); Non-African American GFR(CKD) 46 (>60 ml/min/1.73 sqM); Potassium 4.3 mmol/L (3.5-5.1); Sodium 136 mmol/L (137-145)
[2024-11-21] MEDS: CLOPIDOGREL 75 MG TAB PO SCH (09:23)
--- NOTE | 2024-11-21 10:20 | P.PN ---
Subjective Progress Note Date: 11/21/24 Principal diagnosis: Peripheral arterial disease, right lower extremity pain Patient is seen and examined today as a follow-up. She is postop day #1 for right iliofemoral endarterectomy with patch angioplasty and left femoral endarterectomy with patch angioplasty with angiogram with bilateral lower extremity runoff. She states legs are feeling much better. Pain is improved. Color improved to her lower extremities and they are warm to touch. The patient has been up and ambulating in the hallway. Her Deluna catheter has been discontinued. She is tolerating her diet. Objective - Vital Signs Vital signs: Vital Signs Temp 98.1 F 11/21/24 03:33 Pulse 57 L 11/21/24 03:33 Resp 18 11/21/24 03:33 BP 114/62 11/21/24 03:33 Pulse Ox 93 L 11/21/24 09:19 FiO2 Intake & Output 11/20/24 11/21/24 11/21/24 18:59 06:59 18:59 Intake Total 2242 240 Output Total 625 275 500 Balance 1617 -275 -260 Intake: IV 1452 Oral 480 240 Blood Product 310 Rc As-1 Unit 310 [id number] Output: Urine 550 275 500 Estimated Blood Loss 75 Other: Voiding Method Indwelling Catheter Indwelling Catheter # Voids 1 - Exam General appearance: The patient is alert, oriented, appears in no acute distress. HET: Head is normocephalic and atraumatic. Pupils are equal and reactive. Neck: Supple. Bilateral carotid bruit. Heart: Regular. Lungs: Equal expansion, normal respiratory effort. Abdomen: Soft, nontender, nondistended. Extremities: Normal skin color and turgor. Bilateral groins with dressing clean dry and intact. Some soft swelling in the right groin with ecchymosis. Ecch ymosis to left groin. Lower extremities pink, warm to touch with good capillary refill. Bilateral PT and DP signals present.. Neurological: No focal deficits. Strength and sensation are grossly intact. - Labs CBC & Chem 7: 11/21/24 06:28 11/21/24 06:28 Labs: Abnormal Lab Results - Last 24 Hours (Table) 11/21/24 11/21/24 Range/Units 06:28 06:28 RBC 2.52 L (4.10-5.20) 10*6/uL Hgb 8.3 L (12.0-15.0) g/dL Hct 25.1 L (37.2-46.3) % MCV 99.6 H (80.0-97.0) fL MCH 32.9 H (27.0-32.0) pg Plt Count 133 L (140-440) 10*3/uL Sodium 136 L (137-145) mmol/L BUN 18 H (7-17) mg/dL Creatinine 1.24 H (0.52-1.04) mg/dL Glucose 123 H (74-99) mg/dL Microbiology - Last 24 Hours (Table) 11/15/24 21:25 Blood Culture - Final Blood Assessment and Plan Assessment: 1. Postop day #1 for right iliofemoral endarterectomy with patch angioplasty and left femoral endarterectomy with patch angioplasty 2. Severe peripheral arterial disease with significant arterial stenosis and calcification 3. Right SFA occlusion with reconstitution 4. Right lower extremity rest pain 5. Coronary artery disease with multiple stents most recent angioplasty 09/13/2024 6. Myocardial infarction 7. Hypertension and hyperlipidemia 8. Former smoker greater than 50 years Plan: 1. Resume aspirin and Plavix 2. Encourage ambulation 3. Discharge instructions reviewed with patient and 4. Patient is cleared from vascular surgery for discharge, follow-up in [address] Kaplan Thank you for this consultation. The impression and plan of care has been dictated as directed. Dr. Delgado I performed a history and examination of this patient, discussed the same with the dictator. I agree with the dictator's note ,documented as a scribe. Any additional findings or plans will be noted.
[2024-11-21 10:38] VITALS: PULSE 70
[2024-11-21 11:28] VITALS: BP 142/65
--- NOTE | 2024-11-21 12:47 | P.PN ---
Subjective HISTORY OF PRESENT ILLNESS: This is a 64-year-old female patient of Dr. Manriquez with past medical history of CAD with multivessel stenting, dyslipidemia, hypertension, peripheral vascular disease, family history of premature coronary artery disease, severe mitral valve regurgitation, bilateral carotid artery stenosis. We have been asked to evaluate the patient for cardiac clearance for peripheral artery revascularization, history of smoking greater than 50 years. Patient was sent into the emergency center from her PCP due to right foot pain and swelling. Patient gives history that her right foot was painful and red and she did get improvement of that with antibiotics. She states that the pain has been present for the past 5 days and pain is not severe at this time. No numbness or tingling. She denies chest pain or chest pressure. No shortness of breath. Patient was seen by vascular surgery and due to significant arterial stenosis and calcification, it was recommended that patient undergo aortobifem bypass, bilateral iliac stents, endarterectomy of SFA, possible angioplasty/stent. This is scheduled for Wednesday. Patient is currently on heparin drip. Blood pressure 121/74, heart rate 62, pulse ox 94% on 2 L nasal cannula. -Venous duplex of the right lower extremity negative for DVT. -Laboratory studies: WBC 4.7, hemoglobin 8.9. Potassium 5.2, BUN 23 creatinine 1.12. -Home cardiac medications: Aspirin 81 mg daily, atorvastatin 40 mg at bedtime, Plavix 75 mg daily, lisinopril 5 mg daily. -Cardiac catheterization revealed in-stent restenosis in the mid right coronary artery. Patient was evaluated for mitral valve repair and CABG but was felt to be high risk. -PTCA of in-stent restenosis of the mid RCA with was performed on 09/13/2024. - Echocardiogram performed in the office on 10/23/2024 revealed EF 50 to 55%, mild aortic regurgitation, moderate to severe mitral digitation, mild to moderate tricuspid regurgitation, PASP 44 mmHg, mild pulmonic regurgitation. Progress note 11/18/2024 BP 118/55, heart rate 66 bpm Hemoglobin 9, BUN 19, creatinine 1.13 No new active chest pain chest pressure. No new cardiovascular events, sinus rhythm on telemetry 11/19/2024 BP 105/56, heart rate 77 bpm Hemoglobin 8.1, creatinine 1.08, stable, no acute signs of bleeding No acute cardiac and vascular events overnight Sinus rhythm on telemetry 11/21/2024 Patient is status post right iliofemoral endarterectomy with patch angioplasty left femoral endarterectomy with patch angioplasty. Postop day #1. Patient examined this morning to bedside. Patient's family is present. Patient denies any chest pain or pressure. She denies shortness of breath. Vital signs are stable. PHYSICAL EXAM: VITAL SIGNS: Reviewed. GENERAL: Well-developed in no acute distress. NECK: Supple. No JVD or thyromegaly LUNGS: Respirations even and unlabored. Lungs essentially clear to auscultation bilaterally. HEART: Regular rate and rhythm. S1 and S2 heard. EXTREMITIES: Normal range of motion. No clubbing or cyanosis. Peripheral puls es intact. No lower extremity edema ASSESSMENT: Severe peripheral artery disease with significant arterial stenosis and calcification Right SFA occlusion and reconstitution Right lower extremity rest pain Patient is status post right iliofemoral endarterectomy with patch angioplasty left femoral endarterectomy with patch angioplasty, 11/20/2024 History of coronary artery disease with multivessel stenting including recent PTCA of in-stent restenosis of the mid RCA on 09/13/2024 Severe mitral valve regurgitation Hypertension Dyslipidemia Bilateral carotid artery stenosis Anemia Remote history of tobacco use PLAN: Continue current cardiac medications Patient is currently stable from a cardiac standpoint We will sign off. Please reconsult if needed. Nurse practitioner note has been reviewed by physician. Signing provider agrees with the documented findings, assessment, and plan of care documented by DYNAMITER as a scribe. Objective - Vital Signs Vital signs: Vital Signs Temp 98.1 F 11/21/24 08:00 Pulse 70 11/21/24 08:00 Resp 18 11/21/24 11:27 BP 142/65 11/21/24 11:27 Pulse Ox 93 L 11/21/24 11:27 FiO2 Intake & Output 11/20/24 11/21/24 11/21/24 18:59 06:59 18:59 Intake Total 2242 240 Output Total 625 275 500 Balance 8767 -275 -260 Intake: IV 1452 Oral 480 240 Blood Product 310 Rc As-1 Unit 310 [id number] Output: Urine 550 275 500 Estimated Blood Loss 75 Other: Voiding Method Indwelling Catheter Indwelling Catheter Toilet # Voids 1 - Labs CBC & Chem 7: 11/21/24 06:28 11/21/24 06:28 Labs: Abnormal Lab Results - Last 24 Hours (Table) 11/21/24 11/21/24 Range/Units 06:28 06:28 RBC 2.52 L (4.10-5.20) 10*6/uL Hgb 8.3 L (12.0-15.0) g/dL Hct 25.1 L (37.2-46.3) % MCV 99.6 H (80.0-97.0) fL MCH 32.9 H (27.0-32.0) pg Plt Count 133 L (140-440) 10*3/uL Sodium 136 L (137-145) mmol/L BUN 18 H (7-17) mg/dL Creatinine 1.24 H (0.52-1.04) mg/dL Glucose 123 H (74-99) mg/dL Microbiology - Last 24 Hours (Table) 11/15/24 21:25 Blood Culture - Final Blood
[2024-11-21 13:51] VITALS: BMI 19.2
--- NOTE | 2024-11-22 06:24 | DS ---
DISCHARGE SUMMARY FINAL DIAGNOSES: 1. Severe peripheral vascular disease, status post bilateral femoral endarterectomy with a patch. 2. History of right SFA occlusion and reconstruction. 3. History of coronary artery disease stent. 4. Chronic obstructive pulmonary disease without any exacerbation. 5. Multiple medical issues. DISCHARGE DISPOSITION: The patient is being discharged in stable condition and guarded prognosis. Discharge cleared by Vascular Surgery. HISTORY OF PRESENT ILLNESS: This is a 64-year-old woman with a past medical problems, admitted with peripheral vascular disease. Surgical intervention was carried out by Vascular Surgery team and the patient improved significantly. Currently, hemoglobin is stable around an 8.3. Recommended discharge and close outpatient followup with Dr. Villegas regarding renal functions and anemia and follow up with Vascular Surgery. DISCHARGE MEDICATIONS: Please refer to the discharge list of medications. Recommend Neurontin, Tylenol, [place], and Spiriva and incentive spirometry. Follow up with Dr. Bolton as an outpatient. MMODL / IJN: [id number] /
--- NOTE | 2024-11-23 12:16 | CDI ---
Documentation Clarification Form Date: 11/23/24 From: Tara Rivera Admit Date: 11/16/2024 02:38:00 AM Patient Name: Sweetie Bernal Visit Number: [id number] Discharge Date: 11/21/2024 03:13:00 PM ATTENTION: The Clinical Documentation Specialists (CDI) and [facility] Coding Staff appreciate your assistance in clarifying documentation. Please respond to the clarification below the line at the bottom and electronically sign. The CDI & [facility] Coding staff will review the response and follow-up if needed. Please note: Queries are made part of the Legal Health Record. If you have any questions, please contact the author of this message via ITS. Doctor/Provider: Donna Neville, Your patient has a hemoglobin/hematocrit level of [insert lab value, date]. Please clarify if there is an additional diagnosis and/or clinical significance related to these lab values. History/Risk Factors: COPD/Emphysema, HLD, HTN, [place] Clinical indicators: Severeperipheral vascular disease,status postbilateralfemoral endarterectomy. HGB (11/15-11/21): 10.2, 8.9, 9.0, 8.1, 7.8, 8.3 HCT (11/15-11/21): 30.8, 27.9, 28.0, 25.5, 23.2 25.1 Blood Loss: 75ml Treatment: 1 unit of red blood cells on 11/20 during surgery Is there an additional diagnosis and/or clinical significance related to the above lab result/information: [ ] Acute blood loss anemia [ ] Acute on chronic blood loss anemia [ ] No additional diagnosis/Not clinically significant [ ] Unable to determine [ ] Other, please specify Unable to determine MTDD
== END 2024-11-21 15:13 | disposition home or self-care (01) | DRG 253 ==
LOC: EC 16:57 → 5NMEDONC 11-16 02:38 → 3SCARD 11-16 03:11
PROVIDERS: ADMIT Hospitalist; ATTEND Hospitalist
PROC: 30233N1 Transfusion of Nonautologous Red Blood Cells into Peripheral Vein, Percutaneous Approach (ICD-10-PCS; 2024-11-20)
PROC: 04CL0ZZ Extirpation of Matter from Left Femoral Artery, Open Approach (ICD-10-PCS; principal; 2024-11-20 07:30)
PROC: 04UK0KZ Supplement Right Femoral Artery with Nonautologous Tissue Substitute, Open Approach (ICD-10-PCS; principal; 2024-11-20 07:30)
PROC: 04CK0ZZ Extirpation of Matter from Right Femoral Artery, Open Approach (ICD-10-PCS; principal; 2024-11-20 07:30)
PROC: 04UL0KZ Supplement Left Femoral Artery with Nonautologous Tissue Substitute, Open Approach (ICD-10-PCS; principal; 2024-11-20 07:30)
DX: I70.221 Atherosclerosis of native arteries of extremities with rest pain, right leg (principal); R64 Cachexia; D69.6 Thrombocytopenia, unspecified; J43.9 Emphysema, unspecified; I10 Essential (primary) hypertension; I65.23 Occlusion and stenosis of bilateral carotid arteries; I08.1 Rheumatic disorders of both mitral and tricuspid valves; D64.9 Anemia, unspecified; Z68.1 Body mass index [BMI] 19.9 or less, adult; E78.5 Hyperlipidemia, unspecified; I25.10 Atherosclerotic heart disease of native coronary artery without angina pectoris; I25.2 Old myocardial infarction; Z79.02 Long term (current) use of antithrombotics/antiplatelets; Z79.82 Long term (current) use of aspirin; Z87.891 Personal history of nicotine dependence; Z79.51 Long term (current) use of inhaled steroids; Z79.899 Other long term (current) drug therapy; Z95.5 Presence of coronary angioplasty implant and graft
CPT/HCPCS: 36415; 36430; 75635; 80048; 80053; 83605; 83735; 85025; 85027; 85610; 85730; 86850; 86900; 86901; 86920; 87040; 88304; 88311; 93923; 94640; 94760; 96361; 96365; 96366; 96367; 96375; 99285